=== PATIENT | male | born 1950 | race Caucasian/White ===

== ENCOUNTER 2017-01-27 15:24 | Inpatient (IN) | payer MEDICARE ==
[~2017-01-27] VITALS: Ht 170.2 cm; Wt 78.0 kg
[2017-02-17] MEDS ORDERED: TRAM50TA PO (14:08)
[2017-02-17] MEDS ORDERED: CYAN100025 SL (14:08)
[2017-02-17] MEDS ORDERED: CALC1TAB12 PO (14:08)
[2017-02-17] MEDS ORDERED: VITA100018 PO (14:08)
[2017-02-17] MEDS ORDERED: TYLE325T PO (14:08)
[2017-02-17] MEDS ORDERED: MULT-65 PO (14:13)
[2017-02-17] MEDS ORDERED: OMEGCAP PO (14:13)
[2017-02-17] MEDS ORDERED: ECHI80CA PO (14:13)
[2017-02-24] MEDS ORDERED: NEOSTIGMINE 3 MG/3 ML SYR IV ONE (12:00)
[2017-02-24] MEDS ORDERED: LACTATED RINGER'S 1000 ML INJ 2,000 ML IV ONE (12:00)
[2017-02-24] MEDS ORDERED: PROPOFOL 200 MG/20 ML AMP IV ONE (12:00)
[2017-02-24] MEDS ORDERED: ONDANSETRON HCL 4 MG/2 ML VIAL IV PUSH ONE (12:00)
[2017-02-24] MEDS ORDERED: PHENYLEPH/NS 1000 MCG/10 ML SYR IV ONE (12:00)
[2017-02-24] MEDS ORDERED: METOPROLOL TARTRATE 25 MG TAB PO PRN (12:15)
[2017-02-24] MEDS ORDERED: LACTATED RINGER'S 1000 ML IV PRN (12:15)
[2017-02-24] MEDS ORDERED: CHLORHEXIDINE GLUCONATE 2 % 1 PACK (2 CLOTHS) TOPICAL PRN (12:15)
[2017-02-24] MEDS ORDERED: ceFAZolin 1,000 MG/NS 100 ML IV SCH ×2 (12:15)
[2017-02-24] MEDS ORDERED: POVIDONE IODINE 5% (ANTISEPSIS KIT) 4 APPLICATIONS EACH NARE PRN (12:15)
[2017-02-24] MEDS ORDERED: SODIUM CHLORID 0.9% 500 ML IV PRN (12:15)
[2017-02-24] MEDS ORDERED: METRONIDAZOLE 500 MG/100 ML ISONTONIC SOLN IV SCH (12:15)
[2017-02-24] MEDS ORDERED: ALVIMOPAN 12 MG CAPSULE - On Call PO SCH (12:15)
[2017-02-24] MEDS ORDERED: INSULIN HUMAN REGULAR 1,000 UNITS/10 ML VIAL SQ PRN (12:15)
[2017-02-24] MEDS ORDERED: DEXT 5%-NACL 0.9% 1000 ML INJ 1,000 ML IV SCH (12:30)
--- NOTE | 2017-02-24 13:08 | PD.HP.UP ---
H&P Update Note The Pre-Admit History and Physical Examination regarding the above named patient was reviewed (including, but not limited to, vital signs, heart, lungs, co-morbid conditions), and upon re-examination it is noted that: the patient's condition has not significantly changed since the last examination. Zeb Santiago MD Feb 24, 2017 13:08
[2017-02-24] MEDS ORDERED: FAMOTIDINE 20 MG/2 ML VIAL ONE (13:14)
[2017-02-24] MEDS ORDERED: ACETAMINOPHEN 1000 MG/100 ML 100 ML IV ONE (13:14)
[2017-02-24] MEDS ORDERED: MIDAZOLAM HCL 2 MG/2 ML VIAL ONE (13:14)
[2017-02-24] MEDS: D5-LR + KCL 20 MEQ INJ 1,000 ML IV SCH ×4 (15:17→23:17)
[2017-02-24] MEDS ORDERED: POTASSIUM CHLOR 20 MEQ PREMIX 100 ML IV PRN (15:30)
[2017-02-24] MEDS ORDERED: ACETAMINOPHEN/HYDROcodone 325 MG/5 MG TAB PO PRN (15:30)
[2017-02-24] MEDS ORDERED: BENZOCAINE 6 MG/MENTHOL 10 MG LOZENGE BUCCAL PRN (15:30)
[2017-02-24] MEDS ORDERED: ONDANSETRON HCL 4 MG/2 ML VIAL IV PRN (15:30)
[2017-02-24] MEDS ORDERED: NALOXONE HCL 0.4 MG/ML AMP IV PRN (15:30)
[2017-02-24] MEDS ORDERED: POTASSIUM CHLOR 40 MEQ PREMIX 100 ML IV PRN (15:30)
[2017-02-24] MEDS ORDERED: SODIUM CHLORIDE 0.9% FLUSH 10 ML FLUSH IV FLUSH PRN (15:30)
[2017-02-24] MEDS ORDERED: ENALAPRILAT 1.25 MG/ML VIAL IV PRN (15:30)
[2017-02-24] MEDS ORDERED: Post-op Orders (for Pharmacy) MISC XX ONE (15:30)
[2017-02-24] MEDS ORDERED: *morphine SULFATE 8 MG/ML PERIprocedure ONLY ONE ×2 (15:59→16:37)
[2017-02-24] MEDS ORDERED: DO NOT ADM ANY ANTICOAGULANT DRUGS PRN (16:30)
[2017-02-24 17:12] LABS: AUTOMATED NEUTROPHIL # 5.3 TH/MM3 (1.8-7.7); BASOPHIL % 0.3 % (0.0-2.0); EOSINOPHIL % 0.8 % (0.0-4.0); HEMATOCRIT 39.6 % (39.0-51.0); LYMPH % 7.9 % (9.0-44.0); LYMPHOCYTE # 0.5 TH/MM3 (1.0-4.8); MEAN CELL VOLUME 88.6 FL (80.0-100.0); MEAN CORPUSCULAR HEMOGLOBIN 29.5 PG (27.0-34.0); MEAN CORPUSCULAR HGB CONC 33.3 % (32.0-36.0); MONO % 4.3 % (0.0-8.0); NEUT % 86.7 % (16.0-70.0); PLATELET COUNT 136 TH/MM3 (150-450); RED BLOOD COUNT 4.47 MIL/MM3 (4.50-5.90); RED CELL DISTRIBUTION WIDTH 14.6 % (11.6-17.2); WHITE BLOOD COUNT 6.1 TH/MM3 (4.0-11.0)
[2017-02-24 17:22] LABS: HEMO FLAGS AUTO DIFF
[2017-02-24] MEDS ORDERED: *ENALAPRILAT 1.25 MG/ML VIAL PERIprocedural Use ONLY ONE (17:26)
[2017-02-24] MEDS: METOCLOPRAMIDE HCL 10 MG/2 ML VIAL IVS SCH ×2 (17:31→23:57)
[2017-02-24 17:54] LABS: BICARBONATE 31.3 MEQ/L (21.0-32.0)
[2017-02-24 17:58] LABS: SCAN/DIFF AUTO DIFF CONFIRMED
[2017-02-24] MEDS: MORPHINE SULFATE 30 MG/30 ML PCA IV SCH (18:15)
[2017-02-24 18:30] VITALS: BP 158/58; PULSE 50; PULSE 68; RESP 20; TEMP 97.4; O2SAT 96
[2017-02-24 19:00] VITALS: BP 156/82; PULSE 52; PULSE 59; RESP 14; TEMP 97.9; O2SAT 97
[2017-02-24 20:00] VITALS: PULSE 56
[2017-02-24 21:00] VITALS: PULSE 54
[2017-02-24] MEDS: SODIUM CHLORIDE 0.9% FLUSH 10 ML FLUSH IV FLUSH SCH (21:18)
[2017-02-24] MEDS: FUROSEMIDE 20 MG/2 ML VIAL IV SCH (21:18)
[2017-02-24] MEDS: metroNIDAZOLE 500 MG INJ 100 ML IV SCH (21:18)
[2017-02-24] MEDS: PCA - TOTAL MG MORPHINE DELIVERED PER SHIFT SCH (21:31)
[2017-02-24 22:00] VITALS: PULSE 50
[2017-02-24 23:00] VITALS: BP 140/77; PULSE 56; PULSE 58; RESP 14; TEMP 98.6; O2SAT 96
[2017-02-25] VITALS (21 sets, daily range): BP systolic 141–163; BP diastolic 78–92; PULSE 54–83; RESP 14–20; TEMP 97.5–98.9; O2SAT 96–98
[2017-02-25] MEDS: MORPHINE SULFATE 30 MG/30 ML PCA IV SCH ×2 (00:08→22:24)
[2017-02-25] MEDS: metroNIDAZOLE 500 MG INJ 100 ML IV SCH ×2 (04:00→12:17)
[2017-02-25] MEDS: PCA - TOTAL MG MORPHINE DELIVERED PER SHIFT SCH ×3 (06:00→22:00)
[2017-02-25] MEDS: METOCLOPRAMIDE HCL 10 MG/2 ML VIAL IVS SCH ×4 (06:08→22:26)
[2017-02-25] MEDS: D5-LR + KCL 20 MEQ INJ 1,000 ML IV SCH ×3 (06:09→23:17)
[2017-02-25 06:28] LABS: AUTOMATED NEUTROPHIL # 6.4 TH/MM3 (1.8-7.7); BASOPHIL % 0.1 % (0.0-2.0); LYMPH % 6.4 % (9.0-44.0); LYMPHOCYTE # 0.5 TH/MM3 (1.0-4.8); MEAN CELL VOLUME 87.2 FL (80.0-100.0); MEAN CORPUSCULAR HEMOGLOBIN 29.9 PG (27.0-34.0); MEAN CORPUSCULAR HGB CONC 34.3 % (32.0-36.0); MONO % 9.8 % (0.0-8.0); NEUT % 83.7 % (16.0-70.0); PLATELET COUNT 125 TH/MM3 (150-450); RED BLOOD COUNT 4.13 MIL/MM3 (4.50-5.90); RED CELL DISTRIBUTION WIDTH 14.6 % (11.6-17.2); WHITE BLOOD COUNT 7.6 TH/MM3 (4.0-11.0)
[2017-02-25 06:34] LABS: HEMO FLAGS AUTO DIFF
[2017-02-25 06:46] LABS: BICARBONATE 34.3 MEQ/L (21.0-32.0); POTASSIUM 4.4 MEQ/L (3.5-5.1)
[2017-02-25 07:52] LABS: SCAN/DIFF AUTO DIFF CONFIRMED
[2017-02-25] MEDS: SODIUM CHLORIDE 0.9% FLUSH 10 ML FLUSH IV FLUSH SCH ×2 (09:33→20:08)
[2017-02-25] MEDS: ALVIMOPAN 12 MG CAPSULE - Post-op dosing PO SCH ×2 (09:33→20:08)
[2017-02-25] MEDS: PANTOPRAZOLE SODIUM 40 MG VIAL IVP SCH (09:34)
[2017-02-25] MEDS: FUROSEMIDE 20 MG/2 ML VIAL IV SCH ×2 (09:34→20:08)
--- NOTE | 2017-02-25 16:07 | HHI.PR ---
Subjective Remarks No N or V. No BMs. Objective Vital Signs Date Time Temp Pulse Resp B/P (MAP) Pulse Ox O2 Delivery O2 Flow Rate FiO2 02/25/17 15:00 98.7 75 20 162/92 (115) 97 02/25/17 15:00 96 Nasal Cannula 1.00 02/25/17 15:00 80 02/25/17 14:00 79 02/25/17 13:42 18 02/25/17 13:00 75 02/25/17 12:00 71 02/25/17 11:10 97 02/25/17 11:00 78 02/25/17 11:00 98.6 64 20 163/82 (109) 96 02/25/17 11:00 96 Nasal Cannula 1.00 02/25/17 10:00 82 02/25/17 09:58 97 02/25/17 09:00 83 02/25/17 08:00 64 02/25/17 07:00 57 02/25/17 07:00 97 Nasal Cannula 1.00 02/25/17 07:00 98.7 59 20 151/84 (106) 97 02/25/17 06:00 54 02/25/17 06:00 14 02/25/17 05:00 56 02/25/17 04:00 58 02/25/17 03:00 97.5 55 14 141/78 (99) 97 02/25/17 03:00 54 02/25/17 02:00 54 02/25/17 01:00 56 02/25/17 00:35 12 02/25/17 00:08 12 02/25/17 00:00 54 02/24/17 23:00 58 02/24/17 23:00 98.6 56 14 140/77 (98) 96 02/24/17 22:00 50 02/24/17 21:31 14 02/24/17 21:00 54 02/24/17 20:00 56 02/24/17 19:00 97.9 59 14 156/82 (106) 97 02/24/17 19:00 52 02/24/17 18:30 68 02/24/17 18:30 97.4 50 20 158/58 (91) 96 02/24/17 18:15 15 02/24/17 18:00 97.8 53 15 154/81 (105) 100 Nasal Cannula 3 8/31/17 17:30 50 15 164/85 (111) 100 Nasal Cannula 3 02/24/17 17:00 73 17 166/92 (116) 100 Nasal Cannula 3 02/24/17 16:30 67 17 168/95 (119) 98 Nasal Cannula 3 02/24/17 16:15 55 15 174/90 (118) 98 Nasal Cannula 3 I/O 02/24/17 02/24/17 02/24/17 02/25/17 02/25/17 02/25/17 07:00 15:00 23:00 07:00 15:00 23:00 Intake Total 100 ml 2900 ml 3139 ml 1000 ml Output Total 1650 ml 2100 ml Balance 100 ml 1250 ml 1039 ml 1000 ml Intake IV Total 100 ml 2900 ml 3139 ml 1000 ml Output Urine Total 1550 ml 2100 ml Estimated Blood Loss 100 ml Result Diagram: 02/25/17 0520 02/25/17 0520 Objective Remarks VS-S Abd: soft,flat,dressing dry Assessment and Plan Assessment and Plan Stable POD#1 Transfer. 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 PO meds. Advance diet Zeb Santiago MD Feb 25, 2017 16:07
[2017-02-25] MEDS: ACETAMINOPHEN/HYDROcodone 325 MG/5 MG TAB PO PRN (20:07)
[2017-02-25] MEDS ORDERED: ALVIMOPAN 12 MG CAPSULE PO SCH (21:00)
[2017-02-26] VITALS: BP 146/85; PULSE 79; RESP 20; TEMP 98.5; O2SAT 95
[2017-02-26 04:00] VITALS: BP 158/97; PULSE 82; RESP 18; TEMP 98.2; O2SAT 96
[2017-02-26] MEDS: METOCLOPRAMIDE HCL 10 MG/2 ML VIAL IVS SCH ×3 (05:36→17:07)
[2017-02-26] MEDS: PCA - TOTAL MG MORPHINE DELIVERED PER SHIFT SCH ×2 (05:36→14:06)
[2017-02-26 05:49] LABS: AUTOMATED NEUTROPHIL # 5.7 TH/MM3 (1.8-7.7); BASOPHIL % 0.2 % (0.0-2.0); EOSINOPHIL % 0.2 % (0.0-4.0); HEMATOCRIT 38.3 % (39.0-51.0); LYMPH % 7.3 % (9.0-44.0); LYMPHOCYTE # 0.5 TH/MM3 (1.0-4.8); MEAN CELL VOLUME 87.2 FL (80.0-100.0); MEAN CORPUSCULAR HEMOGLOBIN 29.1 PG (27.0-34.0); MEAN CORPUSCULAR HGB CONC 33.4 % (32.0-36.0); MONO % 11.7 % (0.0-8.0); NEUT % 80.6 % (16.0-70.0); PLATELET COUNT 118 TH/MM3 (150-450); RED BLOOD COUNT 4.39 MIL/MM3 (4.50-5.90); RED CELL DISTRIBUTION WIDTH 14.7 % (11.6-17.2)
[2017-02-26 05:51] LABS: HEMO FLAGS AUTO DIFF
[2017-02-26 06:08] LABS: BICARBONATE 35.9 MEQ/L (21.0-32.0); POTASSIUM 4.1 MEQ/L (3.5-5.1)
[2017-02-26 07:46] LABS: SCAN/DIFF AUTO DIFF CONFIRMED
[2017-02-26 08:26] VITALS: BP 179/102; PULSE 83; RESP 16; TEMP 99.3; O2SAT 92
[2017-02-26] MEDS: ALVIMOPAN 12 MG CAPSULE - Post-op dosing PO SCH ×2 (10:26→21:05)
[2017-02-26] MEDS: SODIUM CHLORIDE 0.9% FLUSH 10 ML FLUSH IV FLUSH SCH ×2 (10:26→21:05)
[2017-02-26] MEDS: PANTOPRAZOLE SODIUM 40 MG VIAL IVP SCH (10:26)
[2017-02-26] MEDS: FUROSEMIDE 20 MG/2 ML VIAL IV SCH ×2 (10:26→21:05)
[2017-02-26 12:00] VITALS: BP 151/95; PULSE 97; RESP 16; TEMP 99.9; O2SAT 94
[2017-02-26] MEDS: D5-LR + KCL 20 MEQ INJ 1,000 ML IV SCH (12:31)
--- NOTE | 2017-02-26 15:14 | HHI.PR ---
Subjective Remarks POD#2 s/p left colectomy Comfortable, hungry Objective Vital Signs Date Time Temp Pulse Resp B/P (MAP) Pulse Ox O2 Delivery O2 Flow Rate FiO2 02/26/17 14:06 16 02/26/17 12:00 94 Room Air 02/26/17 12:00 99.9 97 16 151/95 (113) 94 02/26/17 08:26 99.3 83 16 179/102 (127) 92 02/26/17 08:26 93 Room Air 02/26/17 05:36 18 02/26/17 04:00 Nasal Cannula 1.00 02/26/17 04:00 98.2 82 18 158/97 (117) 96 02/26/17 00:00 98.5 79 20 146/85 (105) 95 02/26/17 00:00 Nasal Cannula 1.00 02/25/17 22:24 20 02/25/17 22:00 20 02/25/17 20:12 02/25/17 20:00 Nasal Cannula 1.00 02/25/17 20:00 98.9 82 20 160/89 (112) 96 02/25/17 16:00 83 I/O 02/25/17 02/25/17 02/25/17 02/26/17 02/26/17 02/26/17 07:00 15:00 23:00 07:00 15:00 23:00 Intake Total 3139 ml 1000 ml 2481 ml 1760 ml Output Total 2100 ml 1200 ml 1800 ml Balance 1039 ml 1000 ml 1281 ml -40 ml Intake Oral 960 ml 240 ml IV Total 3139 ml 1000 ml 1521 ml 1520 ml Output Urine Total 2100 ml 1200 ml 1800 ml # Bowel Movements 0 Result Diagram: 02/26/17 0501 02/26/17 0501 Objective Remarks Abdomen soft, nondistended, tender Wound clean Assessment and Plan Assessment and Plan Advance diet Mobilize Watch platelets Farhana Montez MD Feb 26, 2017 15:14
[2017-02-26 15:45] VITALS: BP 143/98; PULSE 88; RESP 16; TEMP 99.8; O2SAT 94
[2017-02-26] MEDS: ACETAMINOPHEN/HYDROcodone 325 MG/5 MG TAB PO PRN ×2 (17:08→21:05)
[2017-02-26 20:00] VITALS: BP 150/96; PULSE 77; RESP 18; TEMP 98.2; O2SAT 95
[2017-02-26] MEDS: ZOLPIDEM TARTRATE 5 MG TAB PO PRN (21:05)
[2017-02-27] VITALS: BP 134/86; PULSE 79; RESP 18; TEMP 98.4; O2SAT 96
[2017-02-27 04:00] VITALS: BP 124/85; PULSE 78; RESP 20; TEMP 98.6; O2SAT 96
[2017-02-27] MEDS: METOCLOPRAMIDE HCL 10 MG/2 ML VIAL IVS SCH ×4 (05:25→17:10)
--- NOTE | 2017-02-27 06:16 | MP ---
cc: DEEPAK COBURN M.D., JOHN T. M.D. DATE OF SURGERY: 02/24/2017 PREOPERATIVE DIAGNOSIS: Distal transverse colon carcinoma. POSTOPERATIVE DIAGNOSIS: Mid transverse colon carcinoma. OPERATIVE PROCEDURE Extended ascending colectomy with ileotransverse anastomosis. ANESTHESIA: General endotracheal anesthesia SURGEON: Dr. Santiago CHIEF ENGINEERING DIVISION: Dr. Thomas. ESTIMATED BLOOD LOSS: 100 cc OPERATING TIME One hour, 15 minutes. OPERATIVE FINDINGS: This patient is well known to dc. About 7 years ago, he was referred to dc for a colon polyp. At that time he weighed 400 pounds and underwent laparotomy for resection of this polyp. However, the polyp could not be found at the time of surgery by colonoscopy with me and with the medical imaging tech who referred him. For this reason, no resection was done. The patient then underwent a follow up colonoscopy about a year later with his medical imaging tech and no polyp was identified. The patient then underwent gastric bypass procedure with Dr. Phan and lost about 250 pounds. He then developed lymphoma and has had five recurrences of the lymphoma treated by Dr. Teresa Coburn. Last year he underwent colonoscopy with Dr. Andrews and was found to have a large polyp in the distal transverse colon that was marked. At that time he had stage IV lymphoma and was being treated with chemotherapy and for this reason could not undergo resection. He came back to [facility] this year for colonoscopy and he was off his chemotherapy for a while and his lymphoma is in remission once again and colonoscopy showed what appeared to be a transverse colon carcinoma. I discussed the case with Dr. Teresa Coburn and he said that his lymphoma was not life threatening at this time or in the near future and, therefore, resection was indicated. At surgery exploration of the abdominal cavity revealed that the liver was palpably normal as was the remainder of the colon and the small bowel. The lesion was more in the mid portion of the transverse colon right over the middle colic vessels so a full right colectomy and extended right colectomy was done including the middle colic vessels and the ileocolic vessels. The anastomosis was done in the distal transverse colon. We could see the gastrojejunostomy that was done for his gastric bypass surgery and it was over the top of the transverse colon but was distal toward the splenic flexure side. It really did not interfere with our surgery other than some adhesions. As mentioned, an extended ascending colectomy was done with an ileal distal transverse colon anastomosis. OPERATIVE TECHNIQUE The patient was placed on the table in the supine position. After adequate general endotracheal anesthesia, the legs were placed in the perineal lithotomy position and the abdomen and perineum were prepped and draped in the usual manner. A transverse supraumbilical skin incision was made and his previous transverse supraumbilical skin incision carried down through the subcutaneous tissue. There was a midline ventral hernia present from his previous laparoscopic gastric bypass surgery because there were several small bowel marci in this hernia sac and we did not use marci during my last surgery. Nevertheless the hernia sac was right in the middle of the incision and it was closed at the time of closure of the abdominal wall. Exploration of the abdominal cavity revealed the lesion previously marked with a tattoo in the midportion of the transverse colon and our attention was turned to the cecum and the ascending colon. It was mobilized along its perineal reflection and the transverse colon was mobilized, mobilizing some momentum from the transverse mesocolon and entering the lesser sac. Once the transverse colon was fully mobilized and the gastrojejunostomy loop was over the distal transverse colon, we elected to divide the transverse colon just distal to the midline using an Ethicon ALECIA 55 stapling device. Next the ileocolic vessels were identified and the terminal ileum was divided between Ryan clamps and the ileocolic vessels were doubly clamped, cut and doubly ligated at their origin, and our attention was turned to the middle colic vessels. The middle colic vessels were really two vessels and they were both doubly clamped, cut and doubly ligated with 0 Vicryl ligatures and then the marginal vessel was clamped, cut and ligated. The specimen was removed from the table. The anastomosis was carried out along the antimesenteric border of the small bowel and the transverse colon with an Ethicon ALECIA 55 stapling device and the colotomy was closed with a TX 60 blue staple height stapling device. Once this was done the mesentery was approximated with running 3-0 Vicryl suture in a simple running manner. Hemostasis was maintained throughout with electrocautery and ligature. Once this was done the abdominal cavity was irrigated thoroughly with saline solution, aspirated dry, and the abdominal contents were replaced in the abdominal cavity in an tipple greaser manner and the abdominal cavity was then closed in layers using a double-stranded #1 PDS for the posterior rectus sheath and then that layer was irrigated thoroughly with a liter of saline solution. Then the anterior rectus sheath was also closed with a double-stranded #1 PDS as well. Subcutaneous tissue was irrigated thoroughly with a liter of saline solution and aspirated dry and then the skin was closed with running 3-0 Vicryl subcuticular suture and a dressing was applied. Sponge, needle and instrument counts were reported as correct. The estimated blood loss was 100 cc. The patient tolerated the procedure well and left the operating room in good condition. MD ANA MARÍA Williamson/GEOFFREY /5:16 PM /5:27 AM
[2017-02-27 07:00] VITALS: BP 127/78; PULSE 91; RESP 20; TEMP 99.1; O2SAT 94
[2017-02-27] MEDS: FUROSEMIDE 20 MG/2 ML VIAL IV SCH (08:40)
[2017-02-27] MEDS: PANTOPRAZOLE SODIUM 40 MG VIAL IVP SCH (08:40)
[2017-02-27] MEDS: SODIUM CHLORIDE 0.9% FLUSH 10 ML FLUSH IV FLUSH SCH ×2 (08:40→20:27)
[2017-02-27] MEDS: ACETAMINOPHEN/HYDROcodone 325 MG/5 MG TAB PO PRN ×4 (08:41→20:19)
[2017-02-27] MEDS: ALVIMOPAN 12 MG CAPSULE - Post-op dosing PO SCH ×2 (08:41→20:19)
[2017-02-27 11:00] VITALS: BP 121/76; PULSE 99; RESP 19; TEMP 98.7; O2SAT 94
--- NOTE | 2017-02-27 12:22 | HHI.PR ---
Subjective Remarks POD#3 s/p extended right colectomy Comfortable, anxious to go home Objective Vital Signs Date Time Temp Pulse Resp B/P (MAP) Pulse Ox O2 Delivery O2 Flow Rate FiO2 02/27/17 11:00 98.7 99 19 121/76 (91) 94 02/27/17 09:51 18 02/27/17 07:00 94 Room Air 02/27/17 07:00 99.1 91 20 127/78 (94) 94 02/27/17 04:00 98.6 78 20 124/85 (98) 96 02/27/17 00:00 Room Air 02/27/17 00:00 98.4 79 18 134/86 (102) 96 02/26/17 20:00 98.2 77 18 150/96 (114) 95 02/26/17 15:45 99.8 88 16 143/98 (113) 94 02/26/17 15:45 94 Room Air 02/26/17 14:06 16 I/O 02/26/17 02/26/17 02/26/17 02/27/17 02/27/17 02/27/17 07:00 15:00 23:00 07:00 15:00 23:00 Intake Total 1760 ml 4761 ml 780 ml Output Total 1800 ml 3075 ml 2000 ml Balance -40 ml 1686 ml -1220 ml Intake Oral 240 ml 880 ml 480 ml IV Total 1520 ml 3881 ml 300 ml Output Urine Total 1800 ml 3075 ml 2000 ml # Bowel Movements 0 0 0 Result Diagram: 02/26/17 0501 02/26/17 0501 Objective Remarks Abdomen soft, nondistended, tender Wound clean Assessment and Plan Assessment and Plan Await bowel function Farhana Montez MD Feb 27, 2017 12:22
[2017-02-27 15:00] VITALS: BP 119/70; PULSE 88; RESP 17; O2SAT 96
[2017-02-27 20:00] VITALS: BP_SYST 131; BP_SYST 134; BP_DIAS 63; BP_DIAS 71; PULSE 71; PULSE 92; RESP 17; RESP 20; TEMP 97.4; TEMP 99.6; O2SAT 94; O2SAT 96
[2017-02-28] VITALS: BP 110/59; PULSE 83; RESP 17; TEMP 97.9; O2SAT 94
[2017-02-28] MEDS: ZOLPIDEM TARTRATE 5 MG TAB PO PRN (00:12)
[2017-02-28] MEDS: ACETAMINOPHEN/HYDROcodone 325 MG/5 MG TAB PO PRN ×3 (01:12→11:20)
[2017-02-28] MEDS: METOCLOPRAMIDE HCL 10 MG/2 ML VIAL IVS SCH ×3 (05:37→11:21)
[2017-02-28 08:00] VITALS: BP 131/77; PULSE 78; RESP 16; TEMP 97.1; O2SAT 95
[2017-02-28] MEDS: SODIUM CHLORIDE 0.9% FLUSH 10 ML FLUSH IV FLUSH SCH (08:28)
[2017-02-28] MEDS: ALVIMOPAN 12 MG CAPSULE - Post-op dosing PO SCH (08:28)
[2017-02-28] MEDS: PANTOPRAZOLE SODIUM 40 MG VIAL IVP SCH (08:28)
[2017-02-28 12:00] VITALS: BP 116/67; PULSE 78; RESP 14; TEMP 97.4; O2SAT 95
[2017-02-28 12:20] VITALS: RESP 18
--- NOTE | 2017-02-28 12:30 | HHI.PR ---
Subjective Remarks POD#4 s/p extended right colectomy Comfortable Objective Vital Signs Date Time Temp Pulse Resp B/P (MAP) Pulse Ox O2 Delivery O2 Flow Rate FiO2 02/28/17 12:00 97.4 78 14 116/67 (83) 95 02/28/17 08:17 16 02/28/17 08:00 97.1 78 16 131/77 (95) 95 02/28/17 00:00 97.9 83 17 110/59 (76) 94 02/27/17 20:00 99.6 92 17 131/71 (91) 96 02/27/17 15:00 88 17 119/70 (86) 96 I/O 02/27/17 02/27/17 02/27/17 02/28/17 02/28/17 02/28/17 07:00 15:00 23:00 07:00 15:00 23:00 Intake Total 780 ml 600 ml 240 ml Output Total 2000 ml 800 ml Balance -1220 ml -200 ml 240 ml Intake Oral 480 ml 600 ml 240 ml IV Total 300 ml Output Urine Total 2000 ml 800 ml # Voids 1 1 # Bowel Movements 0 Result Diagram: 02/26/17 0501 02/26/17 0501 Objective Remarks Abdomen soft, nondistended, tender Wound clean Assessment and Plan Assessment and Plan Moving semi-solid stools Home today Followup with Dr. Santiago 3 weeks Farhana Montez MD Feb 28, 2017 12:30
[2017-02-28] MEDS ORDERED: HYDR-3516 PO (12:33)
--- NOTE | 2017-03-29 12:40 | MD ---
cc: JOSÉ MIGUEL MCCONNELL M.D., DONALD G. M.D. 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 OPERATIVE PROCEDURE 02/24/2017 - Extended ascending colectomy with ileotransverse anastomosis. HISTORY This patient was well-known to [facility] up. About seven years prior to this surgery he was referred to [facility] for a colon polyp. At that time he weighed 400 pounds and underwent laparotomy for resection of this polyp. However, the polyp could not be identified at the time of surgery, at colonoscopy by nv or the monitor and storage bin tender who referred him to nv. For this reason no resection was done. The patient then underwent follow-up colonoscopy about a year later with a monitor and storage bin tender and no polyp was identified. The patient then underwent gastric bypass procedure with Dr. Phan and lost about 250 pounds. He then developed a lymphoma and has had five recurrences of lymphoma treated by Dr. Teresa Coburn. Last year he underwent a colonoscopy with Dr. Andrews and was found to have a large polyp in the distal transverse colon there was marked. At that time he had Stage IV lymphoma and was being treated with chemotherapy and for this reason could not undergo resection. He came back to me this year for a colonoscopy when he was off of his chemotherapy for awhile for his lymphoma and has lymphoma is once again in remission for a period of time. At colonoscopy he appeared to have what appeared to be a transverse colon carcinoma. At that time. I discussed the situation with Dr. Coburn an he said his lymphoma was not life-threatening at this time or in the near future and therefore resection was indicated. 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 All margins were uninvolved by invasive carcinoma, high-grade dysplasia or intramucosal carcinoma. The tumor only invaded the lamina propria and the muscularis mucosa. 0/17 lymph nodes were identified as metastatic and this was a Tis N0 lesion. HOSPITAL COURSE The patient was admitted to the hospital on 02/24/2017 and underwent extended right colectomy. On the first postoperative day he was started on a clear liquid diet. On the second postoperative day he was started on a full liquid diet and on the third postoperative day he was started on a regular diet. He continued to progress and was discharged from the hospital on postoperative day four in good condition. DISCHARGE INSTRUCTIONS He was instructed to do no lifting for 6 weeks and instructed to no driving for 2 weeks. He was instructed to call me for followup within three weeks' time. MD ANA MARÍA Williamson/SAVITA /8:11 AM /12:37 PM
== END 2017-02-28 14:35 | disposition home or self-care (01) | DRG 327 ==
LOC: HSDI 02-24 11:17 → HCIS 02-24 18:00 → N07B 02-27 19:51
PROVIDERS: ADMIT Colon & Rectal Surgery; ATTEND Colon & Rectal Surgery
PROC: 0D160ZA Bypass Stomach to Jejunum, Open Approach (ICD-10-PCS; 2017-02-24)
PROC: 0DBK0ZZ Excision of Ascending Colon, Open Approach (ICD-10-PCS; principal; 2017-02-24 13:25)
DX: C18.4 Malignant neoplasm of transverse colon (principal); C85.90 Non-Hodgkin lymphoma, unspecified, unspecified site; Z92.21 Personal history of antineoplastic chemotherapy
CPT/HCPCS: 80048; 85025; 88309; 94150; C9113; J0131; J0690; J1940; J2250; J2270; J2370; J2405; J2710; J2765; J3010; J3480; J7120

== ENCOUNTER → 2017-02-17 | Outpatient (CLI) | payer MEDICARE ==
[~2017-02-17] MED LIST: ACET650T10 PR; CALC1TAB12 PO; CALC500C6 PO; CHOL1CAP6 CHEW; CYAN100025 SL; ECHI80CA PO; HYDR-3516 PO; IRON28TA2 PO; MORP1INJ45 PO; MSIR15 PO; MULT-65 PO; OMEGCAP PO; OMEGCAP21 PO; STOO100T PO; TAB-TAB CHEW; TRAM50TA PO; TYLE325T PO; VITA100018 PO; VITA10002 PO
[2017-02-17 09:01] LABS: AUTOMATED NEUTROPHIL # 3.2 TH/MM3 (1.8-7.7); BASOPHIL % 0.5 % (0.0-2.0); EOSINOPHIL # 0.1 TH/MM3 (0-0.4); EOSINOPHIL % 2.3 % (0.0-4.0); HEMATOCRIT 39.7 % (39.0-51.0); HEMO FLAGS DIFF FINAL; LYMPH % 13.9 % (9.0-44.0); LYMPHOCYTE # 0.6 TH/MM3 (1.0-4.8); MEAN CELL VOLUME 87.9 FL (80.0-100.0); MEAN CORPUSCULAR HEMOGLOBIN 29.6 PG (27.0-34.0); MEAN CORPUSCULAR HGB CONC 33.7 % (32.0-36.0); MONO % 9.5 % (0.0-8.0); NEUT % 73.8 % (16.0-70.0); PLATELET COUNT 127 TH/MM3 (150-450); RED BLOOD COUNT 4.52 MIL/MM3 (4.50-5.90); RED CELL DISTRIBUTION WIDTH 14.6 % (11.6-17.2); WHITE BLOOD COUNT 4.4 TH/MM3 (4.0-11.0)
[2017-02-17 09:12] LABS: APTT (PATIENT) 25.7 SEC (24.3-30.1); PROTHROMBIN TIME - PATIENT 10.7 SEC (9.8-11.6)
[2017-02-17 09:15] LABS: BLOOD, URINE NEG (NEG); GLUCOSE,URINE NEG (NEG); KETONE, URINE NEG (NEG); NITRITE,URINE NEG (NEG); URINE COLOR YELLOW (YELLW/STRAW)
[2017-02-17 09:16] LABS: COMMENT (UR) CULT NOT INDICATED; CULTURE IF INDICATED CULT NOT INDICATED
--- NOTE | 2017-02-17 09:35 | RADRPT ---
EXAM DATE/TIME: 02/17/2017 08:41 [facility] COMPARISON: No previous studies available for comparison. INDICATIONS : Evaluate for pneumonia, pneumothorax or communicable disease. Pre op colectomy. MEDICAL HISTORY : Hypertension. non hodgkins lymphoma SURGICAL HISTORY : Gastric bypass. Cholecystectomy. ENCOUNTER: Initial ACUITY: 1 day PAIN SCORE: 0/10 LOCATION: Bilateral chest FINDINGS: PA and lateral views of the chest demonstrate the lungs to be symmetrically aerated without evidence of mass, infiltrate or effusion. Left subclavian [id number] with tip in the proximal SVC. The car diomediastinal contours are unremarkable. Osseous structures are intact. CONCLUSION: 1. No acute cardiopulmonary disease. Malcom Maguire MD on February 17, 2017 at 9:29 Board Certified Radiologist. This report was verified electronically.
[2017-02-17 09:38] LABS: ANION GAP 4 MEQ/L (5-15); AST (GOT) 30 U/L (15-37); BICARBONATE 33.8 MEQ/L (21.0-32.0); BLOOD UREA NITROGEN 13 MG/DL (7-18); CHLORIDE 102 MEQ/L (98-107); GLOMERULAR FILTRATION RATE 98 ML/MIN (>89); GLUCOSE,FASTING 88 MG/DL (74-99); POTASSIUM 3.9 MEQ/L (3.5-5.1); SODIUM (NA) 140 MEQ/L (136-145)
[2017-02-17 09:39] LABS: ALT (GPT) 31 U/L (12-78)
[2017-02-17 09:42] LABS: ALKALINE PHOSPHATASE 108 U/L (45-117); TOTAL BILIRUBIN ADULT 0.6 MG/DL (0.2-1.0)
--- NOTE | 2017-02-17 11:14 | EKG ---
Date Performed: 02/17/2017 Time Performed: 08:08:32 PTAGE: 66 years EKG: SINUS BRADYCARDIA WITH FIRST DEGREE AV BLOCK LEFT AXIS DEVIATION RIGHT BUNDLE BRANCH BLOCK ABNORMAL ECG NO PREVIOUS TRACING DOCTOR: Steve Zepeda Interpretating Date/Time 02/17/2017 11:11:54
== END ==
LOC: CPRE 07:48
PROVIDERS: ATTEND Colon & Rectal Surgery
DX: Z01.812 Encounter for preprocedural laboratory examination (principal); Z01.811 Encounter for preprocedural respiratory examination; Z01.810 Encounter for preprocedural cardiovascular examination; C18.5 Malignant neoplasm of splenic flexure; I44.0 Atrioventricular block, first degree
CPT/HCPCS: 36415; 71020; 80053; 81001; 82378; 85025; 85610; 85730; 93005

== ENCOUNTER 2017-09-14 13:42 | Day surgery (SDC) | payer MEDICARE ==
[~2017-09-14 13:42] MED LIST changes: -ACET650T10 PR; -CALC500C6 PO; -CHOL1CAP6 CHEW; -IRON28TA2 PO; -MORP1INJ45 PO; -MSIR15 PO; -OMEGCAP21 PO; -STOO100T PO; -TAB-TAB CHEW; -TRAM50TA PO; -TYLE325T PO; -VITA10002 PO
[2017-09-14 14:55] VITALS: BP 149/87; PULSE 60; RESP 18; TEMP 97; O2SAT 97
[2017-09-14] MEDS ORDERED: TRAM50TA PO (14:57)
[2017-09-14 15:35] VITALS: BP 151/83; PULSE 62; RESP 20; TEMP 98.1; O2SAT 91
--- NOTE | 2017-09-14 15:37 | PD.RAD ---
Post Procedure Progress Note Pre Procedure Diagnosis: (1) Non-Hodgkin lymphoma Post Procedure Diagnosis: (1) Non-Hodgkin lymphoma Procedure Date: Sep 14, 2017 Supervising Radiologist: Usama Schulte Estimated blood loss: none Plan of Activity Patient to Unit: [facility]OP[facility] Patient Condition: Good Additional Comments: Left sided infusaport evaluated. Port catheter is intravascular in the distal left subclavian vein. 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 See PACS Report for procedural detail/treatment Usama Schulte MD Sep 14, 2017 15:37
--- NOTE | 2017-09-14 16:33 | RADRPT ---
EXAM DATE/TIME: 09/14/2017 15:24 [facility] COMPARISON: CT THORAX W/O CONTRAST, March 19, 2016, 15:18. INDICATIONS : Patient presents with non hodgkins lymphoma in need of port patency injection for further evaluation. MEDICAL HISTORY : Non hodgkins lymphoma Splenic CA Arthritis SURGICAL HISTORY : Right shoulder sx Gastric bypass Choley ENCOUNTER: Initial ACUITY: 4-6 months PAIN SCORE: 0/10 LOCATION: N/A FLUORO TIME: 0.3 minutes IMAGE SERIES: 2 CONTRAST: 1.) 10 cc Omnipaque (iohexol) 350 MEDICATION(S): 1.) 200 units Heparin IV PROCEDURE : 1. Access of [id number]. 2. Port patency injection. The risks, benefits and alternatives to the procedure were explained and verbal and written consent w as obtained. The patient was placed supine. The port was prepped in sterile fashion. Full sterile t echnique was used, including cap, mask, sterile gloves and gown, and a large sterile sheet. Hand hyg iene and 2% chlorhexidine prep was utilized per protocol for cutaneous antisepsis with appropriate dr y time for site. The previously placed port was accessed and positive contrast was injected for evaluation. Injection demonstrates the tubing from the catheter to be in the central portion of the left subclavian vein. 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 In the Injection of the port demonstrates a multiple collaterals within the left neck and drainage via multiple pericardial collaterals. This wou ld suggest possible SVC occlusion as well. CONCLUSION: 1. The tubing from the port is intravascular in the left subclavian vein at the junction of the subcl norma vein and the SVC there is occlusion of the outflow from the subclavian vein with numerous colla teral veins in the mediastinum and pericardium this would suggest possible SVC occlusion as well. 2. The SVC could not be definitively assessed on this exam as there was no filling. Usama Schulte MD on September 14, 2017 at 16:28 Board Certified Radiologist. This report was verified electronically.
== END 2017-09-14 15:55 | disposition home or self-care (01) ==
LOC: HROP 13:42 → HRIP 13:45 → HROP 15:55
PROVIDERS: ATTEND Internal Medicine Hematology & Oncology
DX: T85.698A Other mechanical complication of other specified internal prosthetic devices, implants and grafts, initial encounter (principal); I82.B22 Chronic embolism and thrombosis of left subclavian vein; C85.90 Non-Hodgkin lymphoma, unspecified, unspecified site; M19.90 Unspecified osteoarthritis, unspecified site
CPT/HCPCS: 36598

== ENCOUNTER 2017-12-13 18:59 | Inpatient (IN) | payer MEDICARE ==
[2017-12-13] VITALS (7 sets, daily range): BP systolic 144–158; BP diastolic 73–97; PULSE 94–109; RESP 16; TEMP 99.5–100.9; O2SAT 94–100
[~2017-12-13] VITALS: Ht 170.2 cm; Wt 86.0 kg
[~2017-12-13 18:59] MED LIST changes: +TRAM50TA PO
[2017-12-13] MEDS ORDERED: ACETAMINOPHEN 325 MG TAB PO ONE (20:00)
--- NOTE | 2017-12-13 20:05 | PD ---
Physical Exam Date Seen by Provider: Dec 13, 2017 Time Seen by Provider: 19:59 Narrative Seen along with mid-level provider Data Data Last Documented VS Vital Signs Date Time Temp Pulse Resp B/P (MAP) Pulse Ox O2 Delivery O2 Flow Rate FiO2 12/13/17 20:50 97 Room Air 12/13/17 20:44 109 16 12/13/17 19:17 100.9 Orders Orders Sepsis Workup Initiated (12/13/17 ) Complete Blood Count With Diff (12/13/17 20:00) Comprehensive Metabolic Panel (12/13/17 20:00) Prothrombin Time / Inr (Pt) (12/13/17 20:00) Act Partial Throm Time (Ptt) (12/13/17 20:00) Lactic Acid Sepsis Protocol (12/13/17 20:00) Urinalysis - C+S If Indicated (12/13/17 20:00) Blood Culture (12/13/17 20:00) Chest, Single Ap (12/13/17 20:00) Ecg Monitoring (12/13/17 20:00) Iv Access Insert/Monitor (12/13/17 20:00) Oximetry (12/13/17 20:00) Acetaminophen (Tylenol) (12/13/17 20:00) Uric Acid (12/13/17 20:02) Phosphorus (Po4) (12/13/17 20:02) Electrocardiogram (12/13/17 ) Cefepime Inj (Maxipime Inj) (12/13/17 21:45) Sodium Chlor 0.9% 1000 Ml Inj (Ns 1000 M (12/13/17 21:45) Labs Laboratory Tests Test 12/13/17 21:00 12/13/17 22:17 White Blood Count 2.4 TH/MM3 Red Blood Count 4.02 MIL/MM3 Hemoglobin 12.7 GM/DL Hematocrit 37.9 % Mean Corpuscular Volume 94.2 FL Mean Corpuscular Hemoglobin 31.7 PG Mean Corpuscular Hemoglobin Concent 33.7 % Red Cell Distribution Width 16.5 % Platelet Count 126 TH/MM3 Mean Platelet Volume 7.9 FL Neutrophils (%) (Auto) 77.7 % Lymphocytes (%) (Auto) 11.0 % Monocytes (%) (Auto) 10.7 % Eosinophils (%) (Auto) 0.2 % Basophils (%) (Auto) 0.4 % Neutrophils # (Auto) 1.9 TH/MM3 Lymphocytes # (Auto) 0.3 TH/MM3 Monocytes # (Auto) 0.3 TH/MM3 Eosinophils # (Auto) 0.0 TH/MM3 Basophils # (Auto) 0.0 TH/MM3 CBC Comment DIFF FINAL Differential Comment Prothrombin Time 10.3 SEC Prothromb Time International Ratio 1.0 RATIO Activated Partial Thromboplast Time 23.0 SEC Blood Urea Nitrogen 11 MG/DL Creatinine 0.80 MG/DL Random Glucose 89 MG/DL Total Protein 7.0 GM/DL Albumin 3.6 GM/DL Calcium Level 8.7 MG/DL Alkaline Phosphatase 114 U/L Aspartate Amino Transf (AST/SGOT) 126 U/L Alanine Aminotransferase (ALT/SGPT) 73 U/L Total Bilirubin 0.6 MG/DL Sodium Level 141 MEQ/L Potassium Level 3.5 MEQ/L Chloride Level 102 MEQ/L Carbon Dioxide Level 29.7 MEQ/L Anion Gap 9 MEQ/L Estimat Glomerular Filtration Rate 97 ML/MIN Lactic Acid Level 1.2 mmol/L Uric Acid 9.5 MG/DL Phosphorus Level 3.0 MG/DL [facility] Medical Record Reviewed: Yes Supervised Visit with MARITZA: Yes Interpretation(s) Last Impressions Chest X-Ray 12/13/171999 Signed Impressions: CONCLUSION: 1. No acute cardiopulmonary disease. CBC & BMP Diagram 12/13/17 21:00 Total Protein 7.0, Albumin 3.6, Calcium Level 8.7, Alkaline Phosphatase 114, Aspartate Amino Transf (AST/SGOT) 126 H, Alanine Aminotransferase (ALT/SGPT) 73 , Total Bilirubin 0.6 Vital Signs Date Time Temp Pulse Resp B/P (MAP) Pulse Ox O2 Delivery O2 Flow Rate FiO2 12/13/17 20:50 97 Room Air 12/13/17 20:44 109 16 157/97 (117) 100 Room Air 12/13/17 19:17 100.9 109 16 150/85 (106) 98 Differential Diagnosis Febrile illness, sepsis, neutropenia, pneumonia, UTI, cellulitis, bacteremia Narrative Course I, Dr. York, have reviewed the advance practice practitioner's documentation and am in agreement, met with the patient face to face, made the diagnosis, and the medical decision making was done by me. *My assessment and Findings: 67-year-old male presents to the emergency department for 1 day of fever and chills. Symptoms began today. Patient recently completed course of 6 treatments for non-Hodgkin's lymphoma yesterday. Patient is under the care of Dr. Coburn as well as primary doctor Bea Andrews and Dr. Cortes. Patient was initially diagnosed with non- Hodgkin's lymphoma 2005 underwent 6 cycles of Rituxan and CHOP went into remission and then had relapse October 2007 completed Rituxan after 2 years in 2010 then had additional relapse in December 2014 with a left neck mass underwent Rituxan Treanda 6 cycles completed course in June 2015 and went into remission had relapsed again and November 2015 underwent radiation therapy was treated with 12 cycles of Gemzar and oxaliplatin and went into remission October 2016 and then subsequently May 2017 CT of the neck chest abdomen pelvis showed disease in the left subclavicular lymph node is referred to Dr. Cortes underwent radiation therapy a skin lesion was noted to the right chest wall and this was biopsied and did come back again diffuse large cell B-cell non-Hodgkin' s lymphoma and restarted chemotherapy on Rituxan/Gemzar/oxaliplatin August 2017 which he completed yesterday. Patient also has history of diabetes GERD dyslipidemia hypertension is a Oriental orthodox previous cholecystectomy partial charisma-colectomy expiratory laparotomy gastric bypass herniorrhaphy and colonoscopy. Patient has done well except for bouts of low platelet count until today. Patient does not voice any focal area of symptoms. At this point time patient presents with temperature elevation 100.6F with tachycardia will be addressed for sepsis with IV access IV fluids administration antipyretic administration of IV antibiotic therapy with chest x-ray blood cultures lactic acid and urine specimen collected. Sepsis Criteria SIRS Criteria (2 or more): Temp > 100.9 or < 96.8, Heart rate over 90 Diagnosis Primary Impression: SIRS (systemic inflammatory response syndrome) Additional Impressions: Pancytopenia due to chemotherapy Non-Hodgkin lymphoma Chrissy York MD Dec 13, 2017 20:05
--- NOTE | 2017-12-13 20:08 | PD ---
HPI Chief Complaint: Fever Time Seen by Provider: 19:50 Travel History International Travel<30 days: No Contact w/Intl Traveler<30days: No Traveled to known affect area: No History of Present Illness HPI 67y male presents to the ED for concerns of fever that started yesterday. Says he had his last round of chemotherapy for Stage IV Non Hodgkins Lymphoma yesterday and started developing fevers up to 101. Says he called his feather sawyer, Dr. Leon and the call service recommended he come here today for evaluation. Says last time he developed fever was at initial diagnosis and treatment around 2004. He denies chest pain, shortness of breath, abdominal pain, nausea, vomiting, diarrhea, urinary symptoms. He says that he has had chemo for the last 8 weeks without any issue. Other chronic issues include chronic low back pain, shoulder pain, and muscular dystrophy. Patient is going to [facility] for evaluation of this dystrophy. His primary care physician is Dr. Álvaro Henson. FORMERLY [facility] Past Medical History Arthritis: Yes Autoimmune Disease: No Blood Disorders: No Depression: Yes Heart Rhythm Problems: No Cancer: Yes (NHL, SPLENIC CA) Cardiovascular Problems: No High Cholesterol: Yes Chemotherapy: Yes (last dose yesterday) Chest Pain: No Diabetes: No Diminished Hearing: No Endocrine: No GERD: No Glaucoma: No Genitourinary: No Hepatitis: No Hiatal Hernia: No Hypertension: Yes (RESOLVED W/ WT LOSS) Immune Disorder: Yes (NON HODGKINS LYMPHOMA) Implanted Vascular Access Dvce: Yes (port left chest) Musculoskeletal: Yes (BACK PAIN (S/P TRAUMA)) Neurologic: Yes (TINGLE IN BOTH HANDS) Psychiatric: No Reproductive: No Respiratory: Yes (SLEEP APNEA RESOLVED WITH WEIGHT LOSS) Radiation Therapy: No Thyroid Disease: No Ulcer: No Past Surgical History Abdominal Surgery: Yes (GASTRIC BYPASS, EXPL. LAP (NO RX), CHOLECYSTECTOMY) AICD: No Body Medical Devices: INFUSAPORT L SIDE OF CHEST Cardiac Surgery: No Cholecystectomy: Yes Ear Surgery: No Endocrine Surgery: No Eye Surgery: No Genitourinary Surgery: Yes Gynecologic Surgery: No Joint Replacement: No Oral Surgery: No Pacemaker: No Thoracic Surgery: No Other Surgery: Yes (benign tumor removed from colon) Social History Alcohol Use: No Tobacco Use: No Substance Use: No Allergies-Medications (Allergen,Severity, Reaction): Coded Allergies: No Known Allergies (Verified Allergy, Unknown, 6/19/18) Reported Meds & Prescriptions Reported Meds & Active Scripts Active Reported Tramadol (Tramadol HCl) 50 Mg Tab 50 Mg PO DAILY PRN Multi-Vitamin Daily (Multiple Vitamin) 1 Tab Tab 1 Tab PO DAILY Echinacea 80 Mg Cap Unknown Dose PO DAILY [place]-3 Fish Oil/Vitamin (Fish Oil-Cholecalciferol) 1,000-1,000 Mg Cap 1 Cap PO DAILY B-12 (Cyanocobalamin) 1,000 Mcg Subl 1,000 Mcg SL DAILY Vitamin D3 (Cholecalciferol) 1,000 Unit Tab 1,000 Units PO DAILY Calcium 500 +D (Calcium Carbonate-Cholecalciferol) 500-400 Mg-Unit Tab 1 Tab PO DAILY Review of Systems Except as stated in HPI: all other systems reviewed are Neg Physical Exam Narrative GENERAL: Well-developed, well-nourished no apparent distress SKIN: Focused skin assessment warm/dry. HEAD: Atraumatic. Normocephalic. EYES: Pupils equal and round. No scleral icterus. No injection or drainage. ENT: No nasal bleeding or discharge. Mucous membranes pink and moist. NECK: Trachea midline. No JVD. No lymphadenopathy CARDIOVASCULAR: Regular rate and rhythm. No murmur appreciated. RESPIRATORY: No accessory muscle use. Clear to auscultation. Breath sounds equal bilaterally. GASTROINTESTINAL: Abdomen soft, non-tender, nondistended. Hepatic and splenic margins not palpable. No CVA tenderness MUSCULOSKELETAL: No obvious deformities. No clubbing. No cyanosis. No edema. NEUROLOGICAL: Awake and alert. No obvious cranial nerve deficits. Motor grossly within normal limits. Normal speech. PSYCHIATRIC: Appropriate mood and affect; insight and judgment normal. Data Data Last Documented VS Vital Signs Date Time Temp Pulse Resp B/P (MAP) Pulse Ox O2 Delivery O2 Flow Rate FiO2 12/13/17 22:39 99.5 12/13/17 22:00 96 16 95 Room Air Orders Orders Sepsis Workup Initiated (12/13/17 ) Complete Blood Count With Diff (12/13/17 20:00) Comprehensive Metabolic Panel (12/13/17 20:00) Prothrombin Time / Inr (Pt) (12/13/17 20:00) Act Partial Throm Time (Ptt) (12/13/17 20:00) Lactic Acid Sepsis Protocol (12/13/17 20:00) Urinalysis - C+S If Indicated (12/13/17 20:00) Blood Culture (12/13/17 20:00) Chest, Single Ap (12/13/17 20:00) Ecg Monitoring (12/13/17 20:00) Iv Access Insert/Monitor (12/13/17 20:00) Oximetry (12/13/17 20:00) Acetaminophen (Tylenol) (12/13/17 20:00) Uric Acid (12/13/17 20:02) Phosphorus (Po4) (12/13/17 20:02) Electrocardiogram (12/13/17 ) Cefepime Inj (Maxipime Inj) (12/13/17 21:45) Sodium Chlor 0.9% 1000 Ml Inj (Ns 1000 M (12/13/17 21:45) Admit Order (Ed Use Only) (12/13/17 22:47) Labs Laboratory Tests Test 12/13/17 21:00 12/13/17 22:17 White Blood Count 2.4 TH/MM3 Red Blood Count 4.02 MIL/MM3 Hemoglobin 12.7 GM/DL Hematocrit 37.9 % Mean Corpuscular Volume 94.2 FL Mean Corpuscular Hemoglobin 31.7 PG Mean Corpuscular Hemoglobin Concent 33.7 % Red Cell Distribution Width 16.5 % Platelet Count 126 TH/MM3 Mean Platelet Volume 7.9 FL Neutrophils (%) (Auto) 77.7 % Lymphocytes (%) (Auto) 11.0 % Monocytes (%) (Auto) 10.7 % Eosinophils (%) (Auto) 0.2 % Basophils (%) (Auto) 0.4 % Neutrophils # (Auto) 1.9 TH/MM3 Lymphocytes # (Auto) 0.3 TH/MM3 Monocytes # (Auto) 0.3 TH/MM3 Eosinophils # (Auto) 0.0 TH/MM3 Basophils # (Auto) 0.0 TH/MM3 CBC Comment DIFF FINAL Differential Comment Prothrombin Time 10.3 SEC Prothromb Time International Ratio 1.0 RATIO Activated Partial Thromboplast Time 23.0 SEC Blood Urea Nitrogen 11 MG/DL Creatinine 0.80 MG/DL Random Glucose 89 MG/DL Total Protein 7.0 GM/DL Albumin 3.6 GM/DL Calcium Level 8.7 MG/DL Alkaline Phosphatase 114 U/L Aspartate Amino Transf (AST/SGOT) 126 U/L Alanine Aminotransferase (ALT/SGPT) 73 U/L Total Bilirubin 0.6 MG/DL Sodium Level 141 MEQ/L Potassium Level 3.5 MEQ/L Chloride Level 102 MEQ/L Carbon Dioxide Level 29.7 MEQ/L Anion Gap 9 MEQ/L Estimat Glomerular Filtration Rate 97 ML/MIN Lactic Acid Level 1.2 mmol/L Uric Acid 9.5 MG/DL Phosphorus Level 3.0 MG/DL Urine Color YELLOW Urine Turbidity CLEAR Urine pH 5.0 Urine Specific [place] 1.009 Urine Protein NEG mg/dL Urine Glucose (UA) NEG mg/dL Urine Ketones NEG mg/dL Urine Occult Blood NEG Urine Nitrite NEG Urine Bilirubin NEG Urine Urobilinogen LESS THAN 2 mg/dL Urine Leukocyte Esterase NEG Urine WBC 1 /hpf Microscopic Urinalysis Comment CATH-CULT NOT IND MDM Medical Decision Making Medical Screen Exam Complete: Yes Emergency Medical Condition: Yes Differential Diagnosis Tumor lysis syndrome, sepsis, urinary tract infection, pneumonia, fever Narrative Course 67y male presents to the ED for concerns of fever that started yesterday. Says he had his last round of chemotherapy for Stage IV Non Hodgkins Lymphoma yesterday and started developing fevers up to 101. Says he called his feather sawyer, Dr. Leon and the call service recommended he come here today for evaluation. Says last time he developed fever was at initial diagnosis and treatment around 2004. He denies chest pain, shortness of breath, abdominal pain, nausea, vomiting, diarrhea, urinary symptoms. He says that he has had chemo for the last 8 weeks without any issue. Other chronic issues include chronic low back pain, shoulder pain, and muscular dystrophy. Patient is going to [facility] for evaluation of this dystrophy. His primary care physician is Dr. Álvaro Henson. Vital signs temperature 100.9, blood pressure 150/85, heart rate 109. Tylenol for fever. EKG shows sinus tachycardia at rate 101. No STEMI changes. Right bundle branch block. CBC & BMP Diagram 12/13/17 21:00 Total Protein 7.0, Albumin 3.6, Calcium Level 8.7, Alkaline Phosphatase 114, Aspartate Amino Transf (AST/SGOT) 126 H, Alanine Aminotransferase (ALT/SGPT) 73 , Total Bilirubin 0.6 Uric acid 9.5, lactic 1.2 Review of the EMR: WBC 2.4 which is lower than the previous several labs. ANC 1.9. Chest x-ray clear. A call was placed to the on-call feather sawyer/oncologist. Dr. Garzon said that patient was rather borderline low however, because of his status and lower white blood cell count he recommended admission for observation and antibiotic coverage. Also recommend a consult be placed to Dr. Coburn tomorrow. Cefepime 1 g administered. Normal saline 1 L. Unclear etiology for fever at this point. I spoke with Dr. Martinez who agreed to the admission. Diagnosis Primary Impression: Fever Qualified Codes: R50.9 - Fever, unspecified Admitting Information Admitting Physician Requests: Observation Condition: Stable Carmen Romeo Dec 13, 2017 20:08
--- NOTE | 2017-12-13 20:43 | RADRPT ---
EXAM DATE: 12/13/2017 8:37 PM EDT AGE/SEX: 67 years / Male INDICATIONS: Fever. CLINICAL DATA: This is the patient's initial encounter. Patient reports that signs and symptoms have been present for 1 day and indicates a pain score of 3/10. MEDICAL/SURGICAL HISTORY: . Non hodgkins lymphoma Splenic CA Arthritis Cholecystectomy. Right shoulder sx, Gastric bypass COMPARISON: [facility], CHEST SINGLE AP, 02/19/2015. . FINDINGS: No new focal pleural or parenchymal opacities. Cardiomediastinal contours are within normal limits. T here is a stable left subclavian port with tip in the very proximal SVC. Bony thorax is intact. CONCLUSION: 1. No acute cardiopulmonary disease. Electronically signed by: Malcom Maguire MD 12/13/2017 8:42 PM EDT
[2017-12-13] MEDS ORDERED: TRAM50TA PO (20:52)
[2017-12-13 21:22] LABS: AUTOMATED NEUTROPHIL # 1.9 TH/MM3 (1.8-7.7); BASOPHIL % 0.4 % (0.0-2.0); EOSINOPHIL % 0.2 % (0.0-4.0); HEMATOCRIT 37.9 % (39.0-51.0); HEMOGLOBIN 12.7 GM/DL (13.0-17.0); LYMPHOCYTE # 0.3 TH/MM3 (1.0-4.8); MEAN CELL VOLUME 94.2 FL (80.0-100.0); MEAN CORPUSCULAR HEMOGLOBIN 31.7 PG (27.0-34.0); MEAN CORPUSCULAR HGB CONC 33.7 % (32.0-36.0); MEAN PLATELET VOLUME 7.9 FL (7.0-11.0); MONO % 10.7 % (0.0-8.0); MONOCYTE # 0.3 TH/MM3 (0-0.9); NEUT % 77.7 % (16.0-70.0); PLATELET COUNT 126 TH/MM3 (150-450); RED BLOOD COUNT 4.02 MIL/MM3 (4.50-5.90); RED CELL DISTRIBUTION WIDTH 16.5 % (11.6-17.2); WHITE BLOOD COUNT 2.4 TH/MM3 (4.0-11.0)
[2017-12-13 21:29] LABS: PROTHROMBIN TIME - PATIENT 10.3 SEC (9.8-11.6)
[2017-12-13 21:44] LABS: ALBUMIN 3.6 GM/DL (3.4-5.0); ALT (GPT) 73 U/L (12-78); AST (GOT) 126 U/L (15-37); BICARBONATE 29.7 MEQ/L (21.0-32.0); BLOOD UREA NITROGEN 11 MG/DL (7-18); CALCIUM 8.7 MG/DL (8.5-10.1); CHLORIDE 102 MEQ/L (98-107); GLOMERULAR FILTRATION RATE 97 ML/MIN (>89); GLUCOSE,RANDOM 89 MG/DL (74-106); SODIUM (NA) 141 MEQ/L (136-145)
[2017-12-13] MEDS ORDERED: CEFEPIME INJ 1,000 MG in SODIUM CHLORIDE 0.9% INJ 100 ML IV ONE (21:45)
[2017-12-13] MEDS ORDERED: SODIUM CHLOR 0.9% 1000 ML INJ 1,000 ML IV ONE (21:45)
[2017-12-13 21:47] LABS: ALKALINE PHOSPHATASE 114 U/L (45-117); TOTAL BILIRUBIN ADULT 0.6 MG/DL (0.2-1.0)
[2017-12-13 22:30] LABS: BILIRUBIN, URINE NEG (NEG); BLOOD, URINE NEG (NEG); GLUCOSE,URINE NEG (NEG); KETONE, URINE NEG (NEG); NITRITE,URINE NEG (NEG); URINE COLOR YELLOW (YELLW/STRAW); URINE LEUKOCYTE ESTERASE NEG (NEG)
[2017-12-13] MEDS ORDERED: VANCOMYCIN INJ 1,000 MG in SODIUM CHLOR 0.9% 250 ML INJ 250 ML IV SCH (23:30)
[2017-12-13] MEDS ORDERED: NALOXONE HCL 0.4 MG/ML AMP IV PUSH PRN (23:30)
[2017-12-13] MEDS ORDERED: traMADol HCL 50 MG TAB PO PRN (23:30)
[2017-12-13] MEDS ORDERED: LACTULOSE SYRUP 20 GM/30 ML CUP PO PRN (23:30)
[2017-12-13] MEDS ORDERED: MAGNESIUM HYDROXIDE SUSP 30 ML CUP PO PRN (23:30)
[2017-12-13] MEDS ORDERED: Vancomycin Consult Pharmacy 1 EA OTHER SCH (23:30)
[2017-12-13] MEDS ORDERED: ACETAMINOPHEN 325 MG TAB PO PRN (23:30)
[2017-12-13] MEDS ORDERED: SODIUM CHLORIDE 0.9% FLUSH 10 ML FLUSH IV FLUSH PRN (23:30)
[2017-12-13] MEDS ORDERED: SENNOSIDES 8.6 MG TAB PO PRN (23:30)
[2017-12-13] MEDS ORDERED: BISACODYL 10 MG SUPP RECTAL PRN (23:30)
--- NOTE | 2017-12-13 23:31 | HHI.HP ---
[facility] Álvaro Henson MD Admission Diagnosis fever, stage IV nonhodgkins lymphoma, unknown source Diagnoses: Travel History International Travel<30 Days: No Contact w/Intl Traveler <30 Da: No Traveled to Known Affected Are: No History of Present Illness 67-year-old male with a past medical history significant for stage IV non- Hodgkin's lymphoma presents the emergency department for the evaluation of a fever. The patient reports that around 5 PM he suddenly had subjective fevers/ chills and his took his temperature. His temperature at home was 101.5. He called his oncologist office who recommended he come to the emergency department for further evaluation. He endorses an accompanying headache. Denies cough or congestion. No dysuria. No chest pain or shortness of breath. No abdominal pain. No nausea/vomiting/diarrhea. No lateralizing signs/ symptoms. Review of Systems Except as stated in HPI: all other systems reviewed are Neg Past Family Social History Past Medical History Stage IV non-Hodgkin's lymphoma Muscular degeneration, unspecified type, being worked up at [place] Past Surgical History Gastric bypass Partial colectomy Reported Medications Reported Meds & Active Scripts Active Reported Tramadol (Tramadol HCl) 50 Mg Tab 50 Mg PO DAILY PRN Multi-Vitamin Daily (Multiple Vitamin) 1 Tab Tab 1 Tab PO DAILY Echinacea 80 Mg Cap Unknown Dose PO DAILY [place]-3 Fish Oil/Vitamin (Fish Oil-Cholecalciferol) 1,000-1,000 Mg Cap 1 Cap PO DAILY B-12 (Cyanocobalamin) 1,000 Mcg Subl 1,000 Mcg SL DAILY Vitamin D3 (Cholecalciferol) 1,000 Unit Tab 1,000 Units PO DAILY Calcium 500 +D (Calcium Carbonate-Cholecalciferol) 500-400 Mg-Unit Tab 1 Tab PO DAILY Allergies: Coded Allergies: No Known Allergies (Verified Adverse Reaction, Unknown, 12/13/17) Family History Father with CAD Social History Negative for alcohol, tobacco and illicit drugs Physical Exam Vital Signs Vital Signs Date Time Temp Pulse Resp B/P (MAP) Pulse Ox O2 Delivery O2 Flow Rate FiO2 12/13/17 22:39 99.5 6/19/18 20:50 97 Room Air 12/13/17 20:44 109 16 157/97 (117) 100 Room Air 12/13/17 19:17 100.9 109 16 150/85 (106) 98 Physical Exam GENERAL: male lying in bed SKIN: No rashes, ecchymoses or lesions. Cool and dry. HEAD: Atraumatic. Normocephalic. No temporal or scalp tenderness. EYES: Pupils equal round and reactive. Extraocular motions intact. No scleral icterus. No injection or drainage. ENT: Nose without bleeding, purulent drainage or septal hematoma. Throat without erythema, tonsillar hypertrophy or exudate. Uvula midline. Airway patent. NECK: Trachea midline. No JVD or lymphadenopathy. Supple, nontender, no meningeal signs. CARDIOVASCULAR: Regular rate and rhythm without murmurs, gallops, or rubs. RESPIRATORY: Clear to auscultation. Breath sounds equal bilaterally. No wheezes , rales, or rhonchi. GASTROINTESTINAL: Abdomen soft, non-tender, nondistended. No hepato-splenomegaly , or palpable masses. No guarding. MUSCULOSKELETAL: Extremities without clubbing, cyanosis, or edema. No joint tenderness, effusion, or edema noted. No calf tenderness. NEUROLOGICAL: Awake and alert. Cranial nerves II through XII intact. Motor and sensory grossly within normal limits. Normal speech. Laboratory Laboratory Tests Test 12/13/17 21:00 12/13/17 22:17 White Blood Count 2.4 Red Blood Count 4.02 Hemoglobin 12.7 Hematocrit 37.9 Mean Corpuscular Volume 94.2 Mean Corpuscular Hemoglobin 31.7 Mean Corpuscular Hemoglobin Concent 33.7 Red Cell Distribution Width 16.5 Platelet Count 126 Mean Platelet Volume 7.9 Neutrophils (%) (Auto) 77.7 Lymphocytes (%) (Auto) 11.0 Monocytes (%) (Auto) 10.7 Eosinophils (%) (Auto) 0.2 Basophils (%) (Auto) 0.4 Neutrophils # (Auto) 1.9 Lymphocytes # (Auto) 0.3 Monocytes # (Auto) 0.3 Eosinophils # (Auto) 0.0 Basophils # (Auto) 0.0 CBC Comment DIFF FINAL Differential Comment Prothrombin Time 10.3 Prothromb Time International Ratio 1.0 Activated Partial Thromboplast Time 23.0 Blood Urea Nitrogen 11 Creatinine 0.80 Random Glucose 89 Total Protein 7.0 Albumin 3.6 Calcium Level 8.7 Alkaline Phosphatase 114 Aspartate Amino Transf (AST/SGOT) 126 Alanine Aminotransferase (ALT/SGPT) 73 Total Bilirubin 0.6 Sodium Level 141 Potassium Level 3.5 Chloride Level 102 Carbon Dioxide Level 29.7 Anion Gap 9 Estimat Glomerular Filtration Rate 97 Lactic Acid Level 1.2 Uric Acid 9.5 Phosphorus Level 3.0 Urine Color YELLOW Urine Turbidity CLEAR Urine pH 5.0 Urine Specific [place] 1.009 Urine Protein NEG Urine Glucose (UA) NEG Urine Ketones NEG Urine Occult Blood NEG Urine Nitrite NEG Urine Bilirubin NEG Urine Urobilinogen LESS THAN 2 Urine Leukocyte Esterase NEG Urine WBC 1 Microscopic Urinalysis Comment CATH-CULT NOT IND Date/Time Source Procedure Growth Status 12/13/17 21:00 Blood Peripheral Aerobic Blood Culture Pending Received 12/13/17 21:00 Blood Peripheral Anaerobic Blood Culture Pending Received Result Diagram: 12/13/17209912/13/172099 Caprini VTE Risk Assessment Caprini VTE Risk Assessment: Mod/High Risk (score >= 2) Caprini Risk Assessment Model Point Value = 1 Point Value = 2 Point Value = 3 Point Value = 5 Age 41-60 Minor surgery BMI > 25 kg/m2 Swollen legs Varicose veins or History of unexplained or recurrent spontaneous Oral contraceptives or hormone replacement Sepsis (< 1 month) Serious lung disease, including pneumonia (< 1 month) Abnormal pulmonary function Acute myocardial infarction Congestive heart failure (< 1 month) History of inflammatory bowel disease Medical patient at bed rest Age 61-74 Arthroscopic surgery Major open surgery (> 45 min) Laparoscopic surgery (> 45 min) Malignancy Confined to bed (> 72 hours) Immobilizing plaster cast Central venous access Age >= 75 History of VTE Family history of VTE Factor V Leiden Prothrombin [id number] Lupus anticoagulant Anticardiolipin antibodies Elevated serum homocysteine Heparin-induced thrombocytopenia Other congenital or acquired thrombophilia Stroke (< 1 month) Elective arthroplasty Hip, pelvis, or leg fracture Acute spinal cord injury (< 1 month) Prophylaxis Regimen Total Risk Factor Score Risk Level Prophylaxis Regimen 0-1 Low Early ambulation 2 Moderate Order ONE of the following: *Sequential Compression Device (SCD) *Heparin 5000 units SQ BID 3-4 Higher Order ONE of the following medications: *Heparin 5000 units SQ TID *Enoxaparin/Lovenox 40 mg SQ daily (WT < 150 kg, CrCl > 30 mL/min) *Enoxaparin/Lovenox 30 mg SQ daily (WT < 150 kg, CrCl > 10-29 mL/min) *Enoxaparin/Lovenox 30 mg SQ BID (WT < 150 kg, CrCl > 30 mL/min) AND/OR *Sequential Compression Device (SCD) 5 or more Highest Order ONE of the following medications: *Heparin 5000 units SQ TID (Preferred with Epidurals) *Enoxaparin/Lovenox 40 mg SQ daily (WT < 150 kg, CrCl > 30 mL/min) *Enoxaparin/Lovenox 30 mg SQ daily (WT < 150 kg, CrCl > 10-29 mL/min) *Enoxaparin/Lovenox 30 mg SQ BID (WT < 150 kg, CrCl > 30 mL/min) AND *Sequential Compression Device (SCD) Assessment and Plan Assessment and Plan Assessment/plan: 1. Fever Patient currently undergoing chemotherapy Vancomycin/cefepime Blood cultures pending Chest x-ray negative UA negative Blood cultures pending Medical oncology consulted, appreciate recommendations 2. Muscular degenerative disease Continue follow-up at [facility] healthy diet NS at 100 cc/hour Electrolytes: Monitor and replete as needed Lovenox Physician Certification 2 Midnight Certification Type: Admission for Inpatient Services Order for Inpatient Services The services are ordered in accordance with Medicare regulations or non- Medicare payer requirements, as applicable. In the case of services not specified as inpatient-only, they are appropriately provided as inpatient services in accordance with the 2-midnight benchmark. Estimated LOS (days): 2 2 days is the estimated time the patient will need to remain in the hospital, assuming treatment plan goals are met and no additional complications. Post-Hospital Plan: Not yet determined Joan Martinez MD Dec 13, 2017 23:31
[2017-12-13] MEDS ORDERED: ONDANSETRON ODT 4 MG TAB PO PRN (23:45)
[2017-12-14] VITALS: BP_SYST 150; BP_SYST 155; BP_DIAS 84; BP_DIAS 85; PULSE 102; PULSE 98; RESP 16; RESP 18; TEMP 99.6; O2SAT 96; O2SAT 98
[2017-12-14] MEDS ORDERED: VANCOMYCIN 1,500 MG/NS 500 ML IV ONE ×2
[2017-12-14] MEDS: SODIUM CHLOR 0.9% 1000 ML INJ 1,000 ML IV SCH ×2 (01:24→09:21)
[2017-12-14 04:00] VITALS: BP 155/86; PULSE 121; RESP 18; TEMP 102.9; O2SAT 95
[2017-12-14 07:58] LABS: AUTOMATED NEUTROPHIL # 2.6 TH/MM3 (1.8-7.7); BASOPHIL % 0.3 % (0.0-2.0); HEMATOCRIT 36.1 % (39.0-51.0); HEMOGLOBIN 12.2 GM/DL (13.0-17.0); LYMPHOCYTE # 0.7 TH/MM3 (1.0-4.8); MEAN CELL VOLUME 93.6 FL (80.0-100.0); MEAN CORPUSCULAR HEMOGLOBIN 31.6 PG (27.0-34.0); MEAN CORPUSCULAR HGB CONC 33.7 % (32.0-36.0); MEAN PLATELET VOLUME 7.9 FL (7.0-11.0); MONO % 12.3 % (0.0-8.0); MONOCYTE # 0.5 TH/MM3 (0-0.9); NEUT % 69.4 % (16.0-70.0); PLATELET COUNT 109 TH/MM3 (150-450); RED BLOOD COUNT 3.86 MIL/MM3 (4.50-5.90); RED CELL DISTRIBUTION WIDTH 15.5 % (11.6-17.2); WHITE BLOOD COUNT 3.7 TH/MM3 (4.0-11.0)
[2017-12-14 08:00] VITALS: BP 144/87; PULSE 91; RESP 16; TEMP 98.7; O2SAT 95
[2017-12-14 08:24] LABS: BICARBONATE 28.2 MEQ/L (21.0-32.0); CALCIUM 8.4 MG/DL (8.5-10.1); CREATININE 0.84 MG/DL (0.60-1.30)
[2017-12-14] MEDS: DOCUSATE SODIUM 50 MG/SENNA 8.6 MG TAB PO SCH ×2 (09:00→21:00)
[2017-12-14] MEDS: ENOXAPARIN SODIUM 40 MG/0.4 ML SYRINGE SQ SCH (09:12)
[2017-12-14] MEDS: CEFEPIME INJ 2,000 MG in SODIUM CHLORIDE 0.9% INJ 100 ML IV SCH ×3 (09:12→22:48)
[2017-12-14] MEDS: SODIUM CHLORIDE 0.9% FLUSH 10 ML FLUSH IV FLUSH SCH ×2 (09:12→21:00)
--- NOTE | 2017-12-14 11:06 | HHI.PR ---
Subjective Remarks Patient states that he feels pretty good. No fevers or chills overnight. He states no symptoms of headache, no neck pain, no abdominal pain. No symptoms of cough or dysuria. He states that he has a history of chronic loose stools secondary to history of gastric bypass. Objective Vitals Vital Signs Date Time Temp Pulse Resp B/P (MAP) Pulse Ox O2 Delivery O2 Flow Rate FiO2 12/14/17 08:00 98.7 91 16 144/87 (106) 95 12/14/17 04:00 102.9 121 18 155/86 (109) 95 12/14/17 01:00 12/14/17 00:00 98 16 150/85 (106) 98 Room Air 12/14/17 00:00 99.6 102 18 155/84 (107) 96 12/13/17 23:00 94 16 144/73 (96) 94 Room Air 12/13/17 22:39 99.5 12/13/17 22:00 96 16 146/81 (102) 95 Room Air 12/13/17 21:00 94 16 158/73 (101) 97 Room Air 12/13/17 20:50 97 Room Air 12/13/17 20:44 109 16 157/97 (117) 100 Room Air 12/13/17 19:17 100.9 109 16 150/85 (106) 98 I/O 12/13/17 12/13/17 12/13/17 12/14/17 12/14/17 12/14/17 07:00 15:00 23:00 07:00 15:00 23:00 Intake Total 100 ml 1350 ml Balance 100 ml 1350 ml Intake Oral 350 ml IV Total 100 ml 1000 ml # Voids 10 Result Diagram: 12/14/17 0659 12/14/17 0659 Objective Remarks GENERAL: This is a well-nourished, well-developed patient, in no apparent distress. CARDIOVASCULAR: Regular rate and rhythm without murmurs, gallops, or rubs. RESPIRATORY: Clear to auscultation. Breath sounds equal bilaterally. No wheezes , rales, or rhonchi. GASTROINTESTINAL: Abdomen soft, non-tender, nondistended. Normal active bowel sounds MUSCULOSKELETAL: Extremities without clubbing, cyanosis, or edema. NEURO: Alert & Oriented x4 to person, place, time, situation. Moves all ext x4 A/P Assessment and Plan 1. Fever in a patient with current immunosuppressant on chemotherapy for non- Hodgkin's lymphoma Patient currently undergoing chemotherapy Vancomycin/cefepime IV has been started Blood cultures pending Chest x-ray negative UA negative Medical oncology, Dr. Coburn consulted, appreciate recommendations Consider infectious disease consultation if patient continues to have recurrent fevers. 2. Muscular degenerative disease Continue follow-up at [place] 3. DVT prophylaxis Lovenox Discharge Planning Home when blood cultures are negative and cleared by oncology Sylvie Sarmiento MD Dec 14, 2017 11:06
[2017-12-14] MEDS: VANCOMYCIN 1,500 MG/NS 500 ML IV SCH ×2 (12:56)
[2017-12-14 16:00] VITALS: BP 150/71; PULSE 94; RESP 16; TEMP 99.2; O2SAT 95
--- NOTE | 2017-12-14 18:46 | MB ---
cc: Kaushik Coburn MD DATE: 12/14/2017 REASON FOR CONSULTATION: Consult requested by hospitalist for evaluation and management of fever in a patient who has the treatment for non-Hodgkin's lymphoma. HISTORY OF PRESENT ILLNESS: Zeb is a 67-year-old male. He has multiple relapses of the non-Hodgkin's lymphoma. He has been on chemotherapy with Rituxan, Gemzar and oxaliplatin chemotherapy. He is clinically having a good response. The patient said that he was doing fine up until yesterday, he developed a fever with chills. He had called our service and he was advised to report to the emergency room. The patient came into the emergency room yesterday and his temperature was 100.9. The CBC showed a white count of 3.6, hemoglobin 13, platelet count of 161. The patient had a CBC yesterday, which showed white count of 2.4, hemoglobin 12.7 and platelet count of 126. The absolute neutrophil count is 1.9. The patient is now admitted to the hospital. He is on vancomycin and cefepime. Blood culture and urine cultures have been done. The chest x-ray does not show any pneumonia. I have been asked to see the patient for further evaluation. The patient denies any sore throat. He denies any cough, shortness of breath. He denies any dysuria. He denies any diarrhea. The source of infection is unknown at the present time. The patient has been complaining of weakness, tiredness and fatigue. His fever had resolved since he has been in the hospital, however, earlier in the morning, he had a temperature of 102.9. The rest of the review of systems is negative. PAST MEDICAL HISTORY: Arthritis, diabetes mellitus, gastroesophageal reflux disease, hypercholesterolemia, hypertension, Cheondoism, morbid obesity, status post gastric bypass surgery, colon cancer, status post right hemicolectomy. PAST SURGICAL HISTORY: Cholecystectomy, colon resection, with right hemicolectomy, exploratory laparotomy, gastric bypass surgery, hernia repair, knee surgery, colonoscopy, Infusaport. ALLERGIES: NONE. MEDICATIONS: Tramadol, multivitamin, iron, calcium. He is also on chemotherapy, Rituxan, Gemzar and oxaliplatin. FAMILY HISTORY: The patient's parents have . He has 3 brothers, 1 sister. He has 2 sons, no daughters. One of the brother from AIDS and the other brother has chronic lymphocytic leukemia. SOCIAL HISTORY: The patient is . does not smoke cigarettes. 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 He does not smoke cigarettes, occasionally drinks alcohol. PHYSICAL EXAMINATION: GENERAL: This is a well developed, well nourished male, in no apparent distress. VITAL SIGNS: Temperature 102.9, heart rate is 121, blood pressure is 155/86, O2 saturations are 95%. HEAD, EYES, EARS, NOSE, AND THROAT: Pupils equal, round, reactive to light and accommodation, extraocular movements intact. Anicteric. No oral lesions noted. No thrush noted. NECK: Supple. No JVD. No masses noted. LUNGS: Clear. No wheezing, rhonchi, or rales. HEART: Regular rate and rhythm. No murmur heard. ABDOMEN: Soft and nontender. No hepatosplenomegaly. No abnormal bowel sounds. No guarding or rigidity noted. EXTREMITIES: No pedal edema. No cyanosis, no clubbing. NEUROLOGIC: Awake, alert, oriented x 3. Sensory and motor seem to be intact. SKIN: No bruises or petechiae noted. LYMPH NODES: No cervical, supraclavicular, or axillary lymphadenopathy noted. BACK: There is no spinal tenderness noted. ASSESSMENT: 1. Fever with chills, most likely due to infection, the source of infection is unknown at the present time. 2. Non-Hodgkin's lymphoma with multiple relapses, currently on chemotherapy, Rituxan, Gemzar and oxaliplatin. 3. Mild pancytopenia due to the chemotherapy. PLAN: I have reviewed his available records and I have discussed with the patient regarding the nature of the fever. It appears the patient had some sort of infection, but he does not have any localizing signs of infection. He does not have any symptoms of upper respiratory infection, pneumonia or UTI. Blood cultures and urine cultures have been done, the results are still pending. The chest x-ray does not show any pneumonia. The patient is not neutropenic. His white count yesterday was 2.4, today is 3.7, the absolute neutrophil count was 1.9, today is 2.6. He does not require any Neupogen. The patient is a Cheondoism and he would not accept any blood products. My recommendation is to continue with the present antibiotic with vancomycin and cefepime. We can adjust the antibiotics depending on the culture results. The urinalysis is negative and culture is not indicated. The blood cultures are still pending. Thank you for asking my opinion. MD LAURA Noriega/AUGUSTIN , 05:53 PM , 06:45 PM
[2017-12-14 19:50] VITALS: BP 141/75; PULSE 94; RESP 18; TEMP 98.9; O2SAT 96
[2017-12-15 00:25] VITALS: BP 140/78; PULSE 95; RESP 18; TEMP 99.2; O2SAT 97
[2017-12-15] MEDS: VANCOMYCIN 1,500 MG/NS 500 ML IV SCH ×4 (01:23→14:13)
[2017-12-15] MEDS: SODIUM CHLOR 0.9% 1000 ML INJ 1,000 ML IV SCH ×3 (01:27→20:17)
[2017-12-15] MEDS: CEFEPIME INJ 2,000 MG in SODIUM CHLORIDE 0.9% INJ 100 ML IV SCH ×3 (06:33→21:50)
[2017-12-15 06:42] VITALS: BP 132/68; PULSE 91; RESP 18; TEMP 98.8; O2SAT 96
[2017-12-15 07:49] LABS: CREATININE 0.61 MG/DL (0.60-1.30)
[2017-12-15 08:00] VITALS: BP 136/76; PULSE 92; RESP 18; TEMP 98.4; O2SAT 96
[2017-12-15] MEDS: DOCUSATE SODIUM 50 MG/SENNA 8.6 MG TAB PO SCH ×2 (09:00→20:18)
[2017-12-15] MEDS: ENOXAPARIN SODIUM 40 MG/0.4 ML SYRINGE SQ SCH (09:38)
[2017-12-15] MEDS: SODIUM CHLORIDE 0.9% FLUSH 10 ML FLUSH IV FLUSH SCH ×2 (09:39→20:18)
--- NOTE | 2017-12-15 09:54 | HHI.PR ---
Subjective Remarks No complaints of fevers or chills overnight. Denies any history of cough, dysuria, abdominal pain, nor any headaches nor neck pain. Objective Vitals Vital Signs Date Time Temp Pulse Resp B/P (MAP) Pulse Ox O2 Delivery O2 Flow Rate FiO2 12/15/17 06:42 98.8 91 18 132/68 (89) 96 12/15/17 00:25 99.2 95 18 140/78 (98) 97 12/14/17 19:50 98.9 94 18 141/75 (97) 96 12/14/17 16:00 99.2 94 16 150/71 (97) 95 I/O 12/14/17 12/14/17 12/14/17 12/15/17 12/15/17 12/15/17 07:00 15:00 23:00 07:00 15:00 23:00 Intake Total 1350 ml 360 ml 1975 ml 100 ml Balance 1350 ml 360 ml 1975 ml 100 ml Intake Oral 350 ml 360 ml 360 ml IV Total 1000 ml 1615 ml 100 ml # Voids 10 5 1 # Bowel Movements 1 0 Result Diagram: 12/14/17 0659 12/15/17 0610 Objective Remarks GENERAL: This is a well-nourished, well-developed patient, in no apparent distress. CARDIOVASCULAR: Regular rate and rhythm without murmurs, gallops, or rubs. RESPIRATORY: Clear to auscultation. Breath sounds equal bilaterally. No wheezes , rales, or rhonchi. GASTROINTESTINAL: Abdomen soft, non-tender, nondistended. Normal active bowel sounds MUSCULOSKELETAL: Extremities without clubbing, cyanosis, or edema. NEURO: Alert & Oriented x4 to person, place, time, situation. Moves all ext x4 A/P Assessment and Plan 1. Fever in a patient with current immunosuppressant on chemotherapy for non- Hodgkin's lymphoma Patient currently undergoing and completed chemotherapy Continue with vancomycin/cefepime IV Blood cultures pending, no growth to date Chest x-ray negative UA negative Medical oncology, Dr. Coburn consulted, appreciate recommendations 2. Muscular degenerative disease Continue follow-up at [facility] 3. DVT prophylaxis Lovenox Discharge Planning Discharge to home when blood cultures are negative and if patient remains afebrile and cleared by oncology Sylvie Sarmiento MD Dec 15, 2017 09:54
[2017-12-15] MEDS ORDERED: ACETAMINOPHEN 325 MG TAB PO PRN (11:00)
[2017-12-15 12:00] VITALS: BP 132/83; PULSE 88; RESP 17; TEMP 98.8; O2SAT 98
[2017-12-15] MEDS ORDERED: PHARMACY ORDERED LAB ONE (12:45)
--- NOTE | 2017-12-15 13:07 | PD.ONC.PN ---
Subjective Subjective Remarks Afebrile overnight. Patient feeling good. no complaints. wants to go home, hoping to go home tomorrow. Objective Data Date Time Temp Pulse Resp B/P (MAP) Pulse Ox O2 Delivery O2 Flow Rate FiO2 12/15/17 08:00 98.4 92 18 136/76 (96) 96 12/15/17 06:42 98.8 91 18 132/68 (89) 96 12/15/17 00:25 99.2 95 18 140/78 (98) 97 12/14/17 19:50 98.9 94 18 141/75 (97) 96 12/14/17 16:00 99.2 94 16 150/71 (97) 95 12/15/17 12/15/17 12/15/17 07:00 15:00 23:00 Intake Total 1975 ml 100 ml Balance 1975 ml 100 ml Result Diagram: 12/14/1759 12/15/17 0610 Laboratory Results Laboratory Tests Test 12/15/17 06:10 Blood Urea Nitrogen 11 MG/DL Creatinine 0.61 MG/DL Estimat Glomerular Filtration Rate 132 ML/MIN Culture Results Microbiology Date/Time Source Procedure Growth Status 12/13/17 21:00 Blood Peripheral Aerobic Blood Culture - Preliminary NO GROWTH IN 2 DAYS Resulted 12/13/17 21:00 Blood Peripheral Anaerobic Blood Culture - Preliminary NO GROWTH IN 2 DAYS Resulted 12/13/17 20:55 Blood Peripheral Aerobic Blood Culture - Preliminary NO GROWTH IN 2 DAYS Resulted 12/13/17 20:55 Blood Peripheral Anaerobic Blood Culture - Preliminary NO GROWTH IN 2 DAYS Resulted Administered Medications Medications (Trade) Dose Ordered Sig/Jorge Route PRN Reason Start Time Stop Time Status Last Admin Dose Admin Cefepime HCl 2000 mg/Sodium Chloride 100 ml @ 200 mls/hr Q8H IV 12/14/17 06:00 12/15/17 06:33 Sodium Chloride 1,000 ml @ 100 mls/hr Q10H IV 12/13/17 23:21 12/15/17 01:27 Sodium Chloride (NS Flush) 2 ml BID IV FLUSH 12/14/17 09:00 12/15/17 09:39 Enoxaparin Sodium (Lovenox Inj) 40 mg Q24H SQ 12/14/17 09:00 12/15/17 09:38 Vancomycin HCl 1500 mg/Sodium Chloride 515 ml @ 257.5 mls/ hr Q12H IV 12/14/17 13:00 12/15/17 01:23 Objective Remarks GENERAL: Middle aged male, sitting up in bed in nad. SKIN: Warm and dry. HEAD: Normocephalic. EYES: No injection or drainage. NECK: Supple, trachea midline. CARDIOVASCULAR: Regular rate and rhythm RESPIRATORY: Breath sounds equal bilaterally. No accessory muscle use. GASTROINTESTINAL: Abdomen soft, non-tender, nondistended. EXTREMITIES: No cyanosis NEUROLOGICAL: No obvious focal deficit. Awake, alert, and oriented x3. Assessment/Plan Problem List: (1) Fever ICD Codes: R50.9 - Fever, unspecified Status: Acute Plan: --on Vanco/Cefepime. --BC no growth x 2 days --no localizing symptoms. --CXR--no pneumonia. --last fever 12/14 @ 0400. (2) Non-Hodgkin lymphoma ICD Codes: C85.90 - Non-Hodgkin lymphoma, unspecified, unspecified site Status: Acute Plan: --has had multiple relapses of the non-Hodgkin's lymphoma. --currently on on chemotherapy with Rituxan, Gemzar and oxaliplatin chemotherapy. (3) Pancytopenia due to antineoplastic chemotherapy ICD Codes: D61.810 - Antineoplastic chemotherapy induced pancytopenia; T45.1X5A - Adverse effect of antineoplastic and immunosuppressive drugs, initial encounter Plan: -- is a Rastafarian and he would not accept any blood products. Assessment 67y/o male with non-Hodgkin's lymphoma admitted with fever. h/o Arthritis, diabetes mellitus, gastroesophageal reflux disease, hypercholesterolemia, hypertension, Rastafarian, morbid obesity, status post gastric bypass surgery, colon cancer, status post right hemicolectomy. Problem Qualifiers (1) Fever: Qualified Codes: R50.9 - Fever, unspecified Sonia Yates Dec 15, 2017 13:07 Alfonso Coburn MD Dec 16, 2017 13:09
[2017-12-15] MEDS: traMADol HCL 50 MG TAB PO PRN (14:08)
[2017-12-15 14:25] LABS: AUTOMATED NEUTROPHIL # 2.4 TH/MM3 (1.8-7.7); BASOPHIL % 0.6 % (0.0-2.0); HEMATOCRIT 35.6 % (39.0-51.0); HEMOGLOBIN 12.2 GM/DL (13.0-17.0); LYMPH % 17.3 % (9.0-44.0); LYMPHOCYTE # 0.5 TH/MM3 (1.0-4.8); MEAN CELL VOLUME 93.6 FL (80.0-100.0); MEAN CORPUSCULAR HEMOGLOBIN 31.9 PG (27.0-34.0); MEAN CORPUSCULAR HGB CONC 34.1 % (32.0-36.0); MEAN PLATELET VOLUME 8.5 FL (7.0-11.0); MONO % 2.1 % (0.0-8.0); MONOCYTE # 0.1 TH/MM3 (0-0.9); PLATELET COUNT 82 TH/MM3 (150-450); RED BLOOD COUNT 3.81 MIL/MM3 (4.50-5.90); RED CELL DISTRIBUTION WIDTH 15.2 % (11.6-17.2)
[2017-12-15 14:54] LABS: BICARBONATE 29.1 MEQ/L (21.0-32.0); CREATININE 0.71 MG/DL (0.60-1.30); PHOSPHORUS 2.7 MG/DL (2.5-4.9)
[2017-12-15 15:42] LABS: TOXIC GRANULATION 1+ (NORMAL)
[2017-12-15 16:00] VITALS: BP 140/94; PULSE 92; RESP 18; TEMP 97.4; O2SAT 96
--- NOTE | 2017-12-15 18:51 | EKG ---
Date Performed: 12/13/2017 Time Performed: 20:33:38 PTAGE: 67 years EKG: SINUS TACHYCARDIA WITH FIRST DEGREE AV BLOCK MARKED LEFT AXIS DEVIATION RIGHT BUNDLE BRANCH BLOCK POSSIBLE SEPTAL MYOCARDIAL INFARCTION ABNORMAL ECG PREVIOUS TRACING : 02/17/2017 08.08 When compared to prior EKG,patient is now tachycardic DOCTOR: Ghazala Del Rio Interpretating Date/Time 12/15/2017 18:50:16
[2017-12-15 20:00] VITALS: BP 176/82; PULSE 70; RESP 18; TEMP 98.2; O2SAT 98
[2017-12-16] VITALS: BP 121/77; PULSE 85; RESP 17; TEMP 98.2; O2SAT 96
[2017-12-16] MEDS: VANCOMYCIN 1,500 MG/NS 500 ML IV SCH ×2 (00:56)
[2017-12-16] MEDS: SODIUM CHLOR 0.9% 1000 ML INJ 1,000 ML IV SCH (01:21)
[2017-12-16 04:00] VITALS: BP 133/83; PULSE 97; RESP 20; TEMP 98.5; O2SAT 94
[2017-12-16] MEDS: CEFEPIME INJ 2,000 MG in SODIUM CHLORIDE 0.9% INJ 100 ML IV SCH (06:16)
[2017-12-16] MEDS: traMADol HCL 50 MG TAB PO PRN (06:21)
[2017-12-16 08:00] VITALS: BP 157/75; PULSE 64; RESP 16; TEMP 98.1; O2SAT 97
[2017-12-16 08:35] LABS: CREATININE 0.55 MG/DL (0.60-1.30)
[2017-12-16 08:36] LABS: AUTOMATED NEUTROPHIL # 2.9 TH/MM3 (1.8-7.7); BASOPHIL % 0.7 % (0.0-2.0); EOSINOPHIL # 0.1 TH/MM3 (0-0.4); EOSINOPHIL % 1.7 % (0.0-4.0); HEMATOCRIT 35.3 % (39.0-51.0); HEMOGLOBIN 12.1 GM/DL (13.0-17.0); LYMPH % 12.4 % (9.0-44.0); LYMPHOCYTE # 0.4 TH/MM3 (1.0-4.8); MEAN CELL VOLUME 92.4 FL (80.0-100.0); MEAN CORPUSCULAR HEMOGLOBIN 31.7 PG (27.0-34.0); MEAN CORPUSCULAR HGB CONC 34.2 % (32.0-36.0); MEAN PLATELET VOLUME 8.2 FL (7.0-11.0); MONO % 1.5 % (0.0-8.0); MONOCYTE # 0.1 TH/MM3 (0-0.9); NEUT % 83.7 % (16.0-70.0); PLATELET COUNT 81 TH/MM3 (150-450); RED BLOOD COUNT 3.82 MIL/MM3 (4.50-5.90); RED CELL DISTRIBUTION WIDTH 15.4 % (11.6-17.2); WHITE BLOOD COUNT 3.4 TH/MM3 (4.0-11.0)
[2017-12-16 08:37] LABS: BLOOD UREA NITROGEN 10 MG/DL (7-18)
[2017-12-16] MEDS ORDERED: LEVA750T9 PO (08:39)
--- NOTE | 2017-12-16 08:46 | HHI.DS ---
Discharge Summary Admission Date Dec 13, 2017 at 23:24 Discharge Date: Dec 16, 2017 Admitting Diagnosis fever, stage IV nonhodgkins lymphoma, unknown source (1) Immunosuppressive-induced fever ICD Code: R50.2 - Drug induced fever; T45.1X5A - Adverse effect of antineoplastic and immunosuppressive drugs, initial encounter Diagnosis: Principal (2) Non-Hodgkin lymphoma ICD Code: C85.90 - Non-Hodgkin lymphoma, unspecified, unspecified site Diagnosis: Principal Status: Acute Procedures none Brief History - From Admission 67-year-old male with a past medical history significant for stage IV non- Hodgkin's lymphoma presents the emergency department for the evaluation of a fever. The patient reports that around 5 PM he suddenly had subjective fevers/ chills and his took his temperature. His temperature at home was 101.5. He called his oncologist office who recommended he come to the emergency department for further evaluation. He endorses an accompanying headache. Denies cough or congestion. No dysuria. No chest pain or shortness of breath. No abdominal pain. No nausea/vomiting/diarrhea. No lateralizing signs/ symptoms. CBC/BMP: 12/16/17 0703 12/16/17 0703 Significant Findings Laboratory Tests Test 12/13/17 21:00 12/13/17 22:17 12/14/17 06:59 12/15/17 06:10 White Blood Count 2.4 TH/MM3 (4.0-11.0) 3.7 TH/MM3 (4.0-11.0) Red Blood Count 4.02 MIL/MM3 (4.50-5.90) 3.86 MIL/MM3 (4.50-5.90) Hemoglobin 12.7 GM/DL (13.0-17.0) 12.2 GM/DL (13.0-17.0) Hematocrit 37.9 % (39.0-51.0) 36.1 % (39.0-51.0) Platelet Count 126 TH/MM3 (150-450) 109 TH/MM3 (150-450) Neutrophils (%) (Auto) 77.7 % (16.0-70.0) Monocytes (%) (Auto) 10.7 % (0.0-8.0) 12.3 % (0.0-8.0) Lymphocytes # (Auto) 0.3 TH/MM3 (1.0-4.8) 0.7 TH/MM3 (1.0-4.8) Activated Partial Thromboplast Time 23.0 SEC (24.3-30.1) Aspartate Amino Transf (AST/SGOT) 126 U/L (15-37) Uric Acid 9.5 MG/DL (2.6-7.2) Calcium Level 8.4 MG/DL (8.5-10.1) Test 12/15/17 13:15 12/16/17 07:03 White Blood Count 3.0 TH/MM3 (4.0-11.0) 3.4 TH/MM3 (4.0-11.0) Red Blood Count 3.81 MIL/MM3 (4.50-5.90) 3.82 MIL/MM3 (4.50-5.90) Hemoglobin 12.2 GM/DL (13.0-17.0) 12.1 GM/DL (13.0-17.0) Hematocrit 35.6 % (39.0-51.0) 35.3 % (39.0-51.0) Platelet Count 82 TH/MM3 (150-450) 81 TH/MM3 (150-450) Neutrophils (%) (Auto) 79.0 % (16.0-70.0) 83.7 % (16.0-70.0) Lymphocytes # (Auto) 0.5 TH/MM3 (1.0-4.8) 0.4 TH/MM3 (1.0-4.8) Toxic Granulation 1+ (NORMAL) Platelet Estimate LOW (NORMAL) Random Glucose 155 MG/DL (74-106) Calcium Level 8.0 MG/DL (8.5-10.1) Lactate Dehydrogenase 402 U/L (87-241) 384 U/L (87-241) Vancomycin Level Trough 15.4 MCG/ML (5.0-10.0) Creatinine 0.55 MG/DL (0.60-1.30) Imaging Last Impressions Chest X-Ray 12/13/171999 Signed Impressions: CONCLUSION: 1. No acute cardiopulmonary disease. PE at Discharge GENERAL: This is a well-nourished, well-developed patient, in no apparent distress. CARDIOVASCULAR: Regular rate and rhythm without murmurs, gallops, or rubs. RESPIRATORY: Clear to auscultation. Breath sounds equal bilaterally. No wheezes , rales, or rhonchi. GASTROINTESTINAL: Abdomen soft, non-tender, nondistended. Normal active bowel sounds MUSCULOSKELETAL: Extremities without clubbing, cyanosis, or edema. NEURO: Alert & Oriented x4 to person, place, time, situation. Moves all ext x4 Pt update on day of discharge Patient denies any fever overnight. States that he feels good with no other complaints. Wants to go home. Denies coughing, shortness of breath, dysuria, headache nor neck pain. Hospital Course 67-year-old white male with a history of non-Hodgkin's lymphoma currently on chemotherapy followed by Dr. Coburn oncology hematology was admitted for fever of unknown source due to history of inguinal suppression being on chemotherapy. He was placed on IV cefepime and vancomycin and seen by Dr. Coburn. Blood cultures, urine cultures, chest x-ray all negative during the hospitalization. Patient was not neutropenic during the hospitalization. No recurrent fever was seen 48 hours post discharge. At this time patient has gained maximum benefit from hospitalization ready to be discharged to home Pt Condition on Discharge: Good Discharge Disposition: Discharge Home Discharge Time: <= 30 minutes Discharge Instructions DIET: Follow Instructions for: As Tolerated, No Restrictions Activities you can perform: Regular-No Restrictions Follow up Referrals: Oncology/Hematology - 1 Week with Alfonso Coburn MD PCP Follow-up - 2 Weeks New Medications: Levofloxacin (Levaquin) 750 Mg Tablet 750 MG PO DAILY for Infection, #5 TAB 0 Refills Continued Medications: Calcium Carbonate-Cholecalciferol (Calcium 500 +D) 500-400 Mg-Unit Tab 1 TAB PO DAILY for Calcium Supplement, TAB 0 Refills Cholecalciferol (Vitamin D3) 1,000 Unit Tab 1000 UNITS PO DAILY for Nutritional Supplement, #1 BOTTLE 0 Refills Cyanocobalamin (B-12) 1,000 Mcg Subl 1000 MCG SL DAILY for Nutritional Supplement, TAB.SL 0 Refills Echinacea (Echinacea) 80 Mg Cap Unknown Dose PO DAILY Fish Oil-Cholecalciferol ([place]-3 Fish Oil/Vitamin) 1,000-1,000 Mg Cap 1 CAP PO DAILY for Nutritional Supplement, CAP 0 Refills Multiple Vitamin (Multi-Vitamin Daily) 1 Tab Tab 1 TAB PO DAILY for Nutritional Supplement, TAB 0 Refills Tramadol (Tramadol) 50 Mg Tab 50 MG PO DAILY PRN for PAIN, TAB 0 Refills Sylvie Sarmiento MD Dec 16, 2017 08:46
[2017-12-16] MEDS: ENOXAPARIN SODIUM 40 MG/0.4 ML SYRINGE SQ SCH (08:49)
[2017-12-16] MEDS: SODIUM CHLORIDE 0.9% FLUSH 10 ML FLUSH IV FLUSH SCH (08:53)
[2017-12-16] MEDS: DOCUSATE SODIUM 50 MG/SENNA 8.6 MG TAB PO SCH (08:53)
[2017-12-16] MEDS ORDERED: CYANOCOBALAMIN 1,000 MCG TAB PO SCH (09:00)
[2017-12-16] MEDS ORDERED: CALCIUM/VITAMIN D 250 MG/125 U TAB PO SCH (09:00)
[2017-12-16] MEDS ORDERED: NON-FORMULARY DRUG (Fish Oil-Cholecalciferol (Omega-3 Fish Oil/Vitamin) 1 CAP) PO SCH (09:00)
[2017-12-16] MEDS ORDERED: MULTIVITAMIN TAB PO SCH (09:00)
[2017-12-16] MEDS ORDERED: CHOLECALCIFEROL (VIT D3) 1000 UNIT TAB PO SCH (09:00)
--- NOTE | 2017-12-16 13:08 | PD.ONC.PN ---
Subjective Subjective Remarks no more fever. Feels better wants to go home Objective Data Date Time Temp Pulse Resp B/P (MAP) Pulse Ox O2 Delivery O2 Flow Rate FiO2 12/16/17 08:00 98.1 64 16 157/75 (102) 97 12/16/17 04:00 98.5 97 20 133/83 (100) 94 12/16/17 00:00 98.2 85 17 121/77 (92) 96 12/15/17 20:00 98.2 70 18 176/82 (113) 98 12/15/17 16:00 97.4 92 18 140/94 (109) 96 12/15/17 15:08 18 12/15/17 15:08 18 12/16/17 12/16/17 12/16/17 07:00 15:00 23:00 Intake Total 1135 ml Balance 1135 ml Result Diagram: 12/16/17 0703 12/16/17 0703 Laboratory Results Laboratory Tests Test 12/15/17 13:15 12/16/17 07:03 White Blood Count 3.0 TH/MM3 3.4 TH/MM3 Red Blood Count 3.81 MIL/MM3 3.82 MIL/MM3 Hemoglobin 12.2 GM/DL 12.1 GM/DL Hematocrit 35.6 % 35.3 % Mean Corpuscular Volume 93.6 FL 92.4 FL Mean Corpuscular Hemoglobin 31.9 PG 31.7 PG Mean Corpuscular Hemoglobin Concent 34.1 % 34.2 % Red Cell Distribution Width 15.2 % 15.4 % Platelet Count 82 TH/MM3 81 TH/MM3 Mean Platelet Volume 8.5 FL 8.2 FL Neutrophils (%) (Auto) 79.0 % 83.7 % Lymphocytes (%) (Auto) 17.3 % 12.4 % Monocytes (%) (Auto) 2.1 % 1.5 % Eosinophils (%) (Auto) 1.0 % 1.7 % Basophils (%) (Auto) 0.6 % 0.7 % Neutrophils # (Auto) 2.4 TH/MM3 2.9 TH/MM3 Lymphocytes # (Auto) 0.5 TH/MM3 0.4 TH/MM3 Monocytes # (Auto) 0.1 TH/MM3 0.1 TH/MM3 Eosinophils # (Auto) 0.0 TH/MM3 0.1 TH/MM3 Basophils # (Auto) 0.0 TH/MM3 0.0 TH/MM3 CBC Comment AUTO DIFF AUTO DIFF Differential Comment AUTO DIFF CONFIRMED Toxic Granulation 1+ Platelet Estimate LOW Platelet Morphology Comment NORMAL Blood Urea Nitrogen 11 MG/DL 10 MG/DL Creatinine 0.71 MG/DL 0.55 MG/DL Random Glucose 155 MG/DL Calcium Level 8.0 MG/DL Phosphorus Level 2.7 MG/DL Uric Acid 6.6 MG/DL 6.3 MG/DL Lactate Dehydrogenase 402 U/L 384 U/L Sodium Level 141 MEQ/L Potassium Level 3.6 MEQ/L Chloride Level 103 MEQ/L Carbon Dioxide Level 29.1 MEQ/L Anion Gap 9 MEQ/L Estimat Glomerular Filtration Rate 111 ML/MIN 149 ML/MIN Vancomycin Level Trough 15.4 MCG/ML Culture Results Microbiology Date/Time Source Procedure Growth Status 12/13/17 21:00 Blood Peripheral Aerobic Blood Culture - Preliminary NO GROWTH IN 3 DAYS Resulted 12/13/17 21:00 Blood Peripheral Anaerobic Blood Culture - Preliminary NO GROWTH IN 3 DAYS Resulted 12/13/17 20:55 Blood Peripheral Aerobic Blood Culture - Preliminary NO GROWTH IN 3 DAYS Resulted 12/13/17 20:55 Blood Peripheral Anaerobic Blood Culture - Preliminary NO GROWTH IN 3 DAYS Resulted Objective Remarks GENERAL: Well-nourished, well-developed patient. SKIN: Warm and dry. HEAD: Normocephalic. EYES: No scleral icterus. No injection or drainage. NECK: Supple, trachea midline. No JVD or lymphadenopathy. LYMPHATIC: No adenopathy. CARDIOVASCULAR: Regular rate and rhythm without murmurs. RESPIRATORY: Breath sounds equal bilaterally. No accessory muscle use. GASTROINTESTINAL: Abdomen soft, non-tender, nondistended. EXTREMITIES: No cyanosis, or edema. MUSCULOSKELETAL: Adequate muscle tone. NEUROLOGICAL: No obvious focal deficit. Awake, alert, and oriented x3. PSYCHIATRIC: Appropriate mood and affect; insight and judgment normal. Assessment/Plan Problem List: (1) Fever ICD Codes: R50.9 - Fever, unspecified Status: Acute Plan: --on Vanco/Cefepime. --BC no growth x 2 days --no localizing symptoms. --CXR--no pneumonia. --last fever 12/14 @ 0400. 12/16/17 No more fevers. BC neg Ok to d/c FU as outpt (2) Non-Hodgkin lymphoma ICD Codes: C85.90 - Non-Hodgkin lymphoma, unspecified, unspecified site Status: Acute Plan: --has had multiple relapses of the non-Hodgkin's lymphoma. --currently on on chemotherapy with Rituxan, Gemzar and oxaliplatin chemotherapy. (3) Pancytopenia due to antineoplastic chemotherapy ICD Codes: D61.810 - Antineoplastic chemotherapy induced pancytopenia; T45.1X5A - Adverse effect of antineoplastic and immunosuppressive drugs, initial encounter Plan: -- is a Restoration and he would not accept any blood products. Assessment 67y/o male with non-Hodgkin's lymphoma admitted with fever. h/o Arthritis, diabetes mellitus, gastroesophageal reflux disease, hypercholesterolemia, hypertension, Restoration, morbid obesity, status post gastric bypass surgery, colon cancer, status post right hemicolectomy. Problem Qualifiers (1) Fever: Qualified Codes: R50.9 - Fever, unspecified Sorathia,Teresa Zhang MD Dec 16, 2017 13:08
[2017-12-16 13:13] LABS: OVALOCYTES 1+ (NORMAL); TOXIC GRANULATION 1+ (NORMAL)
[2017-12-19] MEDS ORDERED: PHARMACY ORDERED LAB ONE (12:45)
== END 2017-12-16 10:34 | disposition home or self-care (01) | DRG 864 ==
LOC: NEPC 18:59 → NEDA 22:49 → OBSVTOIN 23:24 → N06B 12-14 01:14
PROVIDERS: ADMIT Family Medicine; ATTEND Family Medicine
DX: R50.2 Drug induced fever (principal); D61.810 Antineoplastic chemotherapy induced pancytopenia; G71.0 Muscular dystrophy; C83.38 Diffuse large B-cell lymphoma, lymph nodes of multiple sites; R65.10 Systemic inflammatory response syndrome (SIRS) of non-infectious origin without acute organ dysfunction; T45.1X5A Adverse effect of antineoplastic and immunosuppressive drugs, initial encounter; K21.9 Gastro-esophageal reflux disease without esophagitis; I10 Essential (primary) hypertension; E78.5 Hyperlipidemia, unspecified; E11.9 Type 2 diabetes mellitus without complications; I45.10 Unspecified right bundle-branch block; M19.90 Unspecified osteoarthritis, unspecified site; F32.9 Major depressive disorder, single episode, unspecified; Z83.0 Family history of human immunodeficiency virus [HIV] disease; Z80.6 Family history of leukemia; Z92.3 Personal history of irradiation; Z92.21 Personal history of antineoplastic chemotherapy; Z98.84 Bariatric surgery status
CPT/HCPCS: 71045; 80048; 80053; 80202; 81001; 82565; 83605; 83615; 84100; 84520; 84550; 85025; 85610; 85730; 87040; 93005; 96365; J0692; J1650; J3370; J7030; J7040

== ENCOUNTER 2018-01-23 10:00 | Inpatient (IN) ==
[2018-01-23 11:36] LABS: Baso % (Auto) 0.5 % (0.0-2.0); Eos % (Auto) 0.7 % (0.0-4.0); Hematocrit 42.6 % (39.0-51.0); Hemoglobin 14.3 gm/dL (13.0-17.0); Lymph # (Auto) 0.9 th/mm3 (1.0-4.8); Lymph % (Auto) 16.3 % (9.0-44.0); Mean Corpuscular HGB Conc 33.5 % (32.0-36.0); Mean Corpuscular Hemoglobin 31.2 pg (27.0-34.0); Mean Corpuscular Volume 93.1 fL (80.0-100.0); Mean Platelet Volume 8.4 fL (7.0-11.0); Mono # (Auto) 0.5 th/mm3 (0.0-0.9); Mono % (Auto) 8.7 % (0.0-8.0); Neut % (Auto) 73.8 % (16.0-70.0); Platelet Count 79 th/mm3 (150-450); Red Blood Count 4.58 mil/mm3 (4.50-5.90); White Blood Count 5.4 th/mm3 (4.0-11.0)
--- NOTE | 2018-01-23 11:44 | ED ---
HPI General Chief Complaint: Shortness of Breath/Dyspnea Stated Complaint: SOB Time Seen by Provider: 01/23/18 10:45 Source: patient and family Mode of arrival: ambulatory Limitations: no limitations History of Present Illness 67-year-old male the presents to the ED for evaluation of shortness of breath and orthopnea. Per patient she has had this for about 3 or 4 weeks. Per patient about 2 weeks ago she started chemotherapy orally. His been taking the oral chemotherapy secondary to non-Hodgkin's lymphoma. Per patient he was made aware that the side effects of the chemo can cause some shortness of breath. Per patient shortness of breath has worsened. Per patient before he had the chemotherapy he had some congestion and some shortness of breath with exertion but not as severe as now. Per patient the symptoms got worse which is per prompted evaluation today. He states having a pressure on his chest especially when he lays down flat. Gets worse when he ambulates. No history of heart disease or CHF. States having some congestion. Cough. No fevers chills or sweats. No diarrhea. No other medications. Follows with oncologist Dr. Coburn. Related Data Home Medications Medication Instructions Recorded Confirmed ibrutinib [Imbruvica] 560 mg PO DAILY 01/23/18 01/23/18 Allergies Allergy/AdvReac Type Severity Reaction Status Date / Time No Known Allergies Allergy Verified 01/23/18 10:25 Review of Systems ROS Unobtainable All other systems reviewed negative except as stated in HPI [facility] Medical History Medical History Cancer of neck (Acute) Non-Hodgkin lymphoma (Acute) Surgical History Surgical History History of cholecystectomy (Acute) History of colon resection (Acute) Hx of gastric bypass (Acute) Family History Family History Mother Family history of acute myocardial infarction Family history of breast cancer Brother Family history of cancer Social History Social History Substance History: No History of Abuse Smoking Status: Never smoker How Often Do You Have a Drink Containing Alcohol: Monthly or less Recent Travel in [facility] within the Last 8 Weeks: No Recent Out of Country Travel within the Last 8 Weeks: No Immunization History Tetanus Immunization: Unsure Hx Influenza Vaccine This Season: Yes Exam Narrative Exam Narrative: GENERAL: Well-appearing SKIN: Focused skin assessment warm/dry. HEAD: Atraumatic. Normocephalic. EYES: Pupils equal and round. No scleral icterus. No injection or drainage. ENT: No nasal bleeding or discharge. Mucous membranes pink and moist. NECK: Trachea midline. No JVD. CARDIOVASCULAR: Regular rate and rhythm. No murmur appreciated. RESPIRATORY: No accessory muscle use. Rales heard in the lower lung reynaga. Breath sounds equal bilaterally. GASTROINTESTINAL: Abdomen soft, non-tender, nondistended. Hepatic and splenic margins not palpable. MUSCULOSKELETAL: No obvious deformities. No clubbing. No cyanosis. No edema. Full range of motion of the upper and lower extremities bilaterally. 2+ pulses bilaterally. NEUROLOGICAL: Awake and alert. No obvious cranial nerve deficits. Motor grossly within normal limits. Normal speech. PSYCHIATRIC: Appropriate mood and affect; insight and judgment normal. Course Initial Documented Vital Signs Temperature 97.5 F L 01/23/18 10:07 Pulse Rate 85 01/23/18 10:07 Respiratory Rate 16 01/23/18 10:07 Blood Pressure 147/89 H 01/23/18 10:07 Pulse Oximetry 99 01/23/18 10:07 Last Documented Vital Signs Temperature 97.5 F L 01/23/18 10:07 Pulse Rate 97 H 01/23/18 14:12 Respiratory Rate 19 01/23/18 14:12 Blood Pressure 153/99 H 01/23/18 14:12 Pulse Oximetry 92 L 01/23/18 14:12 Medical Decision Making MARITZA Attestation MARITZA supervised visit: Yes Attestation: I, Dr. Rizvi, have reviewed the advance practice practitioner's documentation and am in agreement, met with the patient face to face, made the diagnosis, and the medical decision making was done by me. *My assessment and Findings: Bilateral pleural effusions with a history of non- Hodgkin's lymphoma. Admit to resident service with probable thoracentesis. MDM Narrative Medical decision making narrative: 67-year-old male the presents to the ED for evaluation of shortness of breath with exertion and orthopnea. Patient was properly examined and was found to have signs and symptoms of unclear etiology. Labs and imaging order. Labs and imaging showed bilateral pleural effusions. Appears that patient might have CHF, no history of this in the past. Could be related to chemo side effect. Started on lasix, recommendation is to admit for further evaluation. Case discussed with my attending Dr Rizvi who agrees with this. Case discussed with family and patient who are in agreement. Residents agreed to admission. Differential Diagnosis Differential Diagnosis: Shortness of breath with exertion versus CHF versus medication side effect versus dyspnea versus pneumonia Medical Records Medical records reviewed: Yes I reviewed the patient's medical records. Lab Data Lab results reviewed: Yes I reviewed the patient's lab results. Lab results narrative: Troponin of 0.04 CK within normal limits. BNP in the 600s Result diagrams: 01/23/18 11:25 01/23/18 11:25 Lab Results 01/23/18 01/23/18 01/23/18 Range/Units 11:25 11:25 11:25 WBC 5.4 (4.0-11.0) th/mm3 RBC 4.58 (4.50-5.90) mil/mm3 Hgb 14.3 (13.0-17.0) gm/dL Hct 42.6 (39.0-51.0) % MCV 93.1 (80.0-100.0) fL MCH 31.2 (27.0-34.0) pg MCHC 33.5 (32.0-36.0) % RDW 15.0 (11.6-17.2) % Plt Count 79 L (150-450) th/mm3 MPV 8.4 (7.0-11.0) fL Prelim Diff (Auto) Slide review pending Neut % (Auto) 73.8 H (16.0-70.0) % Lymph % (Auto) 16.3 (9.0-44.0) % Jay % (Auto) 8.7 H (0.0-8.0) % Eos % (Auto) 0.7 (0.0-4.0) % Baso % (Auto) 0.5 (0.0-2.0) % Neut # (Auto) 4.0 (1.8-7.7) th/mm3 Lymph # (Auto) 0.9 L (1.0-4.8) th/mm3 Jay # (Auto) 0.5 (0.0-0.9) th/mm3 Eos # (Auto) 0.0 (0.0-0.4) th/mm3 Baso # (Auto) 0.0 (0.0-0.2) th/mm3 WBC Differential . Diff Scan Auto diff confirmed Differential Comment . PT 10.5 (9.8-11.6) sec INR 1.0 Ratio APTT 24.1 L (24.3-30.1) sec D-Dimer Quant (PE/DVT) 0.62 H (0.00-0.50) mg/L FEU Sodium 141 (136-145) meq/L Potassium 4.1 (3.5-5.1) meq/L Chloride 104 (98-107) meq/L Carbon Dioxide 30.0 (21.0-32.0) meq/L Anion Gap 7 (5-15) meq/L BUN 16 (7-18) mg/dL Creatinine 1.01 (0.60-1.30) mg/dL Estimated GFR 74 L (>89) mL/min Random Glucose 150 H (74-106) mg/dL Calcium 9.1 (8.5-10.1) mg/dL Total Bilirubin 0.7 (0.2-1.0) mg/dL AST 26 (15-37) U/L ALT 23 (12-78) U/L Alkaline Phosphatase 116 (45-117) U/L Troponin I 0.04 (0.02-0.05) ng/mL B-Natriuretic Peptide (0-100) pg/mL Total Protein 6.8 (6.4-8.2) g/dL Albumin 3.6 (3.4-5.0) g/dL 01/23/18 Range/Units 11:25 WBC (4.0-11.0) th/mm3 RBC (4.50-5.90) mil/mm3 Hgb (13.0-17.0) gm/dL Hct (39.0-51.0) % MCV (80.0-100.0) fL MCH (27.0-34.0) pg MCHC (32.0-36.0) % RDW (11.6-17.2) % Plt Count (150-450) th/mm3 MPV (7.0-11.0) fL Prelim Diff (Auto) Neut % (Auto) (16.0-70.0) % Lymph % (Auto) (9.0-44.0) % Jay % (Auto) (0.0-8.0) % Eos % (Auto) (0.0-4.0) % Baso % (Auto) (0.0-2.0) % Neut # (Auto) (1.8-7.7) th/mm3 Lymph # (Auto) (1.0-4.8) th/mm3 Jay # (Auto) (0.0-0.9) th/mm3 Eos # (Auto) (0.0-0.4) th/mm3 Baso # (Auto) (0.0-0.2) th/mm3 WBC Differential Diff Scan Differential Comment PT (9.8-11.6) sec INR Ratio APTT (24.3-30.1) sec D-Dimer Quant (PE/DVT) (0.00-0.50) mg/L FEU Sodium (136-145) meq/L Potassium (3.5-5.1) meq/L Chloride (98-107) meq/L Carbon Dioxide (21.0-32.0) meq/L Anion Gap (5-15) meq/L BUN (7-18) mg/dL Creatinine (0.60-1.30) mg/dL Estimated GFR (>89) mL/min Random Glucose (74-106) mg/dL Calcium (8.5-10.1) mg/dL Total Bilirubin (0.2-1.0) mg/dL AST (15-37) U/L ALT (12-78) U/L Alkaline Phosphatase (45-117) U/L Troponin I (0.02-0.05) ng/mL B-Natriuretic Peptide 680 H (0-100) pg/mL Total Protein (6.4-8.2) g/dL Albumin (3.4-5.0) g/dL Imaging Data Radiologist's impression: Chest X-Ray 01/23/18 11:20 CONCLUSION: Mild basilar atelectasis left lung base. Chest CTA 01/23/18 12:09 CONCLUSION: 1. No evidence for pulmonary embolism. 2. Subcutaneous metastatic nodules are identified as above. 3. Large bilateral pleural effusions. See above. ECG Data Attestation: I personally reviewed and interpreted this ECG as follows: Interpretation: EKG shows sinus rhythm with no sign of acute ischemia and arrhythmia read by me and attending. No sign of ST elevation. Slight bradycardia noted. Discharge Plan Discharge Disposition Patient Disposition: 30 Still Patient Discharge Details Diagnosis: CHF (congestive heart failure), Pleural effusion Physicians Team ED Provider: Timothy Rizvi ED Midlevel Provider: Ronald Cavazos Primary Care Provider: Álvaro Henson Attending Provider: Jerardo Herr Other Providers: Lizabeth Coburn Arjun Status ED Status: Admitted Patient
[2018-01-23 11:56] LABS: Albumin 3.6 g/dL (3.4-5.0); Anion Gap 7 meq/L (5-15); Aspartate Aminotransferase 26 U/L (15-37); Blood Urea Nitrogen 16 mg/dL (7-18); Calcium 9.1 mg/dL (8.5-10.1); Chloride 104 meq/L (98-107); Glomerular Filtration Rate 74 mL/min (>89); Glucose,Random 150 mg/dL (74-106); Potassium 4.1 meq/L (3.5-5.1); Sodium 141 meq/L (136-145)
[2018-01-23 12:00] LABS: Activated Partial Thrombo Time 24.1 sec (24.3-30.1); Prothrombin Time 10.5 sec (9.8-11.6)
[2018-01-23 12:01] LABS: Alanine Aminotransferase 23 U/L (12-78); Alkaline Phosphatase 116 U/L (45-117); Total Protein 6.8 g/dL (6.4-8.2); Troponin I 0.04 ng/mL (0.02-0.05)
[2018-01-23 12:04] LABS: D-Dimer 0.62 mg/L FEU (0.00-0.50)
--- NOTE | 2018-01-23 12:13 | XR ---
EXAM DATE: 01/23/2018 12:03 PM EDT AGE/SEX: 67 years / Male INDICATIONS: . Congestion. CLINICAL DATA: This is the patient's initial encounter. Patient reports that signs and symptoms have been present for 1 week and indicates a pain score of 0/10. MEDICAL/SURGICAL HISTORY: . Non Hodgkin's lymphoma . has a port for chemotherapy COMPARISON: [facility] [place], CHEST SINGLE AP, 12/13/2017. . FINDINGS: Left subclavian central venous catheter tip overlies the SVC. Lung volumes are diminished. There is c ardiomegaly and minimal atelectasis at the left base. CONCLUSION: Mild basilar atelectasis left lung base. Electronically signed by: Shade Watson MD 01/23/2018 12:12 PM EDT
--- NOTE | 2018-01-23 13:08 | CT ---
EXAM DATE: 01/23/2018 1:02 PM EDT AGE/SEX: 67 years / Male INDICATIONS: Short of breath, chest tightness. CLINICAL DATA: This is the patient's initial encounter. Patient reports that signs and symptoms have been present for 1 week and indicates a pain score of 2/10. MEDICAL/SURGICAL HISTORY: . Non-Hodgkin's lymphoma Cholecystectomy. Gastric bypass. colon resecti on RADIATION DOSE: 10.80 CTDI (mGy) COMPARISON: [facility], CHEST 2V PA&LAT, 01/23/2018. [facility], PET/CT HEAD/NECK, 01/02/2018. . TECHNIQUE: Volumetric scanning was performed using a multi-row detector CT scanner during bolus infu priyanka of 75 ml Omnipaque 350 (iohexol) nonionic water-soluble contrast as a single exam dose. The palmer a was post processed with a variety of visualization algorithms including full volume maximum intensi ty projection and sliding thin slab reformation. Using automated exposure control and adjustment of the mA and/or kV according to patient size, radiation dose was kept as low as reasonably achievable t o obtain optimal diagnostic quality images. DICOM format image data is available electronically for review and comparison. FINDINGS: Left sided portacatheter is present and the tip terminates in the left brachiocephalic vein. There ar e large bilateral pleural effusions identified. Associated basilar atelectatic changes are seen. Athe rosclerotic calcification of the aorta is noted. No pathologically enlarged lymph nodes are present. Coronary artery calcification is noted. There is a soft tissue mass in the left chest subcutaneous fa t measuring 1.6 x 1.4 cm in transverse and AP dimension. There is also a subcutaneous nodule measurin g 7.4 mm on image 62 in the right chest. As a soft tissue mass measuring 3.1 cm posterior to the righ t 10th posterior rib. There is also a subcutaneous nodule adjacent to the 12th spinous process on the left. CONCLUSION: 1. No evidence for pulmonary embolism. 2. Subcutaneous metastatic nodules are identified as above. 3. Large bilateral pleural effusions. Electronically signed by: Shade Watson MD 01/23/2018 1:06 PM EDT
--- NOTE | 2018-01-23 14:06 | P.HPFP ---
History of Present Illness Primary Care Physician: Álvaro Henson MD History of Present Illness: 67 year old male with PMH of non-Hodgkin's lymphoma currently on chemo (started last Tuesday) presents to the ED due to shortness of breath. This started a week ago when he started the chemotherapy pills. It's gotten progressively worse to the point where he cant breathe at night when laying flat. It feels better when he sits up but today he's noticed the shortness of breath to be present while sitting up. Sleeping with his head elevated helps and laying flat makes the shortness of breath worse. He has also developed an associated cough, but denies any productive sputum. He has tried OTC Mucinex which helped the first day but now is not helping. He had associated pain around the RUQ when he coughs. He has been under chemotherapy treatment since 2004 due to multiple types of cancers but this is the first time he had symptoms like this affiliated with chemo pills. This is his first time doing chemotherapy pills. He had to stop the other chemo method due to low platelet count. Denies any sick contacts. Oncology: Dr. Marie - Diagnosis (1) Non Hodgkin's lymphoma (2) Shortness of breath (3) Elevated brain natriuretic peptide (BNP) level (4) Elevated glucose (5) Nutrition, metabolism, and development symptoms (6) DVT prophylaxis Review of Systems Constitutional: Reports night sweats Cardiovascular: Denies chest pain, Denies rapid, pounding, or irregular heartbeat Respiratory: Reports cough, Reports shortness of breath, Denies change in phlegm color, Denies coughing up blood, Denies excessive phlegm production Gastrointestinal: Denies abdominal pain, Denies black, tarry stools, Denies vomiting PMFSH - History History Provided By: Patient - Medical History Medical History: Medical History (Last Updated 01/23/18 @ 14:05 by Georgie Marx MD, R1) Cancer of neck Non-Hodgkin lymphoma - Surgical History Surgical History: Surgical History (Last Reviewed 01/23/18 @ 14:04 by Georgie Marx MD, R1) History of cholecystectomy History of colon resection Hx of gastric bypass - Family History Family History: Family History (Last Updated 01/23/18 @ 14:05 by Georgie Marx MD, R1) Mother Family history of acute myocardial infarction Family history of breast cancer Brother Family history of cancer - Tobacco History Smoking Status: Never smoker - Alcohol History How Often Do You Have a Drink Containing Alcohol: Monthly or less - Substance Use History Substance History: No History of Abuse - Travel History Recent Travel in the [place] Within the Last 8 Weeks: No Recent Travel Out of the Country Within the Last 8 Weeks: No - Immunization History Tetanus Immunization: Unsure Hx Influenza Vaccine This Season: Yes Medications and Allergies Allergies Allergy/AdvReac Type Severity Reaction Status Date / Time No Known Allergies Allergy Verified 01/23/18 10:25 Home Medications Medication Instructions Recorded Confirmed Type ibrutinib [Imbruvica] 560 mg PO DAILY 01/23/18 01/23/18 History Exam Vital signs: Vital Signs 01/23/18 10:07 01/23/18 10:12 01/23/18 11:20 Temperature 97.5 F L Pulse Rate 85 82 Respiratory Rate 16 16 Blood Pressure 147/89 H 154/90 H Pulse Oximetry 99 97 96 Intake & Output 01/22/18 01/23/18 01/23/18 18:59 06:59 18:59 Weight 86.183 kg - Routine HEENT Exam Head: Present: normocephalic, atraumatic - Routine Respiratory Exam Present: crackles, diminished air movement Comments: Appreciated in the lower bases bilaterally. - Routine Cardiovascular Exam Present: RRR, S1, S2 - Routine Abdominal Exam Present: soft, normoactive bowel sounds Results - Labs Result diagrams: 01/23/18 11:25 01/23/18 11:25 Abnormal lab results 01/23/18 01/23/18 01/23/18 Range/Units 11:25 11:25 11:25 Plt Count 79 L (150-450) th/mm3 Neut % (Auto) 73.8 H (16.0-70.0) % [place] % (Auto) 8.7 H (0.0-8.0) % Lymph # (Auto) 0.9 L (1.0-4.8) th/mm3 APTT 24.1 L (24.3-30.1) sec D-Dimer Quant (PE/DVT) 0.62 H (0.00-0.50) mg/L FEU Estimated GFR 74 L (>89) mL/min Random Glucose 150 H (74-106) mg/dL B-Natriuretic Peptide (0-100) pg/mL 01/23/18 Range/Units 11:25 Plt Count (150-450) th/mm3 Neut % (Auto) (16.0-70.0) % [place] % (Auto) (0.0-8.0) % Lymph # (Auto) (1.0-4.8) th/mm3 APTT (24.3-30.1) sec D-Dimer Quant (PE/DVT) (0.00-0.50) mg/L FEU Estimated GFR (>89) mL/min Random Glucose (74-106) mg/dL B-Natriuretic Peptide 680 H (0-100) pg/mL Short CBC 01/23/18 Range/Units 11:25 WBC 5.4 (4.0-11.0) th/mm3 Hgb 14.3 (13.0-17.0) gm/dL Hct 42.6 (39.0-51.0) % Plt Count 79 L (150-450) th/mm3 BMP 01/23/18 11:25 Sodium 141 Potassium 4.1 Chloride 104 Carbon Dioxide 30.0 BUN 16 Creatinine 1.01 Calcium 9.1 Cardiac Enzymes 01/23/18 Range/Units 11:25 Troponin I 0.04 (0.02-0.05) ng/mL Liver Function 01/23/18 Range/Units 11:25 Total Bilirubin 0.7 (0.2-1.0) mg/dL AST 26 (15-37) U/L ALT 23 (12-78) U/L Alkaline Phosphatase 116 (45-117) U/L Albumin 3.6 (3.4-5.0) g/dL - Imaging Impressions Chest X-Ray 01/23/18 11:20 CONCLUSION: Mild basilar atelectasis left lung base. Chest CTA 01/23/18 12:09 CONCLUSION: 1. No evidence for pulmonary embolism. 2. Subcutaneous metastatic nodules are identified as above. 3. Large bilateral pleural effusions. Caprini VTE Risk Assessment Caprini VTE Risk Assessment: Moderate/High Risk (score >= 2) Caprini Risk Assessment Model: Point Value = 1 Point Value = 2 Point Value = 3 Point Value = 5 Age 41-60 Minor surgery BMI > 25 kg/m2 Swollen legs Varicose veins or History of unexplained or recurrent spontaneous Oral contraceptives or hormone replacement Sepsis (< 1 month) Serious lung disease, including pneumonia (< 1 month) Abnormal pulmonary function Acute myocardial infarction Congestive heart failure (< 1 month) History of inflammatory bowel disease Medical patient at bed rest Age 61-74 Arthroscopic surgery Major open surgery (> 45 min) Laparoscopic surgery (> 45 min) Malignancy Confined to bed (> 72 hours) Immobilizing plaster cast Central venous access Age >= 75 History of VTE Family history of VTE Factor V Leiden Prothrombin [id number] Lupus anticoagulant Anticardiolipin antibodies Elevated serum homocysteine Heparin-induced thrombocytopenia Other congenital or acquired thrombophilia Stroke (< 1 month) Elective arthroplasty Hip, pelvis, or leg fracture Acute spinal cord injury (< 1 month) Prophylaxis Regimen: Total Risk Factor Score Risk Level Prophylaxis Regimen 0-1 Low Early ambulation 2 Moderate Order ONE of the following: *Sequential Compression Device (SCD) *Heparin 5000 units SQ BID 3-4 Higher Order ONE of the following medications: *Heparin 5000 units SQ TID *Enoxaparin/Lovenox 40 mg SQ daily (WT < 150 kg, CrCl > 30 mL/min) *Enoxaparin/Lovenox 30 mg SQ daily (WT < 150 kg, CrCl > 10-29 mL/min) *Enoxaparin/Lovenox 30 mg SQ BID (WT < 150 kg, CrCl > 30 mL/min) AND/OR *Sequential Compression Device (SCD) 5 or more Highest Order ONE of the following medications: *Heparin 5000 units SQ TID (Preferred with Epidurals) *Enoxaparin/Lovenox 40 mg SQ daily (WT < 150 kg, CrCl > 30 mL/min) *Enoxaparin/Lovenox 30 mg SQ daily (WT < 150 kg, CrCl > 10-29 mL/min) *Enoxaparin/Lovenox 30 mg SQ BID (WT < 150 kg, CrCl > 30 mL/min) AND *Sequential Compression Device (SCD) Assessment and Plan - Assessment (1) Non Hodgkin's lymphoma Code(s): C85.90 - Non-Hodgkin lymphoma, unspecified, unspecified site Status: Acute Plan: Currently undergoing chemotherapy for non-Hodgkin's lymphoma. Concerns for neutropenia/infection considering on chemotherapy. White blood cell count currently stable with high neutrophil predominant. Considering previous labs, this seems to be baseline. No thrombocytopenia. Will continue to monitor CBC in a.m. Hold chemotherapy drugs for now. Hypercoagulable state. Continue to monitor PT/INR. SCDs only. Will consult Oncology, appreciate recommendations. (2) Shortness of breath Code(s): R06.02 - Shortness of breath Status: Acute Plan: Shortness of breath with associated orthopnea and nonproductive cough for 1 weeks status post start of new chemotherapy pills. Crackles heard at the lung bases bilaterally. Differential Dx: Pneumonia vs PE vs pulmonary effusion vs CHF CXRay: .Mild basilar atelectasis left lung base. Cardiomegaly. Chest CTA: No evidence for pulmonary embolism. Subcutaneous metastatic nodules are identified as above. Large bilateral pleural effusions EKG: Left atrial enlargement, right bundle branch block. First-degree AV block. Echocardiogram ordered. Follow-up. Respiratory panel, strep pneumo antigen, Legionella antigen, influenza antigen ordered. Follow-up. Blood pressures with systolics in the 150s since admission. Vasotec 1.25 mg q6 ordered. Continue to monitor vitals q4. Start on furosemide 40 mg IV daily. Ultrasound-guided thoracentesis ordered to evaluate nature of effusion. Continue to monitor I&O's. Cardiology consulted, appreciate recommendations. Albuterol and DuoNeb added as needed for shortness of breath. (3) Elevated brain natriuretic peptide (BNP) level Code(s): R79.89 - Other specified abnormal findings of blood chemistry Status : Acute Plan: DDx: CHF vs Renal Failure CMP shows normal creatinine and BUN. CXRay: .Mild basilar atelectasis left lung base. Cardiomegaly. EKG: Left atrial enlargement, right bundle branch block. First-degree AV block. Echocardiogram ordered. Follow-up. (4) Elevated glucose Code(s): R73.09 - Other abnormal glucose Status: Acute Plan: Patient had a history of diabetes, but resolved status post gastric bypass surgery. One episode of elevated glucose in the ED. asymptomatic. Will continue to monitor. (5) Nutrition, metabolism, and development symptoms Code(s): R63.8 - Other symptoms and signs concerning food and fluid intake Status: Acute Plan: Fluids: None considering volume overload status. Electrolytes: Monitor and replete as needed. Currently stable. Nutrition:Currently n.p.o. in anticipation of procedure.. (6) DVT prophylaxis Status: Acute Plan: SCDs only. - Assessment and Plan 67-year-old male currently undergoing chemotherapy for non-Hodgkin's lymphoma, presents with shortness of breath with associated orthopnea and nonproductive cough for 1 weeks status post start of new chemotherapy drugs Discharge Planning: Plan for discharge status post diagnostic evaluation of pleural effusion and clinical improvement of shortness of breath.
[2018-01-23] MEDS ORDERED: Acetaminophen 325 MG Tablet PO PRN (14:22)
[2018-01-23] MEDS ORDERED: Bisacodyl 10 MG Supp RECTAL PRN (14:22)
[2018-01-23 15:48] LABS: Bilirubin,Urine Negative (Negative); Clarity,Urine Clear (Clear); Color,Urine Colorless (Yellw/Straw); Glucose,Urine (UA) Negative (Negative); Hyaline Casts,Urine 1 /lpf (0-3); Leukocyte Esterase,Urine Negative (Negative); Nitrite,Urine Negative (Negative); Specific Gravity,Urine 1.006 (1.002-1.035)
[2018-01-23] MEDS: Sod Chloride 0.9% Inj 1,000 ML IV.CONT SCH (16:04)
--- NOTE | 2018-01-23 17:55 | MB ---
cc: Steve Zepeda MD DATE: 01/23/2018 REASON FOR CONSULTATION: Possible congestive heart failure. HISTORY OF PRESENT ILLNESS: The patient is a 67-year-old white male with a history of multiple medical problems including hypertension, paroxysmal atrial fibrillation, colon cancer, chronic recurrent non-Hodgkin lymphoma, status post chemotherapy, who presented to the hospital with a 1-week history of increasing shortness of breath. The patient states minimal exertion precipitates fairly severe shortness of breath. In the last few nights, he has also had orthopnea, having to sit up to catch his breath. He denies paroxysmal nocturnal dyspnea and chest pain except with coughing. In the last several days, he has had an overall nonproductive cough without fevers or hemoptysis. He also denies pedal edema, palpitations, syncope or near syncope. The patient does report occasional mild lightheadedness recently. PAST MEDICAL HISTORY: 1. Non-Hodgkin lymphoma with multiple recurrences, status post chemotherapy. It was initially diagnosed in 2004. 2. Hypertension. 3. Gastritis. 4. Previous diabetes prior to his gastric bypass. 5. Hyperlipidemia. 6. Paroxysmal atrial fibrillation diagnosed 02/2008. 7. 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 8. Colon cancer, status post ascending colectomy with ileotransverse anastomosis. PAST SURGICAL HISTORY: 1. Cholecystectomy. 2. Right shoulder arthroscopy. 3. Right knee arthroscopy. 4. Tonsillectomy. 5. Right inguinal hernia repair. 6. Left thigh lipoma resection. 7. Gastric bypass. 8. Ascending colectomy with ileotransverse anastomosis. CARDIAC MEDICATIONS AT HOME: None. MEDICATIONS: Here in the hospital, he has been placed on furosemide 40 mg IV daily. ALLERGIES: NO KNOWN DRUG ALLERGIES. FAMILY HISTORY: Noncontributory. The patient's father did pass away from myocardial infarction at age 71. SOCIAL HISTORY: The patient denies any history of alcohol or tobacco abuse. REVIEW OF SYSTEMS: As in history of present illness, otherwise negative or noncontributory. He does complain of occasional mild headache and occasional mild dyspepsia. He denies bright red blood per rectum, melena, pleurisy, wheezing. PHYSICAL EXAMINATION: VITAL SIGNS: His blood pressure 153/99 with a pulse of 97, respirations 19. GENERAL: He is a well-developed, well-nourished white male, in no acute distress. NECK: Jugular venous pressure is 12 cm of water. Carotid pulses are 2+ bilaterally and without bruits. CHEST: Reveals diminished breath sounds at the bases. CARDIAC: He has a regular rhythm and rate without S3, S4, or murmur. ABDOMEN: He has a soft, nontender abdomen. Bowel sounds are present. There is no definite hepatosplenomegaly. EXTREMITIES: Reveals no clubbing, cyanosis or edema. DIAGNOSTIC DATA: EKG shows sinus rhythm, right bundle branch block, left atrial abnormality, nonspecific T-wave abnormalities. Chest x-ray shows mild left basilar atelectasis. CT of the chest shows large bilateral pleural effusions with no evidence for pulmonary embolism. LABORATORY DATA: WBC 5.4, hemoglobin 14.3, platelets 79. Potassium 4.1, BUN 16, creatinine 1.01, troponin 0.04. Brain natriuretic peptide level 680. IMPRESSION: Probable congestive heart failure in a 67-year-old white male with a history of multiple medical problems including chronic recurrent non-Hodgkin lymphoma, hypertension, paroxysmal atrial fibrillation, colon cancer, peripheral neuropathy. The patient has had fairly severe dyspnea recently as well as orthopnea. Jugular venous pressure is elevated on exam. Brain natriuretic peptide level is elevated to 680. There is no definite evidence for acute coronary syndrome. No acute ST segment or T-wave changes are seen on EKG. Echocardiogram is pending. RECOMMENDATIONS: 1. Await his 2D echo. 2. Continue intravenous Lasix diuresis. 3. Optimize his blood pressure control; will add an YIMI inhibitor and a beta tashia. 4. Will follow up when his echocardiogram has been completed. MD COLE Snyder/bernard/karon , 04:45 PM , 04:56 PM GUY
[2018-01-23] MEDS: Carvedilol 6.25 MG Tablet PO SCH (21:17)
[2018-01-23] MEDS: Temazepam 15 MG Capsule PO PRN (21:18)
[2018-01-24] MEDS: Sod Chloride 0.9% Inj 1,000 ML IV.CONT SCH (00:54)
--- NOTE | 2018-01-24 07:28 | MB ---
cc: Kaushik Coburn MD DATE: 01/23/2018 REASON FOR CONSULTATION: Consult requested by family practice resident for evaluation and management of non-Hodgkin lymphoma in a patient who is admitted with bilateral pleural effusion. HISTORY OF PRESENT ILLNESS: This is a 67-year-old, very pleasant white male, who is a Orthodox. He was diagnosed with a non-Hodgkin lymphoma in 09/2004. At the time of presentation, he had a stage IIA non-Hodgkin lymphoma, where he was found to have retroperitoneal lymphadenopathy and mesenteric lymphadenopathy. He was treated with 6 cycles of Rituxan CHOP chemotherapy completed in 01/2005, and the patient went into remission. In 10/2007, 3 years later, he had first relapse of the non-Hodgkin lymphoma and was treated with 6 cycles of Rituxan and ESHAP chemotherapy, followed by 2 years of maintenance Rituxan completed in 06/2010. He again went into remission and subsequently in 12/2014, he had a second relapse with left cervical lymph node biopsy confirming relapse. He had Rituxan and Treanda chemotherapy x 6 cycles, completed 06/2015, followed by consolidative radiation therapy to the neck area, which he finished in 12/2015. He was doing fine up until 02/2016. He again had a relapse and was treated with Gemzar and oxaliplatin chemotherapy x 12 cycles, completed in 10/2016. He had an excellent response with the treatment and, again, went into remission. In May 2017, he again was found to have enlarging left supraclavicular lymph node and was treated with radiation therapy. While getting the radiation, he had developed progressive disease. He had a multiple subcutaneous lesions, especially on the right chest wall. Biopsy of one of the subcutaneous nodules showed diffuse large B-cell non-Hodgkin lymphoma. He again had Rituxan, Gemzar and oxaliplatin chemotherapy from 08/2017 through 11/2017 when the restaging PET scan showed that he has progressive disease. We had discussed further treatment plan including the autologous bone marrow transplant. Due to being a Orthodox, he is not a candidate for the bone marrow transplant. I have started him on Imbruvica 560 mg daily, which he started about 7 days ago. The patient noticed that the first dose, he was having some shortness of breath. This gradually got worse to the point that it was hard for him to walk and lay flat. With these symptoms, he came into the emergency room. The patient had a CT angiogram of the chest which did not show any pulmonary embolism; however, he has large bilateral pleural effusion. The patient is admitted to the hospital by [facility] resident, and I have been asked to see him for further evaluation. The patient does not appear to be in distress at rest, but he stated that on minimal exertion he gets severely short of breath and also have trouble breathing when he lies down flat. He states that lately, his blood pressure has not been under control. He denies any fever, night sweats, or weight loss. He denies any nausea, vomiting. He denies any chest pains or leg swelling. The rest of the review of systems is negative. PAST MEDICAL HISTORY: Arthritis, diabetes mellitus, gastroesophageal reflux disease, hypercholesterolemia, hypertension, Orthodox, history of morbid obesity, status post gastric bypass surgery in December 2011, history of colon cancer, status post right hemicolectomy in 2016, had stage I colon cancer. PAST SURGICAL HISTORY: Cholecystectomy, colon resection, exploratory laparotomy, gastric bypass surgery in 2011, hernia repair, knee surgery, colonoscopy. ALLERGIES: NONE. MEDICATIONS: Please see EMR. FAMILY HISTORY: The patient's parents from old age. He has 3 brothers, 1 sister. One of the brother from AIDS and the other has chronic lymphocytic leukemia. The patient has 2 sons, no daughters. SOCIAL HISTORY: The patient is . He used to work as a machine maintenance supervisor. He does not smoke cigarettes, occasionally drinks alcohol. PHYSICAL EXAMINATION: GENERAL: Reveals a well-developed, well-nourished white male, in no apparent distress. VITAL SIGNS: Temperature 97.8, heart rate is 84, blood pressure 153/91, O2 saturation 94%. HEENT: PERRLA. EOMI, anicteric. No oral lesions noted. NECK: No lymphadenopathy noted. LUNGS: Decreased breath sounds on both sides. No wheezing. HEART: Regular rate and rhythm. ABDOMEN: Soft, nontender. EXTREMITIES: No pedal edema. NEUROLOGIC: Awake, alert, oriented x 3. SKIN: No significant lesions noted. ASSESSMENT AND PLAN: 1. Bilateral pleural effusion. The etiology of that is unknown; however, the differential diagnosis is side effects from the Imbruvica versus congestive heart failure versus lymphomatous pleural effusion. 2. Non-Hodgkin lymphoma with multiple relapses since 2004. Currently on Imbruvica. 3. Orthodox. 4. History of morbid obesity, status post gastric bypass surgery in 2012. PLAN: I have reviewed his available records, and I had an extensive discussion with the patient and his regarding the reason for him to be admitted to the hospital. The CT angiogram of the chest did not show any evidence of pulmonary embolism; however, he has several subcutaneous nodules which are consistent with a progressive non-Hodgkin lymphoma. He also has large bilateral pleural effusion, which is apparently a new finding. The patient states that his shortness of breath started with the Imbruvica. I reviewed the adverse side effects of Imbruvica, and pleural effusion is not listed as common side effect or adverse side effect. Certainly this could still be a possibility, since his symptoms coincide with starting the Imbruvica. However, other etiologies of bilateral pleural effusion cannot be ruled out at this time. My recommendation is to get the echocardiogram to evaluate for any congestive heart failure or valvular disease.The patient states that lately his blood pressure is not under control with the present medication. Therefore, I will get a cardiology consult for evaluation of possible congestive heart failure or some valvular heart valve problem and also to manage his uncontrolled hypertension. Previously, I had put a consult for pulmonary to see, but, after discussion with the admitting resident, I have advised her to cancel the pulmonary consult at this time. We will consult interventional radiologist for diagnostic and therapeutic thoracentesis. The patient has been getting diuresis. It is very unusual for the patient to have bilateral lymphomatous pleural effusion. Typically, this is unilateral. I have reviewed his blood test results. CBC: Showed white count 5.4, hemoglobin 14.3. Platelet count 79. The comprehensive metabolic profile is normal except the GFR is 74 and glucose is 150. BNP is high at 680. Given the bilateral pleural effusion and elevated BNP, I think most likely the patient has congestive heart failure and an echocardiogram would be helpful in this situation. Case has been discussed with the admitting resident. Further recommendations based on his hospital stay. Thank you for asking my opinion. MD LAURA Noriega/bernard/franklin , 12:15 AM , 12:37 AM GUY
--- NOTE | 2018-01-24 07:55 | P.PNCA ---
Subjective Interval history: Dyspnea improved. No orthopnea, PND, CP, palpitations, dizziness. Slept very well. Physical Exam Vital signs: Vital Signs 01/23/18 10:07 01/23/18 10:12 01/23/18 11:20 Temperature 97.5 F L Pulse Rate 85 82 Respiratory Rate 16 16 Blood Pressure 147/89 H 154/90 H Pulse Oximetry 99 97 96 01/23/18 14:12 01/23/18 17:01 01/23/18 17:10 Temperature Pulse Rate 97 H 94 H Respiratory Rate 19 18 Blood Pressure 153/99 H Pulse Oximetry 92 L 97 01/23/18 17:25 01/23/18 18:35 01/23/18 20:00 Temperature 97.8 F 97.9 F Pulse Rate 81 84 82 Respiratory Rate 18 18 18 Blood Pressure 147/84 H 153/91 H 143/74 H Pulse Oximetry 96 94 L 94 L 01/23/18 20:32 01/23/18 22:00 01/24/18 00:00 Temperature 97.8 F Pulse Rate 81 71 Respiratory Rate 18 18 Blood Pressure 93/56 L Pulse Oximetry 94 L 97 90 L 01/24/18 00:12 01/24/18 03:43 01/24/18 04:00 Temperature 97.3 F L Pulse Rate 75 76 75 Respiratory Rate 18 18 16 Blood Pressure 113/59 L Pulse Oximetry 97 Intake & Output 01/23/18 01/24/18 01/24/18 18:59 06:59 18:59 Intake Total 1480 / 1480 Output Total 1350 / 1350 500 / 500 Balance -1350 / -1350 980 / 980 Weight 85.1 kg 85.1 kg Intake: IV 1000 / 1000 NS Inj 1,000 ML @ 125 mls/hr IV 1000 / 1000 .CONT .Q8H [facility] Rx#:[id number] Oral 480 / 480 Output: Urine 1350 / 1350 500 / 500 Other: Date of Last Bowel Movement 01/23/18 Weight On Admission 85.1 kg - Constitutional no acute distress - Routine Neck Exam Absent: JVD - Routine Respiratory Exam Present: CTA bilaterally - Routine Cardiovascular Exam Present: RRR, S1, S2. Absent: murmur, gallop - Routine Abdominal Exam Present: soft, normoactive bowel sounds. Absent: tenderness, organomegaly - Routine Extremities Exam Absent: cyanosis, clubbing, edema Assessment and Plan - Assessment (1) Congestive heart failure Code(s): I50.9 - Heart failure, unspecified Status: Acute Plan: Doing well after diuresis. Echo pending. BP's much better on beta tashia, YIMI-I therapy. REC continue same, await echo, consider change to oral furosemide later today. (2) Paroxysmal atrial fibrillation Code(s): I48.0 - Paroxysmal atrial fibrillation Status: Chronic Plan: Reportedly paroxysmal atrial fibrillation diagnosed 10 years ago with no significant recurrences. Recommend continue beta tashia therapy. No aspirin with his thrombocytopenia. - Plan Code Status: full code Discussed Condition With: patient (1) Congestive heart failure Qualifiers: Heart failure type: unspecified Heart failure chronicity: acute Qualified Code(s): I50.9 - Heart failure, unspecified
[2018-01-24 09:19] LABS: INR 1.1 Ratio; Prothrombin Time 10.7 sec (9.8-11.6)
[2018-01-24 09:21] LABS: Baso % (Auto) 0.6 % (0.0-2.0); Eos % (Auto) 0.5 % (0.0-4.0); Hematocrit 40.2 % (39.0-51.0); Hemoglobin 13.6 gm/dL (13.0-17.0); Lymph # (Auto) 0.7 th/mm3 (1.0-4.8); Lymph % (Auto) 13.4 % (9.0-44.0); Mean Corpuscular HGB Conc 33.8 % (32.0-36.0); Mean Corpuscular Hemoglobin 31.5 pg (27.0-34.0); Mean Corpuscular Volume 93.1 fL (80.0-100.0); Mean Platelet Volume 8.6 fL (7.0-11.0); Mono # (Auto) 0.5 th/mm3 (0.0-0.9); Mono % (Auto) 10.2 % (0.0-8.0); Neut % (Auto) 75.3 % (16.0-70.0); Platelet Count 76 th/mm3 (150-450); Red Blood Count 4.32 mil/mm3 (4.50-5.90); Red Cell Distribution Width 14.9 % (11.6-17.2); White Blood Count 5.2 th/mm3 (4.0-11.0)
[2018-01-24] MEDS: Carvedilol 6.25 MG Tablet PO SCH ×2 (09:32→21:19)
[2018-01-24 09:45] LABS: Albumin 3.1 g/dL (3.4-5.0); Anion Gap 8 meq/L (5-15); Aspartate Aminotransferase 15 U/L (15-37); Blood Urea Nitrogen 14 mg/dL (7-18); Calcium 8.4 mg/dL (8.5-10.1); Carbon Dioxide 29.7 meq/L (21.0-32.0); Chloride 105 meq/L (98-107); Glomerular Filtration Rate Greater Than 89 mL/min (>89); Glucose,Random 75 mg/dL (74-106); Potassium 3.6 meq/L (3.5-5.1); Sodium 143 meq/L (136-145)
[2018-01-24 09:50] LABS: Alanine Aminotransferase 19 U/L (12-78); Alkaline Phosphatase 105 U/L (45-117); Total Protein 6.2 g/dL (6.4-8.2); Troponin I 0.03 ng/mL (0.02-0.05)
[2018-01-24] MEDS ORDERED: Dextrose 50% in Water 50 ML Vial IV.PUSH PRN (11:33)
--- NOTE | 2018-01-24 11:45 | P.PNFP ---
Subjective Interval history: Patient seen and examined bedside this morning. Patient states that his breathing has improved overnight, and he feels 50% better than at the time of his admission. He laid flat overnight comfortably and did not experience increasing shortness of breath. He has been using the nebulizer treatments and diuretics and thinks that this is helping. He denies any chest pains. No acute events overnight. No fever/chills. <Vida Gimenez - 01/24/18 11:44> Results - Labs Result diagrams: 01/24/18 07:02 01/24/18 07:02 <Jerardo Herr - 01/25/18 08:24> Abnormal lab results 01/24/18 01/24/18 01/24/18 Range/Units 07:02 07:02 07:02 RBC 4.32 L (4.50-5.90) mil/mm3 Plt Count 76 L (150-450) th/mm3 Neut % (Auto) 75.3 H (16.0-70.0) % Cache % (Auto) 10.2 H (0.0-8.0) % Lymph # (Auto) 0.7 L (1.0-4.8) th/mm3 POC Glucose (68-110) mg/dl Calcium 8.4 L (8.5-10.1) mg/dL B-Natriuretic Peptide 288 H (0-100) pg/mL Total Protein 6.2 L D (6.4-8.2) g/dL Albumin 3.1 L (3.4-5.0) g/dL Pleural RBC (0-0) /mm3 Pleural Nuc Cells (0-10) /mm3 01/24/18 01/24/18 Range/Units 14:02 16:22 RBC (4.50-5.90) mil/mm3 Plt Count (150-450) th/mm3 Neut % (Auto) (16.0-70.0) % Cache % (Auto) (0.0-8.0) % Lymph # (Auto) (1.0-4.8) th/mm3 POC Glucose 128 H (68-110) mg/dl Calcium (8.5-10.1) mg/dL B-Natriuretic Peptide (0-100) pg/mL Total Protein (6.4-8.2) g/dL Albumin (3.4-5.0) g/dL Pleural RBC 757 H (0-0) /mm3 Pleural Nuc Cells 121 H (0-10) /mm3 Short CBC 01/24/18 Range/Units 07:02 WBC 5.2 (4.0-11.0) th/mm3 Hgb 13.6 (13.0-17.0) gm/dL Hct 40.2 (39.0-51.0) % Plt Count 76 L (150-450) th/mm3 BMP 01/24/18 07:02 Sodium 143 Potassium 3.6 Chloride 105 Carbon Dioxide 29.7 BUN 14 Creatinine 0.81 Calcium 8.4 L Cardiac Enzymes 01/24/18 Range/Units 07:02 Troponin I 0.03 (0.02-0.05) ng/mL Liver Function 01/24/18 Range/Units 07:02 Total Bilirubin 0.7 (0.2-1.0) mg/dL AST 15 (15-37) U/L ALT 19 (12-78) U/L Alkaline Phosphatase 105 (45-117) U/L Albumin 3.1 L (3.4-5.0) g/dL <CarmenzaJerardo - 01/25/18 08:24> Abnormal lab results 01/23/18 01/23/18 01/23/18 Range/Units 11:25 11:25 11:25 RBC (4.50-5.90) mil/mm3 Plt Count 79 L (150-450) th/mm3 Neut % (Auto) 73.8 H (16.0-70.0) % Cache % (Auto) 8.7 H (0.0-8.0) % Lymph # (Auto) 0.9 L (1.0-4.8) th/mm3 APTT 24.1 L (24.3-30.1) sec D-Dimer Quant (PE/DVT) 0.62 H (0.00-0.50) mg/L FEU Estimated GFR 74 L (>89) mL/min Random Glucose 150 H (74-106) mg/dL Calcium (8.5-10.1) mg/dL B-Natriuretic Peptide (0-100) pg/mL Total Protein (6.4-8.2) g/dL Albumin (3.4-5.0) g/dL 01/23/18 01/24/18 01/24/18 Range/Units 11:25 07:02 07:02 RBC 4.32 L (4.50-5.90) mil/mm3 Plt Count 76 L (150-450) th/mm3 Neut % (Auto) 75.3 H (16.0-70.0) % Cache % (Auto) 10.2 H (0.0-8.0) % Lymph # (Auto) 0.7 L (1.0-4.8) th/mm3 APTT (24.3-30.1) sec D-Dimer Quant (PE/DVT) (0.00-0.50) mg/L FEU Estimated GFR (>89) mL/min Random Glucose (74-106) mg/dL Calcium (8.5-10.1) mg/dL B-Natriuretic Peptide 680 H 288 H (0-100) pg/mL Total Protein (6.4-8.2) g/dL Albumin (3.4-5.0) g/dL 01/24/18 Range/Units 07:02 RBC (4.50-5.90) mil/mm3 Plt Count (150-450) th/mm3 Neut % (Auto) (16.0-70.0) % Cache % (Auto) (0.0-8.0) % Lymph # (Auto) (1.0-4.8) th/mm3 APTT (24.3-30.1) sec D-Dimer Quant (PE/DVT) (0.00-0.50) mg/L FEU Estimated GFR (>89) mL/min Random Glucose (74-106) mg/dL Calcium 8.4 L (8.5-10.1) mg/dL B-Natriuretic Peptide (0-100) pg/mL Total Protein 6.2 L D (6.4-8.2) g/dL Albumin 3.1 L (3.4-5.0) g/dL Short CBC 01/23/18 01/24/18 Range/Units 11:25 07:02 WBC 5.4 5.2 (4.0-11.0) th/mm3 Hgb 14.3 13.6 (13.0-17.0) gm/dL Hct 42.6 40.2 (39.0-51.0) % Plt Count 79 L 76 L (150-450) th/mm3 BMP 01/23/18 01/24/18 11:25 07:02 Sodium 141 143 Potassium 4.1 3.6 Chloride 104 105 Carbon Dioxide 30.0 29.7 BUN 16 14 Creatinine 1.01 0.81 Calcium 9.1 8.4 L Cardiac Enzymes 01/23/18 01/23/18 01/24/18 Range/Units 11:25 22:58 07:02 Troponin I 0.04 0.04 0.03 (0.02-0.05) ng/mL Liver Function 01/23/18 01/24/18 Range/Units 11:25 07:02 Total Bilirubin 0.7 0.7 (0.2-1.0) mg/dL AST 26 15 (15-37) U/L ALT 23 19 (12-78) U/L Alkaline Phosphatase 116 105 (45-117) U/L Albumin 3.6 3.1 L (3.4-5.0) g/dL Urine 01/23/18 Range/Units 15:25 Urine Color Colorless (Yellw/Straw) Urine Clarity Clear (Clear) Urine pH 6.0 (5.0-8.5) Ur Specific [place] 1.006 (1.002-1.035) Urine Protein Negative (Neg-Trace) mg/dL Urine Glucose (UA) Negative (Negative) mg/dL <Vida Gimenez - 01/24/18 11:44> - Imaging Impressions Chest X-Ray 01/24/18 00:00 CONCLUSION: Improved aeration. No evidence for pneumothorax. Thoracentesis Ultrasound 01/24/18 00:00 CONCLUSION: 1. Uncomplicated ultrasound-guided left thoracentesis. <Jerardo Herr - 01/25/18 08:24> Impressions Chest X-Ray 01/23/18 11:20 CONCLUSION: Mild basilar atelectasis left lung base. Chest CTA 01/23/18 12:09 CONCLUSION: 1. No evidence for pulmonary embolism. 2. Subcutaneous metastatic nodules are identified as above. 3. Large bilateral pleural effusions. <Vida Gimenez - 01/24/18 11:44> Physical Exam Vital signs: Vital Signs 01/24/18 09:00 01/24/18 11:42 01/24/18 13:10 Temperature 98.7 F Pulse Rate 80 74 82 Respiratory Rate 17 20 Blood Pressure 109/65 Pulse Oximetry 92 L 01/24/18 14:45 01/24/18 15:07 01/24/18 17:52 Temperature 98.2 F Pulse Rate 70 75 66 Respiratory Rate 20 20 18 Blood Pressure 113/58 L 133/64 114/72 Pulse Oximetry 92 L 92 L 99 01/24/18 18:56 01/24/18 20:00 01/24/18 20:09 Temperature 99.1 F Pulse Rate 77 79 82 Respiratory Rate 17 Blood Pressure 117/58 L Pulse Oximetry 93 L 01/24/18 22:34 01/25/18 00:00 01/25/18 00:12 Temperature 98.4 F Pulse Rate 76 78 75 Respiratory Rate 18 17 Blood Pressure 104/60 Pulse Oximetry 97 91 L 01/25/18 04:00 01/25/18 04:05 Temperature 98.0 F Pulse Rate 75 68 Respiratory Rate 17 16 Blood Pressure 103/65 Pulse Oximetry 96 Intake & Output 01/24/18 01/25/18 01/25/18 18:59 06:59 18:59 Intake Total 480 / 480 Balance 480 / 480 Weight 85.1 kg Intake: Oral 480 / 480 Other: # Voids 2 Date of Last Bowel Movement 01/24/18 01/24/18 <Jerardo Herr - 01/25/18 08:24> Vital Signs 01/23/18 11:20 01/23/18 14:12 01/23/18 17:01 Temperature Pulse Rate 97 H Respiratory Rate 19 Blood Pressure 153/99 H Pulse Oximetry 96 92 L 97 01/23/18 17:10 01/23/18 17:25 01/23/18 18:35 Temperature 97.8 F Pulse Rate 94 H 81 84 Respiratory Rate 18 18 18 Blood Pressure 147/84 H 153/91 H Pulse Oximetry 96 94 L 01/23/18 20:00 01/23/18 20:32 01/23/18 22:00 Temperature 97.9 F Pulse Rate 82 81 Respiratory Rate 18 18 Blood Pressure 143/74 H Pulse Oximetry 94 L 94 L 97 01/24/18 00:00 01/24/18 00:12 01/24/18 03:43 Temperature 97.8 F Pulse Rate 71 75 76 Respiratory Rate 18 18 18 Blood Pressure 93/56 L Pulse Oximetry 90 L 01/24/18 04:00 01/24/18 08:00 01/24/18 08:10 Temperature 97.3 F L 97.7 F Pulse Rate 75 72 70 Respiratory Rate 16 20 17 Blood Pressure 113/59 L 112/67 Pulse Oximetry 97 94 L 92 L Intake & Output 01/23/18 01/24/18 01/24/18 18:59 06:59 18:59 Intake Total 1480 / 1480 Output Total 1350 / 1350 500 / 500 Balance -1350 / -1350 980 / 980 Weight 85.1 kg 85.1 kg Intake: IV 1000 / 1000 NS Inj 1,000 ML @ 125 mls/hr IV 1000 / 1000 .CONT .Q8H ADELSO Rx#:[id number] Oral 480 / 480 Output: Urine 1350 / 1350 500 / 500 Other: Date of Last Bowel Movement 01/23/18 Weight On Admission 85.1 kg <[facility] 01/24/18 11:44> - Constitutional no acute distress <[facility] 01/24/18 11:44> - Routine Respiratory Exam Present: CTA bilaterally. Absent: accessory muscle use, decreased breath sounds , respiratory distress, wheezes, distant breath sounds, diminished air movement <[facility] 01/24/18 11:44> Comments: Improved from crackles on yesterday's exam <[facility] 01/24/18 11:44> - Routine Cardiovascular Exam Present: RRR, S1, S2 <[facility] 01/24/18 11:44> - Routine Abdominal Exam Present: soft, normoactive bowel sounds. Absent: tenderness <[facility] 01/24/18 11:44> - Routine Extremities Exam Absent: cyanosis, clubbing, edema, calf tenderness <[facility] 11:44> Assessment and Plan - Assessment (1) Non Hodgkin's lymphoma Code(s): C85.90 - Non-Hodgkin lymphoma, unspecified, unspecified site Status: Acute (2) Shortness of breath Code(s): R06.02 - Shortness of breath Status: Acute (3) Thrombocytopenia Code(s): D69.6 - Thrombocytopenia, unspecified Status: Acute (4) Hypertension Code(s): I10 - Essential (primary) hypertension Status: Acute (5) Elevated brain natriuretic peptide (BNP) level Code(s): R79.89 - Other specified abnormal findings of blood chemistry Status : Acute (6) History of diabetes mellitus Code(s): Z86.39 - Personal history of other endocrine, nutritional and metabolic disease Status: Acute (7) Nutrition, metabolism, and development symptoms Code(s): R63.8 - Other symptoms and signs concerning food and fluid intake Status: Acute (8) DVT prophylaxis Status: Acute <Jerardo Herr - 01/25/18 08:24> (1) Non Hodgkin's lymphoma Code(s): C85.90 - Non-Hodgkin lymphoma, unspecified, unspecified site Status: Acute Plan: Currently undergoing chemotherapy for non-Hodgkin's lymphoma, holding chemotherapy per consulted oncologist Dr. Coburn . Concerns for neutropenia/infection considering on chemotherapy, WBC stable at 5.2, slightly increased from baseline 3-4 on previous admissions . Will continue to monitor CBC Hold chemotherapy drugs for now, continue to follow onc recommendations. Hypercoagulable state. Continue to monitor PT/INR. SCDs only. (2) Shortness of breath Code(s): R06.02 - Shortness of breath Status: Acute Plan: Shortness of breath with associated orthopnea and nonproductive cough for 1 weeks status post start of new chemotherapy pills. Crackles heard at the lung bases bilaterally on admission. CTA reveals large pleural effusions, subcutaneous metastatic nodules Differential Dx: Bilateral pleural effusions via metastatic nodules versus CHF versus infectious related versus drug-induced Follow-up diagnostic and therapeutic her sound guided thoracentesis, follow-up pathology BNP 680 on admission, decreased to 288 today Follow-up echocardiogram Symptomatic treatment: Duonebs scheduled q4hrs Status post Lasix 40 mg IV x2 We will add p.o. Lasix starting tomorrow: 40 mg p.o. daily CXRay: .Mild basilar atelectasis left lung base. Cardiomegaly. Chest CTA: No evidence for pulmonary embolism. Subcutaneous metastatic nodules are identified as above. Large bilateral pleural effusions EKG: Left atrial enlargement, right bundle branch block. First-degree AV block. Echocardiogram ordered. Follow-up. Respiratory panel, strep pneumo antigen, Legionella antigen, influenza antigen ordered: negative (3) Thrombocytopenia Code(s): D69.6 - Thrombocytopenia, unspecified Status: Acute Plan: Associated with cancer diagnosis, chemotherapy treatment, no signs of epistaxis or other hemorrhage Platelets on admission 79 --> 76 today Patient is Latter-[employer], with strict adherence. No possibility for platelet infusion Continue to monitor platelets daily (4) Hypertension Code(s): I10 - Essential (primary) hypertension Status: Acute Plan: Previously not on blood pressure medication, blood pressures improved overnight with some borderline hypotensive pressures (93/56) BP 150/90 on admission, highest BP 153/99 Oncology consulted cardiology, added Vasotec 10 mg p.o. twice daily scheduled, carvedilol 6.25 mg p.o. twice daily scheduled Continue to follow-up recommendations of cardiology and will likely discharge on BP meds and follow-up as outpatient (5) Elevated brain natriuretic peptide (BNP) level Code(s): R79.89 - Other specified abnormal findings of blood chemistry Status : Acute Plan: See plan for CHF evaluation above Follow-up echocardiogram Follow up recommendations of cardiology (6) History of diabetes mellitus Code(s): Z86.39 - Personal history of other endocrine, nutritional and metabolic disease Status: Acute Plan: She states history of diabetes that is now well controlled without medication Blood glucose levels slightly elevated, follow-up [id number] glucose Add sliding scale for coverage (7) Nutrition, metabolism, and development symptoms Code(s): R63.8 - Other symptoms and signs concerning food and fluid intake Status: Acute Plan: Fluids: Encourage p.o. fluids, no IV fluids on diuretics Electrolytes: Monitor and replete as needed. Currently stable. Nutrition: Regular diet okay for thoracentesis (8) DVT prophylaxis Status: Acute Plan: SCDs only. Caution with anticoagulation with thrombocytopenia. Will add Lovenox after procedure. <Vida Gimenez - 01/24/18 11:14> - Assessment and Plan 67-year-old male currently undergoing chemotherapy for non-Hodgkin's lymphoma, presents with shortness of breath with associated orthopnea and nonproductive cough for 1 weeks status post start of new chemotherapy drugs. <Vida Gimenez - 01/24/18 11:44> Discharge Planning: Discharge pending thoracentesis for diagnostic and therapeutic purposes, clearance from oncology for follow-up, scheduled outpatient follow-up with cardiology <Vida Gimenez - 01/24/18 11:44> - Attending Attestation The exam, history, and the medical decision-making described in the above note were completed with the assistance of the resident physician. I reviewed and agree with the findings presented. I attest that I had a [id number] encounter with the patient on the same day, and personally performed and documented my assessment and findings in the medical record. Robert RUFFIN <Jerardo Herr - 01/25/18 08:24>
[2018-01-24] MEDS ORDERED: Insulin NovoLIN Regular Correctional Sugar Inj SQ SCH (12:00)
--- NOTE | 2018-01-24 14:36 | ECG ---
Date Performed: 01/23/2018 Time Performed: 11:38:31 PTAGE: 67 years EKG: Sinus rhythm WITH FIRST DEGREE AV BLOCK WITH OCCASIONAL SUPRAVENTRICULAR PREMATURE COMPLEXES LEFT ATRIAL ENLARGEM ENT MARKED LEFT AXIS DEVIATION RIGHT BUNDLE BRANCH BLOCK SEPTAL MYOCARDIAL INFARCTION MODERATE T-WAVE ABNORMALITY, CONSIDER LATERAL ISCHEMIA Compared to previous tracing lateral T wave changes are new, consider ischemia ABNORMAL ECG PREVIOUS TRACING : 12/13/2017 20.33 DOCTOR: Kali Garcia Interpretating Date/Time 01/24/2018 14:35:35
--- NOTE | 2018-01-24 14:38 | ECG ---
Date Performed: 01/23/2018 Time Performed: 17:14:22 PTAGE: 67 years EKG: Sinus rhythm WITH FIRST DEGREE AV BLOCK WITH OCCASIONAL SUPRAVENTRICULAR PREMATURE COMPLEXES LEFT ATRIAL ENLARGEM ENT MARKED LEFT AXIS DEVIATION RIGHT BUNDLE BRANCH BLOCK Septal ND, age undetermined Compared to prev ious tracing lateral T wave changes have improved ABNORMAL ECG PREVIOUS TRACING : 01/23/2018 11.38 DOCTOR: Kali Garcia Interpretating Date/Time 01/24/2018 14:37:25
[2018-01-24] MEDS ORDERED: Lidocaine PF 1% Inj 10 ML Amp ONE (14:44)
--- NOTE | 2018-01-24 14:55 | XR ---
EXAM DATE: 01/24/2018 2:36 PM EDT AGE/SEX: 67 years / Male INDICATIONS: Post left thoracentesis. CLINICAL DATA: This is the patient's initial encounter. Patient reports that signs and symptoms have been present for 1 day and indicates a pain score of 3/10. MEDICAL/SURGICAL HISTORY: . Non-Hodgkin's lymphoma Cholecystectomy. Gastric bypass. Colon rese ction . COMPARISON: [facility], CTA PULMONARY W CONTRAST W 3D, 01/23/2018. . FINDINGS: There is patchy basilar atelectasis and airspace disease suspected. There may be a tiny residual righ t effusion. No obvious pneumothorax. Left-sided portacatheter again noted. CONCLUSION: Improved aeration. No evidence for pneumothorax. Electronically signed by: Shade Watson MD 01/24/2018 2:54 PM EDT
--- NOTE | 2018-01-24 16:03 | US ---
EXAM DATE: 01/24/2018 2:58 PM EDT AGE/SEX: 67 years / Male INDICATIONS: Left pleural effusion. CLINICAL DATA: This is the patient's initial encounter. Patient reports that signs and symptoms have been present for 2 days and indicates a pain score of 2/10. MEDICAL/SURGICAL HISTORY: . Cancer of neck. Non-Hodgkin's lymphoma. Cholecystectomy. Appendec delmer. Gastric bypass. COMPARISON: [facility] [place], 03/19/2016. . FLUID: Total volume of 700cc clear, yellowish brown cc of . fluid was removed. Fluid was sent to lab for ordered studies. . . TECHNIQUE: Ultrasound guidance for thoracentesis. Thoracentesis. The risks, benefits, and alternatives to ultrasound guided thoracentesis were explained to the patien t in lay simple terms, including the risk of bleeding and infection. Written and verbal informed con sent was obtained. Appropriate area for left thoracentesis was marked under ultrasound guidance with the patient in the upright position. Overlying skin was prepped and draped in the usual sterile fashion and with local anesthetic, a dermatotomy was made with an 11 blade scalpel. A 6 Indonesian thoracentesis catheter was p laced in the pleural space and fluid was removed. Catheter was then removed and a sterile dressing a pplied. There were no immediate complications. The patient tolerated the procedure well and the left the ultrasound suite in stable condition. Chest radiograph is to be obtained. FINDINGS: Moderate left-sided pleural effusion. CONCLUSION: 1. Uncomplicated ultrasound-guided left thoracentesis. Electronically signed by: Malcom Maguire MD 01/24/2018 4:01 PM EDT
[2018-01-24 18:28] LABS: Lymphocytes,Pleural Fluid 74 %; Mesothelial,Pleural Fluid 1 %; Monocytes,Pleural Fluid 6 %; Neutrophils,Pleural Fluid 18 %
[2018-01-24 18:30] LABS: RBC,Pleural Fluid 757 /mm3 (0-0)
[2018-01-24] MEDS: Temazepam 15 MG Capsule PO PRN (21:19)
[2018-01-25] MEDS: Carvedilol 6.25 MG Tablet PO SCH (08:47)
[2018-01-25] MEDS ORDERED: Furosemide 40 MG Tablet PO SCH (09:00)
[2018-01-25 09:59] VITALS: O2SAT 97
[2018-01-25] MEDS ORDERED: Lidocaine PF 1% Inj 10 ML Amp ONE (10:04)
--- NOTE | 2018-01-25 10:22 | ECG ---
Date Performed: 01/23/2018 Time Performed: 23:43:58 PTAGE: 67 years EKG: Sinus rhythm with PAC(s) with borderline 1st degree A-V block. Left axis deviation RBBB with left anterior fascic ular block Possible septal infarct - age undetermined Since the previous tracing, no significant santamaria ge noted Abnormal ECG PREVIOUS TRACING : 01/23/18 DOCTOR: Ghazala Del Rio Interpretating Date/Time 01/25/2018 10:20:01
[2018-01-25 11:09] LABS: Lymphocytes,Pleural Fluid 68 %; Mesothelial,Pleural Fluid 3 %; Monocytes,Pleural Fluid 2 %; Neutrophils,Pleural Fluid 25 %
[2018-01-25 11:10] LABS: RBC,Pleural Fluid 1564 /mm3 (0-0)
[2018-01-25] MEDS ORDERED: guaiFENesin 600 MG ER Tablet PO PRN (11:47)
--- NOTE | 2018-01-25 12:01 | XR ---
EXAM DATE: 01/25/2018 10:01 AM EDT AGE/SEX: 67 years / Male INDICATIONS: Post thoracentesis. CLINICAL DATA: This is the patient's subsequent encounter. Patient reports that signs and symptoms h ave been present for 3 days and indicates a pain score of 0/10. MEDICAL/SURGICAL HISTORY: . Non-Hodgkin's lymphoma . Cholecystectomy. Gastric bypass. Colon re section . COMPARISON: [facility] [place], [place]/24/2018. . FINDINGS: The heart is enlarged. There is a left subclavian line in satisfactory position. There is no pneumoth orax. There are hypoventilatory changes. The overall appearance of the chest is similar to previous e xam. The bony structures are grossly intact. CONCLUSION: Central venous catheter in good position. No acute abnormality seen. Cardiomegaly. Electronically signed by: Usama Schulte MD 01/25/2018 10:03 AM EDT
--- NOTE | 2018-01-25 12:06 | P.PNONC ---
Subjective Interval history: Afebrile Patient reports he is feeling much better since coming into the hospital Shortness of breath much improved after thoracentesis yesterday removed 700cc's of fluid. Denies chest pain Feels like he still has secretions that need to come up; asking for something to help with that Wants to go home Has not yet had echocardiogram Objective Vital Signs/Intake & Output: Vital Signs 01/24/18 13:10 01/24/18 14:45 01/24/18 15:07 Temperature 98.7 F Pulse Rate 82 70 75 Respiratory Rate 20 20 20 Blood Pressure 109/65 113/58 L 133/64 Pulse Oximetry 92 L 92 L 92 L 01/24/18 17:52 01/24/18 18:56 01/24/18 20:00 Temperature 98.2 F 99.1 F Pulse Rate 66 77 79 Respiratory Rate 18 17 Blood Pressure 114/72 117/58 L Pulse Oximetry 99 93 L 01/24/18 20:09 01/24/18 22:34 01/25/18 00:00 Temperature 98.4 F Pulse Rate 82 76 78 Respiratory Rate 18 17 Blood Pressure 104/60 Pulse Oximetry 97 91 L 01/25/18 00:12 01/25/18 04:00 01/25/18 04:05 Temperature 98.0 F Pulse Rate 75 75 68 Respiratory Rate 17 16 Blood Pressure 103/65 Pulse Oximetry 96 01/25/18 09:03 01/25/18 09:55 01/25/18 11:33 Temperature 97.8 F 97.8 F Pulse Rate 78 65 62 Respiratory Rate 20 18 16 Blood Pressure 109/67 98/62 L Pulse Oximetry 94 L 97 01/25/18 11:35 Temperature Pulse Rate Respiratory Rate Blood Pressure Pulse Oximetry 97 Intake & Output 01/24/18 01/25/18 01/25/18 18:59 06:59 18:59 Intake Total 480 / 480 Balance 480 / 480 Weight 187 lb 9.814 oz Intake: Oral 480 / 480 Other: # Voids 2 Date of Last Bowel Movement 01/24/18 01/24/18 Result Diagrams: 01/24/18 07:02 01/24/18 07:02 Laboratory Results: Laboratory Results - last 24 hr 01/23/18 01/24/18 01/24/18 15:25 14:02 14:02 POC Glucose Pleural pH Pleural Spec [place] Pleural RBC Pleural Nuc Cells Pleural Neutrophils Pleural Lymphocytes Pleural Monocytes Pleural Histocytes Pleural Mesothelial Pleural Fluid Comment Pleural Total Protein Pleural Albumin 1.8 Pleural LDH Pleural Glucose Pleural Amylase Cancelled Adenovirus (PCR) Cancelled Bordetella holmesii PCR Cancelled B. pertussis DNA (PCR) Cancelled B. paraper/bronch (PCR) Cancelled Human Metapneumovir PCR Cancelled Influenza A (RT-PCR) Cancelled Influenza A (H1) PCR Cancelled Influenza A (H3) PCR Cancelled Influenza B (RT-PCR) Cancelled Parainfluenza 1 (PCR) Cancelled Parainfluenza 2 (PCR) Cancelled Parainfluenza 3 (PCR) Cancelled Parainfluenza 4 (PCR) Cancelled RSV Type A (PCR) Cancelled RSV Type B (PCR) Cancelled Rhinovirus (PCR) Cancelled 01/24/18 01/24/18 01/24/18 14:02 14:02 14:02 POC Glucose Pleural pH 8.0 Pleural Spec [place] Pleural RBC Pleural Nuc Cells Pleural Neutrophils Pleural Lymphocytes Pleural Monocytes Pleural Histocytes Pleural Mesothelial Pleural Fluid Comment Pleural Total Protein Pleural Albumin Pleural LDH 110 Pleural Glucose 119 Pleural Amylase Adenovirus (PCR) Bordetella holmesii PCR B. pertussis DNA (PCR) B. paraper/bronch (PCR) Human Metapneumovir PCR Influenza A (RT-PCR) Influenza A (H1) PCR Influenza A (H3) PCR Influenza B (RT-PCR) Parainfluenza 1 (PCR) Parainfluenza 2 (PCR) Parainfluenza 3 (PCR) Parainfluenza 4 (PCR) RSV Type A (PCR) RSV Type B (PCR) Rhinovirus (PCR) 01/24/18 01/24/18 01/24/18 14:02 14:02 14:02 POC Glucose Pleural pH Pleural Spec [place] 0.019 Pleural RBC 757 H Pleural Nuc Cells 121 H Pleural Neutrophils 18 Pleural Lymphocytes 74 Pleural Monocytes 6 Pleural Histocytes 1 Pleural Mesothelial 1 Pleural Fluid Comment Pleural Total Protein 2.5 Pleural Albumin Pleural LDH Pleural Glucose Pleural Amylase Adenovirus (PCR) Bordetella holmesii PCR B. pertussis DNA (PCR) B. paraper/bronch (PCR) Human Metapneumovir PCR Influenza A (RT-PCR) Influenza A (H1) PCR Influenza A (H3) PCR Influenza B (RT-PCR) Parainfluenza 1 (PCR) Parainfluenza 2 (PCR) Parainfluenza 3 (PCR) Parainfluenza 4 (PCR) RSV Type A (PCR) RSV Type B (PCR) Rhinovirus (PCR) 01/24/18 01/25/18 01/25/18 16:22 09:32 09:32 POC Glucose 128 H Pleural pH Pleural Spec [place] Pleural RBC Pleural Nuc Cells Pleural Neutrophils Pleural Lymphocytes Pleural Monocytes Pleural Histocytes Pleural Mesothelial Pleural Fluid Comment Pleural Total Protein Pleural Albumin 2.1 Pleural LDH Pleural Glucose Pleural Amylase 11 Adenovirus (PCR) Bordetella holmesii PCR B. pertussis DNA (PCR) B. paraper/bronch (PCR) Human Metapneumovir PCR Influenza A (RT-PCR) Influenza A (H1) PCR Influenza A (H3) PCR Influenza B (RT-PCR) Parainfluenza 1 (PCR) Parainfluenza 2 (PCR) Parainfluenza 3 (PCR) Parainfluenza 4 (PCR) RSV Type A (PCR) RSV Type B (PCR) Rhinovirus (PCR) 01/25/18 01/25/18 01/25/18 09:32 09:32 09:32 POC Glucose Pleural pH Pleural Spec [place] Pleural RBC 1564 H Pleural Nuc Cells 131 H Pleural Neutrophils 25 Pleural Lymphocytes 68 Pleural Monocytes 2 Pleural Histocytes 2 Pleural Mesothelial 3 Pleural Fluid Comment Pleural Total Protein 2.9 Pleural Albumin Pleural LDH 134 Pleural Glucose Pleural Amylase Adenovirus (PCR) Bordetella holmesii PCR B. pertussis DNA (PCR) B. paraper/bronch (PCR) Human Metapneumovir PCR Influenza A (RT-PCR) Influenza A (H1) PCR Influenza A (H3) PCR Influenza B (RT-PCR) Parainfluenza 1 (PCR) Parainfluenza 2 (PCR) Parainfluenza 3 (PCR) Parainfluenza 4 (PCR) RSV Type A (PCR) RSV Type B (PCR) Rhinovirus (PCR) Culture Results: Microbiology 01/24/18 14:02 Gram Stain - Final Fluid - Pleural fluid 01/23/18 15:25 Streptococcus pneumoniae Antigen (M - Final Urine - Random Urine Presumptive negative for streptococcus pneumoniae antigen, suggesting no current or recent infection. Infection due to Streptococcus pneumoniae cannot be ruled out since the antigen present in the sample may be below the detection limit of the test. 01/23/18 15:25 Legionella Antigen - Final Urine - Random Urine Presumptive negative for Legionella pneumophila serogroup 1 antigen in urine, suggesting no recent or recurrent infection. Infection due to Legionella cannot be ruled out since other serogroups and species may cause disease, antigen may not be present in urine in early infection, and the level of antigen present in the urine may be below the detection limit of the test. 01/23/18 15:25 Influenza Types A,B Antigen - Final Nasal Wash Negative for FLU A and B antigen Infection due to influenza A or B cannot be ruled out since the antigen present in the sample may be below the detection limit of the test. Imaging Studies: Impressions Chest X-Ray 01/24/18 00:00 CONCLUSION: Improved aeration. No evidence for pneumothorax. Thoracentesis Ultrasound 01/24/18 00:00 CONCLUSION: 1. Uncomplicated ultrasound-guided left thoracentesis. Medications: Active Medications Generic Name Dose Route Start Last Admin Trade Name Freq PRN Reason Stop Dose Admin Albuterol 1 ampul 01/23/18 16:00 01/25/18 11:32 Duoneb Neb (Jorge) NEB 1 ampul Q4HR NEB JORGE Administration Carvedilol 6.25 mg 01/23/18 21:00 01/25/18 08:47 Coreg PO 6.25 mg BID JORGE Administration Enalapril Maleate 10 mg 01/23/18 21:00 01/25/18 08:47 Vasotec PO 10 mg BID JORGE Administration Furosemide 40 mg 01/25/18 09:00 01/25/18 08:47 Lasix PO 40 mg DAILY JORGE Administration Sodium Chloride 2 ml 01/23/18 21:00 01/24/18 21:19 Ns Flush IV.FLUSH 2 ml BID JORGE Administration Temazepam 15 mg 01/23/18 21:00 01/24/18 21:19 Restoril PO 15 mg HS PRN Administration INSOMNIA Objective Remarks: GENERAL: Older male sitting up on side of bed getting breathing treatment in no obvious distress SKIN: Warm and dry. HEAD: Normocephalic. EYES: No scleral icterus. No injection or drainage. NECK: Supple, trachea midline. No JVD or lymphadenopathy. CARDIOVASCULAR: Regular rate and rhythm without murmurs. RESPIRATORY: Clear posteriorly, diminished to bilateral bases. GASTROINTESTINAL: Abdomen soft, non-tender, nondistended. EXTREMITIES: No cyanosis. Mild left lower extremity edema MUSCULOSKELETAL: Adequate muscle tone. NEUROLOGICAL: No obvious focal deficit. Awake, alert, and oriented x3. Assessment/Plan - Plan 67-year-old male who was originally diagnosed with in September 2004. Since diagnosis the patient has had multiple relapses with subsequent treatments and periods of remission since that time. He was referred for transplant however he is [employer] and is not a candidate. He was recently started on a new treatment with ibrutinib approximately 7 days ago. The patient developed some shortness of breath and was admitted to the emergency room. 1. Await echocardiogram. 2. Patient feeling much better. Once cleared by cardiology he can be discharged to follow-up in the outpatient clinic. - Attending Statement The exam, history, and the medical decision-making described in the above note were completed with the assistance of the mid-level provider. I reviewed and agree with the findings presented. I attest that I had a [id number] encounter with the patient on the same day, and personally performed and documented my assessment and findings in the medical record. feels much better. No SOB or PND Echo = LVEF 35-40% due to non ischemia cardiomyopathy. D/w Pt and to resume Imbruvica in 1 week. Ok to d/c Pt has FU appt with me.
--- NOTE | 2018-01-25 12:24 | P.PNFP ---
Subjective Interval history: Patient seen and examined bedside this morning. Patient states his shortness of breath is 100% better than from his admission. He has been using the nebulizer treatments and diuresing well. He is eating and drinking without difficulty. He has undergone both thoracenteses procedures without any difficulty. No chest pain or dizziness. No acute events overnight. He is asking when he can leave. Results - Labs Result diagrams: 01/24/18 07:02 01/24/18 07:02 Abnormal lab results 01/24/18 01/24/18 01/25/18 Range/Units 14:02 16:22 09:32 POC Glucose 128 H (68-110) mg/dl Pleural RBC 757 H 1564 H (0-0) /mm3 Pleural Nuc Cells 121 H 131 H (0-10) /mm3 - Imaging Impressions Chest X-Ray 01/24/18 00:00 CONCLUSION: Improved aeration. No evidence for pneumothorax. Thoracentesis Ultrasound 01/24/18 00:00 CONCLUSION: 1. Uncomplicated ultrasound-guided left thoracentesis. Chest X-Ray 01/25/18 00:00 CONCLUSION: Central venous catheter in good position. No acute abnormality seen. Cardiomegaly. Physical Exam Vital signs: Vital Signs 01/24/18 13:10 01/24/18 14:45 01/24/18 15:07 Temperature 98.7 F Pulse Rate 82 70 75 Respiratory Rate 20 20 20 Blood Pressure 109/65 113/58 L 133/64 Pulse Oximetry 92 L 92 L 92 L 01/24/18 17:52 01/24/18 18:56 01/24/18 20:00 Temperature 98.2 F 99.1 F Pulse Rate 66 77 79 Respiratory Rate 18 17 Blood Pressure 114/72 117/58 L Pulse Oximetry 99 93 L 01/24/18 20:09 01/24/18 22:34 01/25/18 00:00 Temperature 98.4 F Pulse Rate 82 76 78 Respiratory Rate 18 17 Blood Pressure 104/60 Pulse Oximetry 97 91 L 01/25/18 00:12 01/25/18 04:00 01/25/18 04:05 Temperature 98.0 F Pulse Rate 75 75 68 Respiratory Rate 17 16 Blood Pressure 103/65 Pulse Oximetry 96 01/25/18 09:03 01/25/18 09:55 01/25/18 11:33 Temperature 97.8 F 97.8 F Pulse Rate 78 65 62 Respiratory Rate 20 18 16 Blood Pressure 109/67 98/62 L Pulse Oximetry 94 L 97 01/25/18 11:35 Temperature Pulse Rate Respiratory Rate Blood Pressure Pulse Oximetry 97 Intake & Output 01/24/18 01/25/18 01/25/18 18:59 06:59 18:59 Intake Total 480 / 480 Balance 480 / 480 Weight 85.1 kg Intake: Oral 480 / 480 Other: # Voids 2 Date of Last Bowel Movement 01/24/18 01/24/18 - Constitutional no acute distress - Routine HEENT Exam Head: Present: normocephalic - Routine Respiratory Exam Present: CTA bilaterally, wheezes, crackles. Absent: accessory muscle use, decreased breath sounds Comments: wheezes and crackles in middle and lower lung [place], more prominent on left side - Routine Cardiovascular Exam Present: RRR, S1, S2 - Routine Abdominal Exam Present: soft, normoactive bowel sounds. Absent: tenderness - Routine Skin Exam Absent: erythema - Routine Neurological Exam Present: alert, oriented X3 Assessment and Plan - Assessment (1) Non Hodgkin's lymphoma Code(s): C85.90 - Non-Hodgkin lymphoma, unspecified, unspecified site Status: Acute Plan: Currently undergoing chemotherapy for non-Hodgkin's lymphoma, holding chemotherapy per consulted oncologist Dr. Coburn . No elevated white count or fever Hold chemotherapy drugs for now, continue to follow onc recommendations. On recommendations as follows -Follow-up echocardiogram and discharge with follow-up to oncology outpatient clinic, once patient is cleared by cardiology he can be discharged (2) Shortness of breath Code(s): R06.02 - Shortness of breath Status: Acute Plan: Shortness of breath with associated orthopnea and nonproductive cough for 1 weeks status post start of new chemotherapy pills. Crackles heard at the lung bases bilaterally on admission. CTA reveals large pleural effusions, subcutaneous metastatic nodules Differential Dx: Bilateral pleural effusions via metastatic nodules versus CHF versus infectious related versus drug-induced Follow-up diagnostic and therapeutic her sound guided thoracentesis, follow-up pathology BNP 680 on admission, decreased to 288 Echocardiogram; global hypokinesis, LV function moderate to severely reduced with an EF in the range of 35-40% Symptomatic treatment: Duonebs scheduled q4hrs Status post Lasix 40 mg IV x2 We will add p.o. Lasix starting tomorrow: 40 mg p.o. daily CXRay: .Mild basilar atelectasis left lung base. Cardiomegaly. Chest CTA: No evidence for pulmonary embolism. Subcutaneous metastatic nodules are identified as above. Large bilateral pleural effusions EKG: Left atrial enlargement, right bundle branch block. First-degree AV block. Echocardiogram ordered. Follow-up. Respiratory panel, strep pneumo antigen, Legionella antigen, influenza antigen ordered: negative (3) CHF (congestive heart failure) Code(s): I50.9 - Heart failure, unspecified Status: Acute Plan: Echocardiogram; global hypokinesis, LV function moderate to severely reduced with an EF in the range of 35-40% Recommendations per cardiology; nonischemic cardiomyopathy, blood pressures have improved with beta-tashia and YIMI inhibitor therapy, continue current medications, discharge and follow-up in [address] Zepeda. No aspirin because of thrombocytopenia. (4) Thrombocytopenia Code(s): D69.6 - Thrombocytopenia, unspecified Status: Acute Plan: Associated with cancer diagnosis, chemotherapy treatment, no signs of epistaxis or other hemorrhage Platelets on admission 79 --> 76 Patient is [employer], with strict adherence. No possibility for platelet infusion (5) Hypertension Code(s): I10 - Essential (primary) hypertension Status: Acute Plan: Previously not on blood pressure medication, blood pressures improved overnight with some borderline hypotensive pressures (98/62) BP 150/90 on admission, highest BP 153/99 Oncology consulted cardiology, added Vasotec 10 mg p.o. twice daily scheduled, carvedilol 6.25 mg p.o. twice daily scheduled Continue to follow-up recommendations of cardiology and will discharge on BP meds and follow-up as outpatient (6) History of diabetes mellitus Code(s): Z86.39 - Personal history of other endocrine, nutritional and metabolic disease Status: Acute Plan: She states history of diabetes that is now well controlled without medication Blood glucose levels slightly elevated, follow-up qftan-nr-htih glucose Add sliding scale for coverage (7) Nutrition, metabolism, and development symptoms Code(s): R63.8 - Other symptoms and signs concerning food and fluid intake Status: Acute Plan: Fluids: Encourage p.o. fluids, no IV fluids on diuretics Electrolytes: Monitor and replete as needed. Currently stable. Nutrition: Regular diet okay for thoracentesis (8) DVT prophylaxis Status: Acute Plan: SCDs only. Caution with anticoagulation with thrombocytopenia. - Assessment and Plan 67-year-old male currently undergoing chemotherapy for non-Hodgkin's lymphoma, presents with shortness of breath with associated orthopnea and nonproductive cough for 1 weeks status post start of new chemotherapy drugs. Discharge Planning: Discharge today, oncology has cleared and cardiology has cleared
[2018-01-25 13:19] VITALS: BP 120/67; PULSE 71; TEMP 98
--- NOTE | 2018-01-25 13:57 | ECHRPT ---
Indication: Pulmonary heart disease CONCLUSIONS Upper normal left ventricular size with normal wall thickness. Global hypokinesis.the left ventricu lar systolic function is [id number] reduced with an estimated ejection fraction in the range o f 35- 40%. Trace mitral valve regurgitation. Slight aortic valve sclerosis is present. Trace aortic valve regurgitation. There is trace tricuspid valve regurgitation. The estimated pulmonary arterial pressure is 35 mmHg. BP: / HR: Rhythm: MEASUREMENTS (Male / Female) Normal Values Technical Quality:Good 2D ECHO LV Diastolic Diameter PLAX 5.0 cm 4.2 - 5.9 / 3.9 - 5.3 cm LV Systolic Diameter PLAX 3.9 cm IVS Diastolic Thickness 1.0 cm 0.6 - 1.0 / 0.6 - 0.9 cm LVPW Diastolic Thickness 1.0 cm 0.6 - 1.0 / 0.6 - 0.9 cm LV Relative Wall Thickness 0.4 RV Internal Dim ED PLAX 3.2 cm LVOT Diameter 1.9 cm LA Systolic Diameter LX 4.0 cm 3.0 - 4.0 / 2.7 - 3.8 cm LV Ejection Fraction MOD 4C 45.4 % LV Ejection Fraction 4C AL 46.9 % M-MODE Aortic Root Diameter MM 2.5 cm LA Systolic Diameter MM 4.0 cm LA Ao Ratio MM 1.6 AV Cusp Separation MM 1.8 cm DOPPLER AV Peak Velocity 136.0 cm/s AV Peak Gradient 7.4 mmHg AI Peak Velocity 278.0 cm/s AI Peak Gradient 30.9 mmHg AI Pressure Half Time 573.0 ms LVOT Peak Velocity 81.4 cm/s LVOT Peak Gradient 2.7 mmHg AV Area Cont Eq pk 1.7 cm MV Area PHT 4.1 cm Mitral E Point Velocity 82.9 cm/s Mitral A Point Velocity 62.7 cm/s Mitral E to A Ratio 1.3 LV E' Lateral Velocity 6.8 cm/s Mitral E to LV E' Lateral Ratio 12.2 LV E' Septal Velocity 4.7 cm/s Mitral E to LV E' Septal Ratio 17.7 TR Peak Velocity 267.0 cm/s TR Peak Gradient 28.5 mmHg Right Atrial Pressure 10.0 mmHg Pulmonary Artery Systolic Pressu 38.5 mmHg Right Ventricular Systolic Press 38.5 mmHg PV Peak Velocity 107.0 cm/s PV Peak Gradient 4.6 mmHg FINDINGS LEFT VENTRICLE Upper normal left ventricular size with normal wall thickness. Global hypokinesis.the left ventricu lar systolic function is bgshoysq-ob-vmsbuzhl reduced with an estimated ejection fraction in the range o f 35- 40%. RIGHT VENTRICLE Normal right ventricular size and systolic function. LEFT ATRIUM The left atrial size is normal. RIGHT ATRIUM The right atrial size is normal. ATRIAL SEPTUM Normal atrial septal thickness without atrial level shunting by limited color doppler interrogation. AORTA The aortic root and proximal ascending aorta are normal in size on limited imaging. MITRAL VALVE Structurally normal mitral valve. Trace mitral valve regurgitation. AORTIC VALVE Trileaflet aortic valve. Slight aortic valve sclerosis is present. Trace aortic valve regurgitation. TRICUSPID VALVE Structurally normal tricuspid valve. There is trace tricuspid valve regurgitation. The estimated pulmonary arterial pressure is 35 mmHg. PULMONARY VALVE Trivial pulmonary valve regurgitation. VESSELS The inferior vena cava is normal in size. PERICARDIUM No pericardial effusion. Steve Zepeda MD (Electronically Signed) Final Date:25 January 2018 13:56
--- NOTE | 2018-01-25 14:07 | P.PNCA ---
Subjective Interval history: Denies dyspnea, CP, palpitations, dizziness, PND. Slept well. Physical Exam Vital signs: Vital Signs 01/24/18 14:45 01/24/18 15:07 01/24/18 17:52 Temperature 98.2 F Pulse Rate 70 75 66 Respiratory Rate 20 20 18 Blood Pressure 113/58 L 133/64 114/72 Pulse Oximetry 92 L 92 L 99 01/24/18 18:56 01/24/18 20:00 01/24/18 20:09 Temperature 99.1 F Pulse Rate 77 79 82 Respiratory Rate 17 Blood Pressure 117/58 L Pulse Oximetry 93 L 01/24/18 22:34 01/25/18 00:00 01/25/18 00:12 Temperature 98.4 F Pulse Rate 76 78 75 Respiratory Rate 18 17 Blood Pressure 104/60 Pulse Oximetry 97 91 L 01/25/18 04:00 01/25/18 04:05 01/25/18 09:03 Temperature 98.0 F 97.8 F Pulse Rate 75 68 78 Respiratory Rate 17 16 20 Blood Pressure 103/65 109/67 Pulse Oximetry 96 94 L 01/25/18 09:55 01/25/18 11:33 01/25/18 11:35 Temperature 97.8 F Pulse Rate 65 62 Respiratory Rate 18 16 Blood Pressure 98/62 L Pulse Oximetry 97 97 01/25/18 12:00 Temperature 98 F Pulse Rate 71 Respiratory Rate 18 Blood Pressure 120/67 Pulse Oximetry 97 Intake & Output 01/24/18 01/25/18 01/25/18 18:59 06:59 18:59 Intake Total 480 / 480 Balance 480 / 480 Weight 85.1 kg Intake: Oral 480 / 480 Other: # Voids 2 Date of Last Bowel Movement 01/24/18 01/24/18 - Constitutional no acute distress - Routine Neck Exam Present: JVD Comments: JVP about 8 cm water - Routine Respiratory Exam Present: CTA bilaterally - Routine Cardiovascular Exam Present: RRR, S1, S2. Absent: murmur, gallop - Routine Abdominal Exam Present: soft, normoactive bowel sounds. Absent: tenderness, organomegaly - Routine Extremities Exam Absent: cyanosis, clubbing, edema Assessment and Plan - Assessment (1) Congestive heart failure Code(s): I50.9 - Heart failure, unspecified Status: Acute Plan: Doing well after diuresis and bilateral thoracenteses. Echo shows globally reduced left ventricular systolic function with EF ~35-40%. Suspect non- ischemic cardiomyopathy. BP's much better on beta tashia, YIMI-I therapy. REC continue same. OK to discharge from my standpoint, 4 week follow up with me. (2) Paroxysmal atrial fibrillation Code(s): I48.0 - Paroxysmal atrial fibrillation Status: Chronic Plan: Reportedly paroxysmal atrial fibrillation diagnosed 10 years ago with no significant recurrences. Recommend continue beta tashia therapy. No aspirin with his thrombocytopenia. - Plan Code Status: full code Discussed Condition With: patient and family (1) Congestive heart failure Qualifiers: Heart failure type: unspecified Heart failure chronicity: acute Qualified Code(s): I50.9 - Heart failure, unspecified
[2018-01-25 14:41] LABS: Amylase, Body Fluid 13 U/L
--- NOTE | 2018-01-25 14:50 | P.PNFP ---
Subjective Interval history: Patient seen and examined bedside after thoracentesis procedure today. Patient states he feels 100% better than the day of his original admission. He denies any shortness of breath while ambulating or shortness of breath while lying down. He has been able to lie flat and sleep without any difficulties. He does not have any postprocedure pain. No chest pain or dizziness. No acute events overnight. No fever/chills. Patient anticipates hopefully going home today. Results - Labs Result diagrams: 01/24/18 07:02 01/24/18 07:02 Abnormal lab results 01/24/18 01/24/18 01/25/18 Range/Units 14:02 16:22 09:32 POC Glucose 128 H (68-110) mg/dl Pleural RBC 757 H 1564 H (0-0) /mm3 Pleural Nuc Cells 121 H 131 H (0-10) /mm3 - Imaging Impressions Chest X-Ray 01/24/18 00:00 CONCLUSION: Improved aeration. No evidence for pneumothorax. Thoracentesis Ultrasound 01/24/18 00:00 CONCLUSION: 1. Uncomplicated ultrasound-guided left thoracentesis. Chest X-Ray 01/25/18 00:00 CONCLUSION: Central venous catheter in good position. No acute abnormality seen. Cardiomegaly. Physical Exam Vital signs: Vital Signs 01/24/18 15:07 01/24/18 17:52 01/24/18 18:56 Temperature 98.2 F Pulse Rate 75 66 77 Respiratory Rate 20 18 Blood Pressure 133/64 114/72 Pulse Oximetry 92 L 99 01/24/18 20:00 01/24/18 20:09 01/24/18 22:34 Temperature 99.1 F Pulse Rate 79 82 76 Respiratory Rate 17 18 Blood Pressure 117/58 L Pulse Oximetry 93 L 97 01/25/18 00:00 01/25/18 00:12 01/25/18 04:00 Temperature 98.4 F 98.0 F Pulse Rate 78 75 75 Respiratory Rate 17 17 Blood Pressure 104/60 103/65 Pulse Oximetry 91 L 96 01/25/18 04:05 01/25/18 09:03 01/25/18 09:55 Temperature 97.8 F 97.8 F Pulse Rate 68 78 65 Respiratory Rate 16 20 18 Blood Pressure 109/67 98/62 L Pulse Oximetry 94 L 97 01/25/18 11:33 01/25/18 11:35 01/25/18 12:00 Temperature 98 F Pulse Rate 62 71 Respiratory Rate 16 18 Blood Pressure 120/67 Pulse Oximetry 97 97 Intake & Output 01/24/18 01/25/18 01/25/18 18:59 06:59 18:59 Intake Total 480 / 480 Balance 480 / 480 Weight 85.1 kg Intake: Oral 480 / 480 Other: # Voids 2 Date of Last Bowel Movement 01/24/18 01/24/18 - Constitutional no acute distress - Routine Respiratory Exam Present: CTA bilaterally Assessment and Plan - Assessment (1) Non Hodgkin's lymphoma Code(s): C85.90 - Non-Hodgkin lymphoma, unspecified, unspecified site Status: Acute Plan: Currently undergoing chemotherapy for non-Hodgkin's lymphoma, holding chemotherapy per consulted oncologist Dr. Coburn . Concerns for neutropenia/infection considering on chemotherapy, WBC stable at 5.2, slightly increased from baseline 3-4 on previous admissions . Will continue to monitor CBC Hold chemotherapy drugs for now, continue to follow onc recommendations. Hypercoagulable state. Continue to monitor PT/INR. SCDs only. (2) Shortness of breath Code(s): R06.02 - Shortness of breath Status: Acute Plan: Shortness of breath with associated orthopnea and nonproductive cough for 1 weeks status post start of new chemotherapy pills. Crackles heard at the lung bases bilaterally on admission. CTA reveals large pleural effusions, subcutaneous metastatic nodules Differential Dx: Bilateral pleural effusions via metastatic nodules versus CHF versus infectious related versus drug-induced Follow-up diagnostic and therapeutic her sound guided thoracentesis, follow-up pathology BNP 680 on admission, decreased to 288 today Follow-up echocardiogram Symptomatic treatment: Duonebs scheduled q4hrs Status post Lasix 40 mg IV x2 We will add p.o. Lasix starting tomorrow: 40 mg p.o. daily CXRay: .Mild basilar atelectasis left lung base. Cardiomegaly. Chest CTA: No evidence for pulmonary embolism. Subcutaneous metastatic nodules are identified as above. Large bilateral pleural effusions EKG: Left atrial enlargement, right bundle branch block. First-degree AV block. Echocardiogram ordered. Follow-up. Respiratory panel, strep pneumo antigen, Legionella antigen, influenza antigen ordered: negative (3) Thrombocytopenia Code(s): D69.6 - Thrombocytopenia, unspecified Status: Acute Plan: Associated with cancer diagnosis, chemotherapy treatment, no signs of epistaxis or other hemorrhage Platelets on admission 79 --> 76 today Patient is Christianity, with strict adherence. No possibility for platelet infusion Continue to monitor platelets daily (4) Hypertension Code(s): I10 - Essential (primary) hypertension Status: Acute Plan: Previously not on blood pressure medication, blood pressures improved overnight with some borderline hypotensive pressures (93/56) BP 150/90 on admission, highest BP 153/99 Oncology consulted cardiology, added Vasotec 10 mg p.o. twice daily scheduled, carvedilol 6.25 mg p.o. twice daily scheduled Continue to follow-up recommendations of cardiology and will likely discharge on BP meds and follow-up as outpatient (5) Elevated brain natriuretic peptide (BNP) level Code(s): R79.89 - Other specified abnormal findings of blood chemistry Status : Acute Plan: See plan for CHF evaluation above Follow-up echocardiogram Follow up recommendations of cardiology (6) History of diabetes mellitus Code(s): Z86.39 - Personal history of other endocrine, nutritional and metabolic disease Status: Acute Plan: She states history of diabetes that is now well controlled without medication Blood glucose levels slightly elevated, follow-up [id number] glucose Add sliding scale for coverage (7) Nutrition, metabolism, and development symptoms Code(s): R63.8 - Other symptoms and signs concerning food and fluid intake Status: Acute Plan: Fluids: Encourage p.o. fluids, no IV fluids on diuretics Electrolytes: Monitor and replete as needed. Currently stable. Nutrition: Regular diet okay for thoracentesis (8) DVT prophylaxis Status: Acute Plan: SCDs only. Caution with anticoagulation with thrombocytopenia. Will add Lovenox after procedure. - Assessment and Plan 67-year-old male currently undergoing chemotherapy for non-Hodgkin's lymphoma, presents with shortness of breath with associated orthopnea and nonproductive cough for 1 weeks status post start of new chemotherapy drugs. Discharge Planning: Discharge pending thoracentesis for diagnostic and therapeutic purposes, clearance from oncology for follow-up, scheduled outpatient follow-up with cardiology
[2018-01-25 15:57] VITALS: RESP 16
--- NOTE | 2018-01-25 16:19 | US ---
EXAM DATE: 01/25/2018 11:55 AM EDT AGE/SEX: 67 years / Male INDICATIONS: Right pleural effusion. CLINICAL DATA: This is the patient's initial encounter. Patient reports that signs and symptoms have been present for 3 days and indicates a pain score of 0/10. MEDICAL/SURGICAL HISTORY: . Cancer of neck. Non-Hodgkin's lymphoma. Cholecystectomy. Colon re section. Gastric bypass. COMPARISON: [facility] [place], US GUIDED THORACENTESIS LEFT, 01/24/2018. . FLUID: Total volume of 200cc clear, laurie cc of . fluid was removed. Fluid was sent to lab for ordered studies. . . TECHNIQUE: Ultrasound guidance for thoracentesis. Thoracentesis. The risks, benefits, and alternatives to ultrasound guided thoracentesis were explained to the patien t in lay simple terms, including the risk of bleeding and infection. Written and verbal informed con sent was obtained. Appropriate area for right thoracentesis was marked under ultrasound guidance with the patient in the upright position. Overlying skin was prepped and draped in the usual sterile fashion and with local anesthetic, a dermatotomy was made with an 11 blade scalpel. A 6 Belgian thoracentesis catheter was placed in the pleural space and fluid was removed. Catheter was then removed and a sterile dressing applied. There were no immediate complications. The patient tolerated the procedure well and the lef t the ultrasound suite in stable condition. Chest radiograph is to be obtained. FINDINGS: Very small right-sided pleural effusion CONCLUSION: 1. Uncomplicated ultrasound guided right thoracentesis. Electronically signed by: Malcom Maguire MD 01/25/2018 4:18 PM EDT
--- NOTE | 2018-01-26 11:46 | P.DS ---
Date of admission: 01/23/18 13:55 Primary care physician: Álvaro Henson MD Brief History from admission: 67 year old male with PMH of non-Hodgkin's lymphoma currently on chemo (started last Tuesday) presents to the ED due to shortness of breath. This started a week ago when he started the chemotherapy pills. It's gotten progressively worse to the point where he cant breathe at night when laying flat. It feels better when he sits up but today he's noticed the shortness of breath to be present while sitting up. Sleeping with his head elevated helps and laying flat makes the shortness of breath worse. He has also developed an associated cough, but denies any productive sputum. He has tried OTC Mucinex which helped the first day but now is not helping. He had associated pain around the RUQ when he coughs. He has been under chemotherapy treatment since 2004 due to multiple types of cancers but this is the first time he had symptoms like this affiliated with chemo pills. This is his first time doing chemotherapy pills. He had to stop the other chemo method due to low platelet count. Denies any sick contacts. Oncology: Dr. Marie DS: Diagnosis - Discharge Diagnosis (1) Non Hodgkin's lymphoma Status: Acute (2) Shortness of breath Status: Acute (3) Elevated brain natriuretic peptide (BNP) level Status: Acute (4) Elevated glucose Status: Acute (5) Nutrition, metabolism, and development symptoms Status: Acute (6) DVT prophylaxis Status: Acute DS: Medications - Discharge Medications Prescriptions: carvedilol [Coreg] 6.25 mg PO BID 30 Days #60 tab enalapril maleate 10 mg PO BID 30 Days #60 tab furosemide [Lasix] 20 mg PO DAILY 6 Days #9 tab ipratropium-albuterol 1 amp NEB Q4HR NEB PRN 30 Days #30 ml PRN Reason: Shortness Of Breath DS: Summary Hospital Course: 67-year-old male, Jehov[employer] witness, currently undergoing chemotherapy for non- Hodgkin's lymphoma, presents to the ED with shortness of breath with associated orthopnea and nonproductive cough for 1 week status post start of new chemotherapy drug Imbruvica. On admission, patient was found to be hypertensive , physical exam showed crackles auscultated bilaterally lung bases. CT of chest showed subcutaneous metastatic nodules with large bilateral pleural effusions. EKG showed left atrial enlargement, right bundle branch block. First-degree AV block. Infectious workup was negative. BNP was elevated. Echocardiogram showed ejection fraction of 35-40%. Patient was started on furosemide 40 mg IV daily, Vasotec 1.25 mg as needed for hypertension and an ultrasound-guided thoracentesis was done to evaluate the nature of the effusion. Albuterol and DuoNeb were added for shortness of breath. Cardiology and oncology was consulted. Cardiology diagnosed patient with nonischemic cardiomyopathy, added on beta-tashia and lupe inhibitor to improve blood pressures. Advised to follow -up in 4 weeks for CHF workup. Oncology d/c Imbruvica and told patient to follow-up in 1 week to discuss resuming medication. Improved clinically after two Lasix boluses and thoracentesis was done. Pathology on thoracentesis to be followed up. Patient was discharged on carvedilol 6.25 mg twice daily. Enalapril 10 mg twice daily. Furosemide 20 mg daily. Ipratropium-albuterol 0.5 mg to 3 mg every 4 nebulizer. Patient has a BMP to follow-up in 1 week. He is to see his oncologist Dr. Coburn, Dr. Zepeda cardiology, and Dr. Henson (PCP) in the upcoming weeks for follow-up. - Time Spent with Patient Total time spent providing and/or coordinating discharge services: Less than 30 minutes - Quality: VTE Deep Vein Thrombosis/Pulmonary Embolism Present on Admission: No Exam Vital signs: Vital Signs 01/25/18 11:33 01/25/18 11:35 01/25/18 12:00 Temperature 98 F Pulse Rate 62 71 Respiratory Rate 16 18 Blood Pressure 120/67 Pulse Oximetry 97 97 01/25/18 15:56 Temperature Pulse Rate 71 Respiratory Rate 16 Blood Pressure Pulse Oximetry Results Procedures completed during hospitalization: Ultrasound-guided thoracentesis on 01/25. Labs on day of discharge: Labs from last 24 hours 01/25/18 01/24/18 09:32 14:02 Body Fluid Amylase Source Pleural Fluid Amylase 13 Pleural LDH 134 Preliminary micro results at discharge 01/24/18 14:02 Body Fluid Culture - Preliminary Fluid - Pleural fluid No growth in 48 hours - Impressions ITS Impressions Chest CTA 01/23/18 12:09 CONCLUSION: 1. No evidence for pulmonary embolism. 2. Subcutaneous metastatic nodules are identified as above. 3. Large bilateral pleural effusions. Chest X-Ray 01/25/18 00:00 CONCLUSION: Central venous catheter in good position. No acute abnormality seen. Cardiomegaly. Thoracentesis Ultrasound 01/25/18 00:00 CONCLUSION: 1. Uncomplicated ultrasound guided right thoracentesis. Discharge Plan - Discharge Disposition Patient Disposition: Discharge Home - Discharge Condition Condition: Stable - Discharge Order Discharge Orders: Discharge Order (Routine); Ordered 01/25/18 Ordered By: Vida Gimenez Cardiology Clear for Discharge (Routine); Ordered 01/25/18 Ordered By: Steve Zepeda - Physicians Team Primary Care Provider: Álvaro Henson Attending Provider: Jerardo Herr Other Providers: Teresa Coburn MD ; Steve Zepeda MD
== END 2018-01-25 18:29 | disposition home or self-care (01) ==
LOC: NEPC 10:00 → NEDA 13:55 → N04 18:49 → HCIN 01-24 18:46
PROVIDERS: ADMIT Family Medicine; ATTEND Family Medicine